=== PATIENT | female | born 1940 | race Caucasian/White ===

== ENCOUNTER 2016-12-14 16:35 | Inpatient (IN) | payer OTHER ==
[~2016-12-14] VITALS: Ht 167.6 cm; Wt 89.2 kg
[~2016-12-14 16:35] MED LIST: ACET-1311 PO; AMLO5TAB2 PO; ASPCH81X PO; CITA10TA8 PO; CLON0.3D4 TD; INSU100I SC; INSUINJ12 SC; LOSA100T65 PO; MELA1TAB5 PO; MOMLX PO; POTA10CA28 PO; SODIENE PR; dulcolax supp RE
[2016-12-14 16:40] VITALS: Ht 167.6 cm; Wt 89.2 kg
[2016-12-14] MEDS ORDERED: LOSARTAN POTASSIUM 50 MG TAB PO STA (17:24)
[2016-12-14] MEDS ORDERED: AMLODIPINE BESYLATE 5 MG TAB PO STA (17:24)
[2016-12-14 17:35] LABS: BASO % 0.2 %; BASO ABS # 0.01 K/uL (0-0.2); COMPLETE YES; HEMATOCRIT 31.7 % (37-47); IG% 0.4 %; LYMPH % 15.7 %; LYMPH ABS # 0.78 K/uL (1.2-3.4); MEAN CELL VOLUME 85.4 fL (80-100); MEAN CORPUSCULAR HEMOGLOBIN 30.2 pg (25-34); MEAN CORPUSCULAR HGB CONC 35.3 g/dl (32-36); MEAN PLATELET VOLUME 10.3 fL (7.4-10.4); MONO % 7.8 %; NEUT % 75.9 %; PLATELET COUNT 164 K/uL (130-400); RED BLOOD COUNT 3.71 M/uL (4.2-5.4); WHITE BLOOD COUNT 4.97 K/uL (4.8-10.8)
[2016-12-14 17:46] LABS: BUN/CREATININE RATIO 28.5 (10-20); CALCIUM 8.6 mg/dl (8.5-10.1); CREATININE 0.93 mg/dl (0.60-1.20); POTASSIUM 4.6 mmol/L (3.5-5.1)
--- NOTE | 2016-12-14 18:54 | EMERGENCY ROOM VISIT NOTE ---
History Report prepared by Adiel: Sarah Dhaliwal Under the Supervision of: Dr. Fredy Almazan M.D. First contact with patient: 17:13 Chief Complaint: HYPERTENSION Stated Complaint: SENT BY [facility], HIGH BP History of Present Illness The patient is a 76 year old female who presents to the Emergency Room with complaints of persistent hypertension. She received an IV IG infusion at the [facility] earlier today and reports her blood pressure "has been high for the whole day". She admits to a history of hypertension for "20 years" and states she missed her morning dose before she arrived at her infusion appointment because she was rushed. She was given .1 mg of Clonidine around 1300 at the [facility], but states she did not receive her daily dose of Norvasc or her other medication. Staff at the [facility] then checked her blood pressure and noticed it was still elevated, so they referred the patient to the ED. She normally resides at [facility]. She admits to some current blurry vision but denies any dizziness or headache, chest pain, shortness of breath, nausea, vomiting, numbness or weakness in her legs or urinary symptoms. 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 A total of 10 systems reviewed and were otherwise negative. Past Medical & Surgical Medical Problems: (1) CIDP (chronic inflammatory demyelinating polyneuropathy) (2) Diab Felisha Wo Comp Type I Not Uncontrolled (3) Hypertension Nos Surgical Problems: (1) History of cholecystectomy (2) History of tonsillectomy Social History Smoking Status: Never Smoker Alcohol Use: none Drug Use: none Marital Status: Housing Status: pen[facility]entiary ([facility]) Occupation Status: retired Current/Historical Medications Scheduled Acetaminophen (Tylenol), 325 MG PO DIRECTED Amlodipine Besylate (Norvasc), 10 MG PO DAILY Aspirin (Aspirin Chewable), 81 MG PO DAILY Insulin Detmir (Levemir), 17 UNITS SC BID Insulin Lispro (Human) (Humalog), 10 UNITS SC BID Allergies Coded Allergies: Mycophenolate (Verified Allergy, Unknown, unknown, 12/14/16) info from [facility] Nortriptyline (Verified Allergy, Unknown, unknown, 12/14/16) info from [facility] Gabapentin (Verified Adverse Reaction, Intermediate, DOUBLE VISION, NAUSEA , VOMITING, 12/14/16) Physical Exam Vital Signs Date Time Temp Pulse Resp B/P Pulse Ox O2 Delivery O2 Flow Rate FiO2 12/14/16 17:49 48 18 230/89 99 Room Air 12/14/16 16:40 36.4 49 18 213/80 98 Room Air Physical Exam Constitutional: Vital signs reviewed. Eyes: Pupils are equal round reactive to light. Conjunctiva are noninjected. ENT: Pharynx is clear without erythema or exudate. Mucous membranes are moist. Neck supple without meningeal signs. Respiratory: Clear to auscultation bilaterally. Breath sounds are equal bilaterally. Cardiovascular: Regular rate and rhythm. No rubs or gallops. GI: Soft, nondistended and nontender. Bowel sounds are present. Musculoskeletal: No peripheral edema. Integumentary: No cyanosis. Neurological: The patient is awake and alert. Cranial nerves II-XII are intact. Motor is 5 out of 5 all extremities. Sensation is intact to light touch all extremities. Normal speech. Psychiatric: Normal affect. Medical Decision & Procedures Laboratory Results 12/14/16 17:05 Red Blood Count 3.71, Mean Corpuscular Volume 85.4, Mean Corpuscular Hemoglobin 30.2, Mean Corpuscular Hemoglobin Concent 35.3, Mean Platelet Volume 10.3, Neutrophils (%) (Auto) 75.9, Lymphocytes (%) (Auto) 15.7, Monocytes (%) (Auto) 7.8, Eosinophils (%) (Auto) 0.0, Basophils (%) (Auto) 0.2, Neutrophils # (Auto) 3.77, Lymphocytes # (Auto) 0.78, Monocytes # (Auto) 0.39, Eosinophils # (Auto) 0.00, Basophils # (Auto) 0.01 12/14/16 17:05 Test 12/14/16 17:05 12/14/16 18:31 White Blood Count 4.97 K/uL (4.8-10.8) Red Blood Count 3.71 M/uL (4.2-5.4) Hemoglobin 11.2 g/dL (12.0-16.0) Hematocrit 31.7 % (37-47) Mean Corpuscular Volume 85.4 fL (80-100) Mean Corpuscular Hemoglobin 30.2 pg (25-34) Mean Corpuscular Hemoglobin Concent 35.3 g/dl (32-36) Platelet Count 164 K/uL (130-400) Mean Platelet Volume 10.3 fL (7.4-10.4) Neutrophils (%) (Auto) 75.9 % Lymphocytes (%) (Auto) 15.7 % Monocytes (%) (Auto) 7.8 % Eosinophils (%) (Auto) 0.0 % Basophils (%) (Auto) 0.2 % Neutrophils # (Auto) 3.77 K/uL (1.4-6.5) Lymphocytes # (Auto) 0.78 K/uL (1.2-3.4) Monocytes # (Auto) 0.39 K/uL (0.11-0.59) Eosinophils # (Auto) 0.00 K/uL (0-0.5) Basophils # (Auto) 0.01 K/uL (0-0.2) RDW Standard Deviation 43.0 fL (36.4-46.3) RDW Coefficient of Variation 13.8 % (11.5-14.5) Immature Granulocyte % (Auto) 0.4 % Immature Granulocyte # (Auto) 0.02 K/uL (0.00-0.02) Anion Gap 9.0 mmol/L (3-11) Est Creatinine Clear Calc Drug Dose 61.1 ml/min Estimated GFR () 68.7 Estimated GFR (Non- 59.3 BUN/Creatinine Ratio 28.5 (10-20) Calcium Level 8.6 mg/dl (8.5-10.1) Troponin I 0.160 ng/ml (0-0.045) Laboratory results as reviewed by me. Medications Administered Medications (Trade) Dose Ordered Sig/Mila Route Start Time Stop Time Status Last Admin Dose Admin Losartan Potassium (coZAAR TAB) 100 mg NOW STAT PO 12/14/16 17:24 12/14/16 17:25 DC 12/14/16 17:40 100 MG Amlodipine Besylate (Norvasc Tab) 5 mg NOW STAT PO 12/14/16 17:24 12/14/16 17:25 DC 12/14/16 17:40 5 MG ECG Indication: other (elevated blood pressure) Rate (beats per minute): 50 Rhythm: sinus bradycardia Findings: no acute ischemic change, no ectopy ED Course 171: The patient was evaluated in room C3. A complete history and physical exam was performed. 172: Norvasc Tab 5 mg PO, Losartan Potassium 100 mg PO. 181: I reevaluated the patient. She has had no chest pain or shortness of breath. Her blood pressure is still elevated but she just recently got her blood pressure medication. 184: I discussed the patients case with Dr. Langford [facility] Hospitalist. The patient will be further evaluated. Medical Decision This is a 76-year-old female who presents with elevated blood pressure. Differential diagnosis includes essential hypertension, medication noncompliance , metabolic derangement, hypertensive urgency. I did perform a limited focused review of portions of the patient's old chart on the electronic medical record. The patient has had progressively elevated blood pressures for the past several months. She has been bradycardic as well. I did evaluate the patient as noted above. The patient is currently asymptomatic. She does have significantly elevated blood pressures. She does state that she did not take her blood pressure medicines this morning in order to get the EMT you. She was given clonidine in the EMT. IV access was established. The patient was placed on a continuous monitoring analyst. I did treat her with Norvasc and Cozaar. I did order and personally review the patient's 12-lead EKG and chest x-ray as described above. I did order and review the patient's blood work as noted in the electronic medical record. Her blood work demonstrates a slightly elevated troponin. I did reassess the patient. She still has elevated blood pressures but she just received the medication. I did not wish to give her anymore immediately to avoid over correcting her blood pressure. She is bradycardic but she has been bradycardic in the past and is currently asymptomatic. She denies having any chest discomfort or shortness of breath. She will be hospitalized for further management. I did discuss case with the hospital setting high risk case manager. Consults Time Called: 183 Consulting Physician: Dr. Langford [facility] Hospitalist Returned Call: [phone] I discussed the patients case with Dr. Langford [facility] Hospitalist. The patient will be further evaluated. Impression Primary Impression: Hypertensive urgency Additional Impression: Elevated troponin Scribe Attestation The scribe's documentation has been prepared under my direct and personally reviewed by me in its entirety. I confirm that the note above accurately reflects all work, treatment, procedures, and medical decision making performed by me. Departure Information Dispostion Being Evaluated By Hospitalist Referrals [facility] (PCP) Patient Instructions My [facility] Problem Qualifiers
[2016-12-14] MEDS ORDERED: ALUMINUM/MAGNESIUM/SIMETH (MAALOX MAX) 30 ML UDC PO PRN (19:15)
[2016-12-14] MEDS ORDERED: LORAZEPAM 2 MG/ML 1 ML VIAL IV PRN (19:15)
[2016-12-14] MEDS ORDERED: PROMETHAZINE HCL INJ 12.5 MG in SODIUM CHLORIDE 0.9% 50ML 50 ML IV PRN (19:15)
[2016-12-14] MEDS ORDERED: ACETAMINOPHEN 325 MG TAB PO PRN ×2 (19:15)
[2016-12-14] MEDS ORDERED: MAGNESIUM HYDROXIDE SUSP 30 ML UDC PO PRN (19:15)
[2016-12-14] MEDS ORDERED: ONDANSETRON INJ 2 MG/ML 2 ML VIAL IV PRN (19:15)
[2016-12-14] MEDS ORDERED: DiphenhydrAMINE HCL 50 MG/ML VIAL IV PRN (19:15)
[2016-12-14] MEDS ORDERED: MoRPHine SULFATE 2 MG/ML CARP IV PRN (19:15)
[2016-12-14] MEDS ORDERED: NITROGLYCERIN 0.4 MG SL PER TAB CHARGE SL PRN (19:15)
[2016-12-14] MEDS ORDERED: ZOLPIDEM TARTRATE 5 MG TAB PO PRN ×2 (19:15)
[2016-12-14] MEDS ORDERED: BISACODYL 10 MG SUPP PR PRN (19:15)
[2016-12-14] MEDS ORDERED: ASPIRIN 81 MG CHEW PO STA (19:21)
--- NOTE | 2016-12-14 19:26 | History and Physical ---
History & Physical Date & Time of Service: Dec 14, 2016 at 19:25 Chief Complaint: Sent By [facility], High Bp Primary Care Physician: [facility] Sheehan History of Present Illness Source: patient The patient is a 76-year-old female who is referred to the emergency department from the [facility] when she arrived therefore routine IVIG infusion was found to have elevated blood pressure with systolic over 200. She admits to missing her morning dose of medications for blood pressure before going to the infusion clinic today. She was given 0.1 mg clonidine around 1300 hrs. clinic and blood pressure was persistently elevated and she was referred to ED for assessment. In the emergency department, her blood pressure was elevated, and routine blood tests revealed elevated troponin of 0.160, at which point she was referred for evaluation for admission. The patient denies chest pain or shortness of breath. 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 (2) Diab Felisha Wo Comp Type I Not Uncontrolled Status: Chronic (3) Hypertension Nos Status: Chronic Surgical Problems: (1) History of cholecystectomy Status: Resolved (2) History of tonsillectomy Status: Resolved Social History Smoking Status: Never Smoker Smokeless Tobacco Use: No Alcohol Use: none Drug Use: none Marital Status: Occupational Status: retired Multi-Drug Resistant Organisms History of MDRO: No Allergies Coded Allergies: Mycophenolate (Verified Allergy, Unknown, unknown, 12/14/16) info from [place] [facility] Nortriptyline (Verified Allergy, Unknown, unknown, 12/14/16) info from [facility] Gabapentin (Verified Adverse Reaction, Intermediate, DOUBLE VISION, NAUSEA , VOMITING, 12/14/16) Home Medications Scheduled Acetaminophen (Tylenol), 325 MG PO DIRECTED Amlodipine Besylate (Norvasc), 10 MG PO DAILY Aspirin (Aspirin Chewable), 81 MG PO DAILY Insulin Detmir (Levemir), 17 UNITS SC BID Insulin Lispro (Human) (Humalog), 10 UNITS SC BID Review of Systems The patient denies chest pain, palpitations, shortness of breath, cough, lower extremity swelling, vision change, hearing change, sore throat, fevers, chills, sweats, weight change, fatigue, nausea, vomiting, abdominal pain, pelvic pain, blood in urine or stool, dysuria, urinary frequency or urgency, lightheadedness , dizziness, headache, memory loss, rash, abnormal bruising or bleeding, imbalance, focal or generalized weakness, numbness or tingling in arms or legs, arthralgias or myalgias, back or neck pain, night sweats, or allergy symptoms. The review of systems is otherwise negative other than for that already noted above, and at least 10 systems have been reviewed. Physical Exam Vital Signs Date Time Temp Pulse Resp B/P Pulse Ox O2 Delivery O2 Flow Rate FiO2 12/14/16 19:03 47 18 224/94 97 Room Air 12/14/16 17:49 48 18 230/89 99 Room Air 12/14/16 16:40 36.4 49 18 213/80 98 Room Air The patient is awake, well-developed and adequately nourished, alert and oriented 3, normocephalic and atraumatic, lying in bed and in no acute distress. HEENT--PERRL, EOMI, mucous membranes moist, and oropharynx normal. Neck--supple, no JVD or bruits, thyroid normal, trachea midline, no adenopathy. Heart--normal S1 and S2, no extra beats, no murmurs, rubs or gallops. Lungs--clear bilaterally with good air movement, no respiratory distress, no accessory muscle use. Abdomen--normal bowel sounds and soft, nontender and nondistended, no hernias or masses, no organomegaly. Extremities--no cyanosis, clubbing or edema. There are good distal pulses b/l. Dermatologic--normal skin turgor, normal color, warm and dry, no abnormal lymph nodes, no rash. Neurologic--cranial nerves II through XII grossly intact, motor and sensory examination normal. Rheumatologic--normal range of motion, nontender, muscles and joints. Psychiatric--normal affect. Diagnostics Laboratory Results Results Past 24 Hours Test 12/14/16 17:05 12/14/16 19:11 Range/Units White Blood Count 4.97 4.8-10.8 K/uL Red Blood Count 3.71 4.2-5.4 M/uL Hemoglobin 11.2 12.0-16.0 g/dL Hematocrit 31.7 37-47 % Mean Corpuscular Volume 85.4 80-100 fL Mean Corpuscular Hemoglobin 30.2 25-34 pg Mean Corpuscular Hemoglobin Concent 35.3 32-36 g/dl Platelet Count 164 130-400 K/uL Mean Platelet Volume 10.3 7.4-10.4 fL Neutrophils (%) (Auto) 75.9 % Lymphocytes (%) (Auto) 15.7 % Monocytes (%) (Auto) 7.8 % Eosinophils (%) (Auto) 0.0 % Basophils (%) (Auto) 0.2 % Neutrophils # (Auto) 3.77 1.4-6.5 K/uL Lymphocytes # (Auto) 0.78 1.2-3.4 K/uL Monocytes # (Auto) 0.39 0.11-0.59 K/uL Eosinophils # (Auto) 0.00 0-0.5 K/uL Basophils # (Auto) 0.01 0-0.2 K/uL RDW Standard Deviation 43.0 36.4-46.3 fL RDW Coefficient of Variation 13.8 11.5-14.5 % Immature Granulocyte % (Auto) 0.4 % Immature Granulocyte # (Auto) 0.02 0.00-0.02 K/uL Sodium Level 129 136-145 mmol/L Potassium Level 4.6 3.5-5.1 mmol/L Chloride Level 98 98-107 mmol/L Carbon Dioxide Level 22 21-32 mmol/L Anion Gap 9.0 3-11 mmol/L Blood Urea Nitrogen 27 7-18 mg/dl Creatinine 0.93 0.60-1.20 mg/dl Est Creatinine Clear Calc Drug Dose 61.1 ml/min Estimated GFR () 68.7 Estimated GFR (Non- 59.3 BUN/Creatinine Ratio 28.5 10-20 Random Glucose 191 70-99 mg/dl Calcium Level 8.6 8.5-10.1 mg/dl Troponin I 0.160 0-0.045 ng/ml Creatine Kinase MB Ratio 0-3.0 EKG EKG shows Sinus bradycardia at a rate of 50 bpm, with no acute ST-T changes. Impression Assessment and Plan Hypertensive urgency, with elevated troponin--the patient will be admitted to the telemetry unit, for serial cardiac enzymes, cardiac rhythm monitoring, and a 2-D echocardiogram with Dopplers. She had been given clonidine 0.1 mg while at the [facility], and amlodipine 10 mg orally and Cozaar 100 mg orally while in the emergency department, with persistently elevated blood pressure. She'll be placed on Nitropaste 1 inch to the anterior chest wall every 6 hours, and hydralazine 10 mg IV every 4 hours when necessary systolic blood pressure greater than 150. Continue aspirin chewable 81 mg by mouth daily. Diabetes mellitus--continue insulin Levemir 17 units subcutaneous twice a day, and hold her usual Humalog 10 units subcutaneous twice a day. Place on Accu- Cheks before meals and at bedtime with NovoLog coverage. Hyponatremia--she'll be on normal saline with potassium chloride 20 mEq at 100 ML's per hour, and will recheck a BMP and magnesium levels in the a.m. Level of Care Telemetry Advanced Directives Existing Advance Directive: No Existing Living Will: No Existing Power of Public Health Nutritionist: No Resuscitation Status FULL RESUSCITATION VTE Prophylaxis VTE Risk Assessment Done? Y/N: Yes Risk Level: Moderate Given or contraindicated: SCD's
[2016-12-14] MEDS ORDERED: GLUCAGON FOR INJ 1 MG VIAL SQ PRN (19:30)
[2016-12-14] MEDS ORDERED: GLUCOSE 10 TABS/TUBE PO PRN (19:30)
[2016-12-14] MEDS ORDERED: GLUCOSE 40% GEL 15 GM TUBE PO PRN (19:30)
[2016-12-14] MEDS ORDERED: DEXTROSE 50% 50 ML SYR IV PRN (19:30)
[2016-12-14 19:42] LABS: CKMB/CK RATIO 2.4 (0-3.0)
[2016-12-14] MEDS ORDERED: LORAZEPAM INJ 0.5 MG in SYRINGE 0.75 ML IV PRN (20:00)
[2016-12-14 20:20] VITALS: BP 204/69; PULSE 49; TEMP 36.4; O2SAT 97
[2016-12-14] MEDS: NITROGLYCERIN OINT 2% 1GM PACKET EXT SCH (21:56)
[2016-12-14] MEDS: DOCUSATE SODIUM 100 MG CAP PO SCH (21:57)
[2016-12-14] MEDS: INSULIN ASPART 100 UNITS/ML 3 ML PEN SC SCH (21:58)
[2016-12-14 23:15] VITALS: BP 184/65; PULSE 50; TEMP 36.3; O2SAT 93
[2016-12-14] MEDS: HydrALAZINE HCL 20 MG/ML VIAL IV. PRN (23:19)
[2016-12-15] VITALS (10 sets, daily range): BP systolic 154–187; BP diastolic 61–95; PULSE 44–63; TEMP 36.2–36.8; O2SAT 96–98
[2016-12-15 03:28] LABS: BASO % 0.2 %; BASO ABS # 0.01 K/uL (0-0.2); COMPLETE YES; HEMATOCRIT 30.4 % (37-47); IG% 0.4 %; LYMPH % 34.3 %; MEAN CELL VOLUME 84.7 fL (80-100); MEAN CORPUSCULAR HEMOGLOBIN 30.9 pg (25-34); MEAN CORPUSCULAR HGB CONC 36.5 g/dl (32-36); MEAN PLATELET VOLUME 9.9 fL (7.4-10.4); MONO % 14.1 %; PLATELET COUNT 144 K/uL (130-400); RED BLOOD COUNT 3.59 M/uL (4.2-5.4); WHITE BLOOD COUNT 4.67 K/uL (4.8-10.8)
[2016-12-15 03:42] LABS: PROTHROMBIN TIME (PATIENT) 10.5 SECONDS (9.0-12.0)
[2016-12-15 03:54] LABS: BUN/CREATININE RATIO 30.6 (10-20); CALCIUM 8.2 mg/dl (8.5-10.1); CREATININE 0.9 mg/dl (0.60-1.20); MAGNESIUM 2.1 mg/dl (1.8-2.4); POTASSIUM 4.1 mmol/L (3.5-5.1)
[2016-12-15 04:00] LABS: CKMB/CK RATIO 2.8 (0-3.0)
[2016-12-15] MEDS: NITROGLYCERIN OINT 2% 1GM PACKET EXT SCH ×4 (04:06→22:37)
[2016-12-15] MEDS: INSULIN ASPART 100 UNITS/ML 3 ML PEN SC SCH ×4 (08:01→19:58)
[2016-12-15] MEDS: ASPIRIN 81 MG ECTAB PO SCH (08:01)
[2016-12-15] MEDS: DOCUSATE SODIUM 100 MG CAP PO SCH ×2 (08:02→19:56)
--- NOTE | 2016-12-15 09:53 | CARDIOLOGY CONSULTATION ---
DATE OF CONSULTATION: 12/15/2016 CONSULTATION REQUESTED BY: Andrew Langford MD REASON FOR CONSULTATION: Elevated troponin. HISTORY OF PRESENT ILLNESS: Ms. Rodriguez is a pleasant 76-year-old woman with a history of chronic inflammatory demyelinating polyneuropathy, diabetes, hypertension, and mild dementia who was admitted yesterday in the setting of hypertension and found to have mild troponin elevation. Cardiology consulted for further management recommendations. The patient has no outpatient shank skinner. The patient states she has been in the usual state of health. She resides at [facility] at baseline. She has had longstanding chronic inflammatory demyelinating polyneuropathy, for which she has gotten IVIG monthly for years. She was undergoing a normal treatment yesterday when the patient was noted to be hypertensive with systolic blood pressures in the 200s. The patient has longstanding high blood pressures, has previously been on clonidine patch and takes 10 mg of Norvasc. She stated that she did not take her prescribed Norvasc that a.m. At therapy, she received 0.1 of clonidine as well as 10 mg of Norvasc; however, blood pressure remained elevated. She was asymptomatic without any chest pain or headache, but due to difficultly with controlling her blood pressure, she was transferred to the Emergency Department. In the Emergency Department, she was noted to have a troponin elevated at 0.16. Her initial EKG showed sinus bradycardia with LVH, but no dynamic ST changes. In the Emergency Department, she was given aspirin, given nitro paste, given losartan and amlodipine. Overnight, her blood pressure trended down. This morning, her blood pressure is 156/81. She feels well. Denies any chest pain overnight. No events on telemetry. No other concerns. PAST MEDICAL HISTORY: 1. Chronic inflammatory demyelinating polyneuropathy on monthly IVIG for years. 2. Type 2 diabetes on insulin therapy. 3. Hypertension. 4. Mild dementia. 5. Osteoporosis. PAST SURGICAL HISTORY: Prior cholecystectomy, prior tonsillectomy. SOCIAL HISTORY: Lives at [facility]. Moved from [place] to [facility] to be close to her daughter. Denies smoking, alcohol or tobacco. 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 MEDICATIONS: 1. Tylenol. 2. Amlodipine 5. 3. Aspirin 81. 4. Levemir. 5. Insulin lispro. 6. Chronic patch 0.3 mcg. ALLERGIES: ALLERGIC TO GABAPENTIN, MYCOPHENOLATE, AND NORTRIPTYLINE. REVIEW OF SYSTEMS: Ten-point review of systems was completed and otherwise negative unless stated in HPI. PHYSICAL EXAMINATION: VITAL SIGNS: Temperature 36.5, heart rate 48, satting 96% on room air. GENERAL: The patient appears comfortable, in no acute distress. HEENT: Sclerae are anicteric. Oropharynx is clear. Mucous membranes are moist. NECK: Supple with no lymphadenopathy. She has no jugular venous distention. LUNGS: Clear to auscultation bilaterally. CARDIAC: She has distant heart sounds, but regular, bradycardic with no appreciable murmurs, rubs or gallops. ABDOMEN: Soft, nontender, nondistended with positive bowel sounds. EXTREMITIES: Warm. She has no significant lower extremity edema and has intact distal pulses. SKIN: Shows no rashes or lesions. NEUROLOGIC: Alert and oriented x2. Cranial nerves II-XII are grossly intact. Remainder of exam was nonfocal. LABORATORY DATA: White blood cell count 4.7, hemoglobin 11.1, platelets of 144. INR is 1.0. Sodium initially 135 this morning, potassium 4.1, BUN 28, creatinine 0.9. LFTs within normal limits. Albumin low at 2.7. Initial troponin 0.16 and 0.15, then 0.14. EKG; sinus bradycardia, ventricular rate of [address] changes and evidence of LVH. Telemetry reviewed, sinus bradycardia, occasional PACs and PVCs, otherwise no significant events. IMPRESSION AND PLAN: 1. Hypertension. 2. Mildly elevated troponin. 3. Hyponatremia. 4. Diabetes. 5. Chronic inflammatory demyelinating polyneuropathy. The patient has remained chest pain through presentation and hospitalization. Troponin minimally elevated and has peaked and suspect demand ischemia in the setting of hypertension and left ventricular hypertrophy. Low suspicion for acute coronary syndrome. Going forward blood pressure control is improved on current therapy and would consider discharging on prior clonidine patch, Norvasc and REBECCA or ARB, previously was on lisinopril discontinued more than a year ago. In regards to patient's minimally elevated troponin, echo pending for today. Assuming unremarkable, would consider a stress test as an outpatient to further risk stratify, but no additional workup would required inpatient currently. Thank you for allowing us to participate in the care of this patient. Please contact us with any questions. ED
--- NOTE | 2016-12-15 11:57 | ECHOCARDIOGRAM REPORT ---
*NOTICE TO RECEIVING REPUBLICAN AGENCY This information is strictly Confidential and protected under [place] law. [place] law prohibits you from making any further disclosure of this information unless further disclosure is expressly permitted by the written consent of the person to whom it pertains or is authorized by law. A general authorization for the release of medical or other information is not sufficient for this purpose. Hospital accepts no responsibility if the information is made available to any other person, INCLUDING THE PATIENT. Interpretation Summary * Name: RAMO LANG Study Date: 12/15/2016 08:19 AM BP: 168/61 mmHg * Patient Location: [facility] HR: 47 * : 1940 (M/d/yyyy) Gender: Female Height: 66 in * Age: 76 yrs Ethnicity: CA Weight: 224 lb * Ordering Physician: Andrew Langford * Performed By: Lore Cardozo RCS * * Reason For Study: ELEVATED TROPONIN * BSA: 2.1 m2 * -- Conclusions -- * 1. Normal LV size. Severe concentric LVH. * 2. Normal LV systolic function. LVEF 60-65%. No regional wall motion abnormalities. * 3. Grade II diastolic dysfunction. * 4. Normal RV size and function. * 5. Trace MR, Trace TR, Mild-moderate PI. * 6. Dilated IVC suggestive of elevated RA pressure (Est 15 mmHg). * 7. No prior studies for comparison. Procedure Details * A complete two-dimensional transthoracic echocardiogram was performed (2D, M-mode, Doppler and color flow Doppler). Left Ventricle * The left ventricle is grossly normal size. * There is severe concentric left ventricular hypertrophy. * Ejection Fraction = 60-65%. * No regional wall motion abnormalities noted. Right Ventricle * The right ventricle is grossly normal size. * The right ventricular systolic function is normal as assessed by tricuspid annular plane systolic excursion (TAPSE) (normal >1.5 cm). Atria * The left atrium is mildly dilated. * The right atrium is moderately dilated. * No ASD detected; PFO is not assessed. Mitral Valve * There is mild mitral annular calcification. * Mitral stenosis is absent. * There is trace mitral regurgitation. Tricuspid Valve * The tricuspid valve is not well visualized, but is grossly normal. * There is no tricuspid stenosis. * There is trace tricuspid regurgitation. Aortic Valve * The aortic valve opens well. * The aortic valve is trileaflet. * No hemodynamically significant valvular aortic stenosis. * There is no significant aortic regurgitation. Pulmonic Valve * The pulmonic valve is not well seen, but is grossly normal. * There is no pulmonic valvular stenosis. * Mild to moderate pulmonic valvular regurgitation. Great Vessels * The aortic root and proximal ascending aorta are normal sized. Pericardium/Pleural * There is no pericardial effusion. Great Vessels * Dilated inferior vena cava with reduced collapsability with sniff indicates an elevated right atrial pressure of 15 mmHg Left Ventricular Diastolic Function * Diastolic dysfunction, Grade II (pseudonormalization pattern). MMode 2D Measurements and Calculations IVSd 1.6 cm IVSs 2.1 cm LVIDd 4.7 cm LVIDs 3.3 cm LVPWd 1.4 cm LVPWs 1.5 cm IVS/LVPW 1.1 FS 29.7 % EDV(Teich) 104.0 ml ESV(Teich) 45.0 ml EF(Teich) 56.7 % EDV(cubed) 105.9 ml ESV(cubed) 36.9 ml EF(cubed) 65.2 % % IVS thick 38.1 % % LVPW thick 10.0 % LV mass(C)d 290.9 grams LV mass(C)dI 138.6 grams/m\S\2 LV mass(C)s 257.7 grams LV mass(C)sI 122.8 grams/m\S\2 SV(Teich) 58.9 ml SI(Teich) 28.1 ml/m\S\2 SV(cubed) 69.0 ml SI(cubed) 32.9 ml/m\S\2 Ao root diam 3.9 cm Ao root area 12.2 cm\S\2 ACS 1.9 cm LA dimension 4.6 cm LA/Ao 1.2 LVOT diam 2.0 cm LVOT area 3.0 cm\S\2 LVAd ap4 36.5 cm\S\2 LVLd ap4 8.0 cm EDV(MOD-sp4) 134.4 ml EDV(sp4-el) 141.6 ml LVAs ap4 21.8 cm\S\2 LVLs ap4 6.5 cm ESV(MOD-sp4) 59.6 ml ESV(sp4-el) 62.0 ml EF(MOD-sp4) 55.7 % EF(sp4-el) 56.2 % LVAd ap2 35.3 cm\S\2 LVLd ap2 7.8 cm EDV(MOD-sp2) 129.9 ml EDV(sp2-el) 136.3 ml LVAs ap2 23.8 cm\S\2 LVLs ap2 7.4 cm ESV(MOD-sp2) 67.1 ml ESV(sp2-el) 65.4 ml EF(MOD-sp2) 48.4 % EF(sp2-el) 52.0 % LVLd %diff -2.62 % EDV(MOD-bp) 132.8 ml LVLs %diff 11.5 % ESV(MOD-bp) 66.9 ml EF(MOD-bp) 49.6 % SV(MOD-sp4) 74.8 ml SI(MOD-sp4) 35.7 ml/m\S\2 SV(MOD-sp2) 62.9 ml SI(MOD-sp2) 29.9 ml/m\S\2 SV(MOD-bp) 65.9 ml SI(MOD-bp) 31.4 ml/m\S\2 SV(sp4-el) 79.6 ml SI(sp4-el) 37.9 ml/m\S\2 SV(sp2-el) 70.8 ml SI(sp2-el) 33.7 ml/m\S\2 Doppler Measurements and Calculations MV E max jorge 115.4 cm/sec MV A max jorge 75.5 cm/sec MV E/A 1.5 MV P1/2t max jorge 116.5 cm/sec MV P1/2t 102.7 msec MVA(P1/2t) 2.1 cm\S\2 MV dec slope 332.2 cm/sec\S\2 MV dec time 0.31 sec Ao V2 max 162.4 cm/sec Ao max PG 10.6 mmHg Ao max PG (full) 7.1 mmHg CRISTINA(V,A) 1.7 cm\S\2 CRISTINA(V,D) 1.7 cm\S\2 LV V1 max PG 3.4 mmHg LV V1 max 92.7 cm/sec PA V2 max 110.6 cm/sec PA max PG 4.9 mmHg PI max jorge 197.2 cm/sec PI max PG 15.6 mmHg PI dec slope 169.1 cm/sec\S\2 PI P1/2t 341.4 msec
[2016-12-15 12:09] LABS: CKMB/CK RATIO 2.7 (0-3.0)
--- NOTE | 2016-12-15 16:51 | Progress Note ---
Subjective Date of Service: Dec 15, 2016. Subjective Pt evaluation today including: conversation w/ patient, conversation w/ family , physical exam, chart review, lab review, conversation w/ job service consultant Problem List Medical Problems: (1) Elevated troponin Status: Acute (2) Hypertension Nos Status: Chronic (3) Hypertensive urgency Status: Acute Review of Systems Constitutional: + fever, No chills, No fatigue, No problem reported, No see HPI , No sweats, No weakness, No weight loss Eyes: No diplopia, No discharge, No eye pain, No problem reported, No redness, No see HPI, No worsening of vision ENT: No dental problems, No hearing loss, No nasal symptoms, No problem reported, No see HPI, No sore throat, No tinnitus, No trouble swallowing, No unusual epistaxis Respiratory: No cough, No dyspnea at rest, No dyspnea on exertion, No hemoptysis, No problem reported, No see HPI, No shortness of breath, No sputum, No wheezing Cardiac: No PND, No chest pain, No claudication, No edema, No orthopnea, No palpitations, No problem reported, No see HPI Breast: No breast lump, No breast pain, No change in shape, No nipple discharge , No problem reported, No see HPI Abdomen: No GI bleeding, No constipation, No diarrhea, No nausea, No pain, No problem reported, No see HPI, No vomiting Musculoskeletal: No calf pain, No joint pain, No muscle pain, No problem reported, No see HPI, No swelling Female : No abnormal vaginal bleeding, No dysuria, No hematuria, No incontinence, No problem reported, No see HPI, No urinary frequency, No vaginal discharge Neurologic: No balance problems, No memory loss, No numbness/tingling, No paralysis, No problem reported, No see HPI, No vertigo, No weakness Psychiatric: No anhedonism, No anxiety, No depression symptoms, No insomnia, No problem reported, No see HPI, No substance abuse Heme: No abnormal bleeding/bruising, No clotting problems, No night sweats, No problem reported, No see HPI, No swollen lymph nodes Endo: No excessive thirst, No excessive urination, No fatigue, No problem reported, No see HPI Skin: No bleeding, No color change, No itch, No new/changing skin lesions, No problem reported, No rash, No see HPI Medications Current Inpatient Medications Medications (Trade) Dose Ordered Sig/Mila Route Start Time Stop Time Status Last Admin Dose Admin Acetaminophen (Tylenol Tab) 650 mg Q4H PRN PO 12/14/16 19:15 01/13/17 19:14 Zolpidem Tartrate (Ambien Tab) 5 mg HSZ PRN PO 12/14/16 19:15 01/13/17 19:14 Nitroglycerin (Nitrostat Tab) 0.4 mg UD PRN SL 12/14/16 19:15 01/13/17 19:14 Lorazepam (Ativan Inj) 0.5 mg Q4H PRN IV 12/14/16 19:15 01/13/17 19:14 Magnesium Hydroxide (Milk Of Magnesia Susp) 30 ml Q6H PRN PO 12/14/16 19:15 01/13/17 19:14 Bisacodyl (Dulcolax Supp) 10 mg DAILY PRN AR 12/14/16 19:15 01/13/17 19:14 Diphenhydramine HCl (Benadryl Inj) 25 mg Q4H PRN IV 12/14/16 19:15 01/13/17 19:14 Al Hydrox/Mg Hydrox/ Simethicone 15 ml 15 ml Q4H PRN PO 12/14/16 19:15 01/13/17 19:14 Promethazine HCl/ Sodium Chloride (Phenergan Inj/ Nss 50ml) 50.5 ml @ 202 mls/hr Q4H PRN IV 12/14/16 19:15 01/13/17 19:14 Ondansetron HCl (Zofran Inj) 4 mg Q6H PRN IV 12/14/16 19:15 01/13/17 19:14 Docusate Sodium (coLACE CAP) 100 mg BID PO 12/14/16 21:00 01/13/17 20:59 12/15/16 08:02 100 MG Morphine Sulfate (MoRPHine SULFATE INJ) 2 mg Q2H PRN IV 12/14/16 19:15 12/28/16 19:14 Insulin Aspart (novoLOG ASPART) SLIDING SCALE If C... ACHS SC 12/14/16 21:00 01/13/17 20:59 12/15/16 08:01 4 UNITS Glucose (Glucose 40% Gel) UD PRN PO 12/14/16 19:30 01/13/17 19:29 Glucose (Glucose Chew Tab) 1 tabs UD PRN PO 12/14/16 19:30 01/13/17 19:29 Dextrose (Dextrose 50% 50ML Syringe) 50 ml UD PRN IV 12/14/16 19:30 01/13/17 19:29 Glucagon (Glucagon Inj) 1 mg UD PRN SQ 12/14/16 19:30 01/13/17 19:29 Hydralazine HCl (HydrALAZINE INJ) 10 mg Q4H PRN IV. 12/14/16 19:30 01/13/17 19:29 12/14/16 23:19 10 MG Nitroglycerin (Nitroglycerin 2% Oint) 1 inch Q6H EXT 12/14/16 22:00 01/13/17 21:59 12/15/16 15:48 1 INCH Aspirin 81 mg 81 mg QAM PO 12/15/16 09:00 01/14/17 08:59 12/15/16 08:01 81 MG Lorazepam/Syringe (Ativan Inj/ Syringe) 1 ml @ 1 mls/min Q4H PRN IV 12/14/16 20:00 01/13/17 19:59 Objective Vital Signs Date Time Temp Pulse Resp B/P Pulse Ox O2 Delivery O2 Flow Rate FiO2 12/15/16 15:27 36.5 46 18 154/72 98 Room Air 12/15/16 12:00 44 12/15/16 12:00 96 Room Air 12/15/16 10:43 36.3 45 20 170/95 98 Room Air 187/74 12/15/16 08:00 96 Room Air 12/15/16 07:12 36.5 45 20 156/81 96 Room Air 12/15/16 04:17 36.2 47 18 168/61 96 Room Air 12/15/16 04:00 Room Air 12/15/16 00:49 160/68 12/14/16 23:59 Room Air 12/14/16 23:15 36.3 50 18 184/65 93 Room Air 12/14/16 20:20 36.4 49 18 204/69 97 Room Air 12/14/16 20:02 58 18 227/99 96 Room Air 12/14/16 19:05 224/94 12/14/16 19:03 47 18 224/94 97 Room Air 12/14/16 17:49 48 18 230/89 99 Room Air 12/14/16 16:40 36.4 49 18 213/80 98 Room Air Physical Exam General Appearance: no apparent distress Eyes: normal inspection, PERRL, EOMI ENT: normal ENT inspection, hearing grossly normal, TMs normal, pharynx normal Neck: supple, no adenopathy, thyroid normal Respiratory/Chest: chest non-tender, lungs clear, normal breath sounds, no respiratory distress Cardiovascular: regular rate, rhythm, no edema, no gallop, no JVD, no murmur Abdomen: normal bowel sounds, non tender, soft, no organomegaly, no pulsatile mass Extremities: normal range of motion, non-tender, normal inspection, no pedal edema Neurologic/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, no motor/sensory deficits, alert, normal mood/affect, oriented x 3 Skin: normal color, warm/dry, no rash Laboratory Results Last 24 Hours Test 12/14/16 17:05 12/14/16 20:44 12/15/16 03:06 12/15/16 07:02 White Blood Count 4.97 K/uL 4.67 K/uL Red Blood Count 3.71 M/uL 3.59 M/uL Hemoglobin 11.2 g/dL 11.1 g/dL Hematocrit 31.7 % 30.4 % Mean Corpuscular Volume 85.4 fL 84.7 fL Mean Corpuscular Hemoglobin 30.2 pg 30.9 pg Mean Corpuscular Hemoglobin Concent 35.3 g/dl 36.5 g/dl Platelet Count 164 K/uL 144 K/uL Mean Platelet Volume 10.3 fL 9.9 fL Neutrophils (%) (Auto) 75.9 % 51.0 % Lymphocytes (%) (Auto) 15.7 % 34.3 % Monocytes (%) (Auto) 7.8 % 14.1 % Eosinophils (%) (Auto) 0.0 % 0.0 % Basophils (%) (Auto) 0.2 % 0.2 % Neutrophils # (Auto) 3.77 K/uL 2.38 K/uL Lymphocytes # (Auto) 0.78 K/uL 1.60 K/uL Monocytes # (Auto) 0.39 K/uL 0.66 K/uL Eosinophils # (Auto) 0.00 K/uL 0.00 K/uL Basophils # (Auto) 0.01 K/uL 0.01 K/uL RDW Standard Deviation 43.0 fL 42.4 fL RDW Coefficient of Variation 13.8 % 13.7 % Immature Granulocyte % (Auto) 0.4 % 0.4 % Immature Granulocyte # (Auto) 0.02 K/uL 0.02 K/uL Sodium Level 129 mmol/L 135 mmol/L Potassium Level 4.6 mmol/L 4.1 mmol/L Chloride Level 98 mmol/L 102 mmol/L Carbon Dioxide Level 22 mmol/L 24 mmol/L Anion Gap 9.0 mmol/L 9.0 mmol/L Blood Urea Nitrogen 27 mg/dl 28 mg/dl Creatinine 0.93 mg/dl 0.90 mg/dl Est Creatinine Clear Calc Drug Dose 61.1 ml/min 58.6 ml/min Estimated GFR () 68.7 71.5 Estimated GFR (Non- 59.3 61.7 BUN/Creatinine Ratio 28.5 30.6 Random Glucose 191 mg/dl 142 mg/dl Calcium Level 8.6 mg/dl 8.2 mg/dl Total Bilirubin 0.4 mg/dl Direct Bilirubin 0.1 mg/dl Aspartate Amino Transf (AST/SGOT) 24 U/L Alanine Aminotransferase (ALT/SGPT) 23 U/L Alkaline Phosphatase 61 U/L Total Creatine Kinase 124 U/L 93 U/L Creatine Kinase MB 3.0 ng/ml 2.6 ng/ml Creatine Kinase MB Ratio 2.4 2.8 Troponin I 0.154 ng/ml 0.144 ng/ml Total Protein 8.9 gm/dl Albumin 2.7 gm/dl Bedside Glucose 212 mg/dl 150 mg/dl Prothrombin Time 10.5 SECONDS Prothromb Time International Ratio 1.0 Activated Partial Thromboplast Time 26.2 SECONDS Partial Thromboplastin Ratio 1.0 Magnesium Level 2.1 mg/dl Test 12/15/16 11:02 12/15/16 11:25 Bedside Glucose 98 mg/dl Total Creatine Kinase 90 U/L Creatine Kinase MB 2.4 ng/ml Creatine Kinase MB Ratio 2.7 Troponin I 0.131 ng/ml Assessment and Plan 76 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 Place on Accu- Cheks before meals and at bedtime with NovoLog coverage. Hyponatremia-improved, DC normal saline, likely nutritional, she is not on any medication that can aggravate that
[2016-12-15] MEDS: HydrALAZINE HCL 20 MG/ML VIAL IV. PRN (20:04)
[2016-12-16 03:00] VITALS: BP 160/72; PULSE 58; TEMP 36.4; O2SAT 97
[2016-12-16] MEDS: NITROGLYCERIN OINT 2% 1GM PACKET EXT SCH ×2 (03:00→10:00)
[2016-12-16 06:23] LABS: BASO % 0.2 %; BASO ABS # 0.01 K/uL (0-0.2); COMPLETE YES; HEMATOCRIT 29.5 % (37-47); IG% 0.2 %; LYMPH % 35.7 %; LYMPH ABS # 1.54 K/uL (1.2-3.4); MEAN CELL VOLUME 85.3 fL (80-100); MEAN CORPUSCULAR HEMOGLOBIN 30.9 pg (25-34); MEAN CORPUSCULAR HGB CONC 36.3 g/dl (32-36); MEAN PLATELET VOLUME 9.8 fL (7.4-10.4); MONO % 16.5 %; NEUT % 47.4 %; PLATELET COUNT 162 K/uL (130-400); RED BLOOD COUNT 3.46 M/uL (4.2-5.4); WHITE BLOOD COUNT 4.31 K/uL (4.8-10.8)
[2016-12-16 06:40] LABS: ESTIMATED AVERAGE GLUCOSE 108 mg/dl; HA1C FLAG Normal (Normal); PARTIAL THROMBOPLASTIN RATIO 1.6; PROTHROMBIN TIME (PATIENT) 10.7 SECONDS (9.0-12.0)
[2016-12-16 06:53] LABS: BUN/CREATININE RATIO 30.2 (10-20); CALCIUM 8.1 mg/dl (8.5-10.1); CREATININE 0.89 mg/dl (0.60-1.20); POTASSIUM 3.8 mmol/L (3.5-5.1)
[2016-12-16 07:09] LABS: ALB/GLOB RATIO 0.5 (0.9-2)
[2016-12-16] MEDS: ASPIRIN 81 MG ECTAB PO SCH (07:40)
[2016-12-16] MEDS: DOCUSATE SODIUM 100 MG CAP PO SCH (07:40)
[2016-12-16] MEDS: INSULIN ASPART 100 UNITS/ML 3 ML PEN SC SCH ×2 (07:43→11:00)
[2016-12-16 07:47] VITALS: BP 180/75; PULSE 49; TEMP 36.8; O2SAT 98
[2016-12-16 08:00] VITALS: O2SAT 96
[2016-12-16] MEDS ORDERED: AMLODIPINE BESYLATE 5 MG TAB PO SCH (09:00)
[2016-12-16] MEDS ORDERED: LOSA1TAB PO (09:31)
[2016-12-16] MEDS ORDERED: HYDR-4717 PO (09:31)
--- NOTE | 2016-12-16 09:34 | Discharge Instructions ---
Discharge Instructions Admission Admission Date: Dec 14, 2016 at 19:09 Admission Diagnosis: Elevated Troponin,Hypertensive Urgency. Discharge Care Plan - Problem: Medical Problems: (1) Elevated troponin (2) Hypertensive urgency Care Plan - Goal(s): Decrease discomfort Care Plan - Instructions: Recommended Home Diet: 1800 [address] Wt Reduction, AHA Phase I (2gmNa/LoCho), Diabetic AHA Phase I Provider Instructions: follow up with family physician in one week to adjust blood pressure medications record blood pressure and heart rate daily in different times for 2 weeks will need sleep study as an out patient will need renal function and potassium level check in 2 weeks as she was recently started on Losartan 12/16/2016 VTE Core Measure Inpt VTE Proph given/why not?: SCD's Follow Up Follow-Up: follow up with family physician in one week to adjust blood pressure medications record blood pressure and heart rate daily in different times for 2 weeks will need sleep study as an out patient will need renal function and potassium level check in 2 weeks as she was recently started on Losartan 12/16/2016 Laboratory Results Test Results: Hemoglobin A1c Test 12/16/16 06:10 Range/Units Estimated Average Glucose 108 mg/dl Hemoglobin A1c 5.4 4.5-5.6 % Juaquin Pressley Recommendations: Call your doctor if: * Temperature above 101 degrees * Pain not relieved by pain medicine ordered * There is increased drainage or redness from any incision * You have any unanswered questions or concerns. Your Doctors Instructions noted above were prepared by provider Jenni Tong.
--- NOTE | 2016-12-16 09:46 | Discharge Summary ---
Discharge Summary Admission Date: Dec 14, 2016 at 19:09 Discharge Date: Dec 16, 2016 Discharge Disposition: Home with services Problems/Secondary Diagnoses: Hypertensive urgency elevated troponin, demand ischemia Diabetes mellitus Hyponatremia morbid obesity clinically suspected obstructive sleep apnea Chronic inflammatory demyelinating polyneuropathy /CIPD Medication Reconciliation New Medications: Hydralazine Hcl (Apresoline) 50 Mg Tab 1 TAB PO BID for 30 Days, #60 TAB 3 Refills Losartan Potassium (Cozaar) 25 Mg Tab 1 TAB PO DAILY for 30 Days, #30 TAB 1 Refill Continued Medications: Acetaminophen (Tylenol) 325 Mg Tab 325 MG PO DIRECTED, TAB Amlodipine Besylate (Norvasc) 5 Mg Tab 10 MG PO DAILY Aspirin (Aspirin Chewable) 81 Mg Chew 81 MG PO DAILY Insulin Detmir (Levemir) Inj 17 UNITS SC BID, VIAL TAKES AT 629 & 2029 Insulin Lispro (Human) (Humalog) 100 Unit/Ml Inj 10 UNITS SC BID takes with lunch and supper Discharge Exam Follow up with family physician in 2 weeks for BMP check as she was started on Losartan today also will need sleep study as an out patient monitor blood pressure daily Review of Systems: Constitutional: No chills, No fatigue, No fever, No problem reported, No sweats, No weakness, No weight loss Eyes: No diplopia, No discharge, No eye pain, No problem reported, No redness, No worsening of vision ENT: No dental problems, No hearing loss, No nasal symptoms, No problem reported, No sore throat, No tinnitus, No trouble swallowing, No unusual epistaxis Respiratory: No cough, No dyspnea at rest, No dyspnea on exertion, No hemoptysis, No problem reported, No shortness of breath, No sputum, No wheezing Cardiovascular: No PND, No chest pain, No claudication, No edema, No orthopnea, No palpitations, No problem reported Abdomen: No GI bleeding, No constipation, No diarrhea, No nausea, No pain, No problem reported, No vomiting Musculoskeletal: No calf pain, No joint pain, No muscle pain, No problem reported, No swelling Neurologic: No balance problems, No memory loss, No numbness/tingling, No paralysis, No problem reported, No vertigo, No weakness Psychiatric: No anhedonism, No anxiety, No depression symptoms, No insomnia , No problem reported, No substance abuse Endocrine: No excessive thirst, No excessive urination, No fatigue, No problem reported Hematologic / Lymphatic: No abnormal bleeding/bruising, No clotting problems , No night sweats, No problem reported, No swollen lymph nodes Integumentary: No bleeding, No color change, No itch, No new/changing skin lesions, No problem reported, No rash Physical Exam: General Appearance: no apparent distress Eyes: normal inspection, PERRL, EOMI ENT: normal ENT inspection, hearing grossly normal Neck: supple Respiratory/Chest: chest non-tender, lungs clear, normal breath sounds, no respiratory distress Cardiovascular: regular rate, rhythm, no edema, no gallop, no JVD, no murmur Abdomen / GI: normal bowel sounds, non tender, soft Extremities: normal inspection, no calf tenderness, normal capillary refill , no pedal edema 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, no motor/sensory deficits , alert, normal mood/affect, normal reflexes, oriented x 3 Skin: normal color, warm/dry, no rash Hospital Course 76 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 D/W her daughter and instructed her to follow up with PCP for labs and sleep studies for elevated troponin, demand ischemia, instrumentation controls engineer consult appreciated for Diabetes mellitus--continued insulin Levemir 17 units subcutaneous twice a day, she will follow up with her PCP on that for Hyponatremia-improved, DC normal saline, likely nutritional, she is not on any medication that can aggravate that, and for that she was not given any HCTZ in her antihypertensive regimen. she is stable today for discharge Total Time Spent: Greater than 30 minutes This includes examination of the patient, discharge planning, medication reconciliation, and communication with other providers. Discharge Instructions Please refer to the electronic Patient Visit Report (Discharge Instructions) for additional information.
[2016-12-16 09:54] VITALS: BP 180/75; PULSE 49; TEMP 36.8; O2SAT 96
[2016-12-16 11:43] VITALS: BP 175/60; PULSE 57; TEMP 37; O2SAT 99
[2016-12-16 12:00] VITALS: O2SAT 96
[2017-01-08] MEDS ORDERED: CTP1X PO (09:46)
[2017-01-08] MEDS ORDERED: IRBE1TAB50 PO (09:46)
[2017-01-08] MEDS ORDERED: HYDR-4717 PO (09:46)
[2017-01-08] MEDS ORDERED: CITA10TA4 PO (09:46)
[2017-03-05] MEDS ORDERED: CLON0.1T12 PO (09:15)
[2017-03-05] MEDS ORDERED: CLON0.3T3 PO (09:15)
[2017-04-02] MEDS ORDERED: MIRT15TA2 PO (09:13)
[2017-04-02] MEDS ORDERED: CTP1X PO (09:13)
[2017-04-02] MEDS ORDERED: ACET325T96 PO (09:13)
[2017-07-23] MEDS ORDERED: CLON0.1T12 PO (10:56)
[2017-07-23] MEDS ORDERED: SODI1ENE (10:56)
[2017-07-23] MEDS ORDERED: MOMLX (10:56)
[2017-07-23] MEDS ORDERED: BISA-16 PO (10:56)
[2017-08-20] MEDS ORDERED: LVMI SQ (09:00)
== END 2016-12-16 14:11 | DRG 305 ==
LOC: ENRESERVDT → ENRESERVTM → C.EDB 16:36 → C.2T 19:09
PROVIDERS: ADMIT Hospitalist; ATTEND Hospitalist
DX: I16.0 Hypertensive urgency (principal); I24.8 Other forms of acute ischemic heart disease; E87.1 Hypo-osmolality and hyponatremia; G61.81 Chronic inflammatory demyelinating polyneuritis; E11.9 Type 2 diabetes mellitus without complications; I10 Essential (primary) hypertension; T46.5X6A Underdosing of other antihypertensive drugs, initial encounter; Z91.138 Patient's unintentional underdosing of medication regimen for other reason; I51.7 Cardiomegaly; E66.01 Morbid (severe) obesity due to excess calories; Z68.36 Body mass index [BMI] 36.0-36.9, adult; G47.33 Obstructive sleep apnea (adult) (pediatric); F03.90 Unspecified dementia, unspecified severity, without behavioral disturbance, psychotic disturbance, mood disturbance, and anxiety; M81.0 Age-related osteoporosis without current pathological fracture; Z79.4 Long term (current) use of insulin; Z79.82 Long term (current) use of aspirin; Z79.899 Other long term (current) drug therapy

== ENCOUNTER → 2016-12-22 | Outpatient (CLI) | payer OTHER ==
[~2016-12-22] MED LIST changes: +ACET325T96 PO; +BISA-16 PO; +CITA10TA4 PO; -CITA10TA8 PO; +CLON0.1T12 PO; -CLON0.3D4 TD; +CLON0.3T3 PO; +CTP1X PO; +HYDR-4717 PO; +IRBE1TAB50 PO; -LOSA100T65 PO; +LOSA1TAB PO; +LVMI SQ; -MELA1TAB5 PO; +MIRT15TA2 PO; +MOMLX; -MOMLX PO; -POTA10CA28 PO; +SODI1ENE; -SODIENE PR; -dulcolax supp RE
[2016-12-22 08:22] LABS: BASO % 0.4 %; BASO ABS # 0.02 K/uL (0-0.2); COMPLETE YES; EOS % 0.2 %; HEMATOCRIT 30.3 % (37-47); IG% 0.2 %; LYMPH % 25.1 %; LYMPH ABS # 1.33 K/uL (1.2-3.4); MEAN CELL VOLUME 85.4 fL (80-100); MEAN CORPUSCULAR HEMOGLOBIN 30.4 pg (25-34); MEAN CORPUSCULAR HGB CONC 35.6 g/dl (32-36); MEAN PLATELET VOLUME 9.9 fL (7.4-10.4); MONO % 17.2 %; NEUT % 56.9 %; PLATELET COUNT 329 K/uL (130-400); RED BLOOD COUNT 3.55 M/uL (4.2-5.4); WHITE BLOOD COUNT 5.29 K/uL (4.8-10.8)
[2016-12-22 08:31] LABS: ALT/SGPT 21 U/L (12-78); BLOOD UREA NITROGEN 15 mg/dl (7-18); BUN/CREATININE RATIO 18.6 (10-20); CALCIUM 8.5 mg/dl (8.5-10.1); CARBON DIOXIDE 24 mmol/L (21-32); CHLORIDE 103 mmol/L (98-107); CREATININE 0.83 mg/dl (0.60-1.20); GLUCOSE 78 mg/dl (70-99); POTASSIUM 3.9 mmol/L (3.5-5.1); SODIUM 136 mmol/L (136-145)
[2016-12-22 08:34] LABS: ALB/GLOB RATIO 0.5 (0.9-2); ALKALINE PHOSPHATASE 56 U/L (45-117); AST/SGOT 16 U/L (15-37)
--- NOTE | 2017-01-18 14:14 | CODING QUERY NO DIAGNOSIS ---
TREATMENT RENDERED WITHOUT A DIAGNOSIS To promote full compliance with coding requirements relating to patient care, physician participation is requested in all cases of death surveys coder uncertainty. Please assist us with providing a diagnosis/symptom for the test(s) below: A diagnosis/symptom was not documented on your Order. A valid diagnosis/symptom is required to bill all insurances. Please remember that we are unable to code a diagnosis of rule out, probable, possible, questionable, or suspected. Tests that require a diagnosis: * COMPLETE METABOLIC PROFILE DIAGNOSIS: * HEPATIC FUNCTIONS DIAGNOSIS: * CBC WITH DIFF DIAGNOSIS: Provider Signature: Date: Thank you Sienna See [employer] Information Management Once completed, please kindly fax back to [phone] For questions please call [phone]
== END | disposition home or self-care (01) ==
LOC: C.LABCC 08:09
PROVIDERS: ATTEND Psychiatry & Neurology Neurology
DX: E11.9 Type 2 diabetes mellitus without complications (principal)

== ENCOUNTER → 2016-12-25 | Outpatient (CLI) | payer OTHER ==
[2016-12-25 09:03] LABS: BLOOD UREA NITROGEN 17 mg/dl (7-18); BUN/CREATININE RATIO 19.6 (10-20); CALCIUM 8.6 mg/dl (8.5-10.1); CARBON DIOXIDE 23 mmol/L (21-32); CHLORIDE 100 mmol/L (98-107); CREATININE 0.89 mg/dl (0.60-1.20); GLUCOSE 121 mg/dl (70-99); POTASSIUM 3.9 mmol/L (3.5-5.1); SODIUM 134 mmol/L (136-145)
== END ==
LOC: C.LABCC 08:48
PROVIDERS: ATTEND Internal Medicine
DX: I10 Essential (primary) hypertension (principal)

== ENCOUNTER → 2016-12-27 | Outpatient (CLI) | payer OTHER ==
[2016-12-27 10:19] LABS: FERRITIN 172.2 ng/ml (8.0-388.0)
== END ==
LOC: C.LABCC 09:29
PROVIDERS: ATTEND Internal Medicine
DX: I10 Essential (primary) hypertension (principal); D64.9 Anemia, unspecified

== ENCOUNTER → 2016-12-29 | Outpatient (CLI) | payer OTHER ==
[2016-12-29 08:41] LABS: BASO % 0.5 %; BASO ABS # 0.02 K/uL (0-0.2); BLOOD UREA NITROGEN 20 mg/dl (7-18); BUN/CREATININE RATIO 22.9 (10-20); CALCIUM 8.6 mg/dl (8.5-10.1); CARBON DIOXIDE 22 mmol/L (21-32); CHLORIDE 100 mmol/L (98-107); COMPLETE YES; CREATININE 0.87 mg/dl (0.60-1.20); GLUCOSE 133 mg/dl (70-99); HEMATOCRIT 31.3 % (37-47); LYMPH % 35.6 %; LYMPH ABS # 1.41 K/uL (1.2-3.4); MEAN CELL VOLUME 85.5 fL (80-100); MEAN CORPUSCULAR HEMOGLOBIN 30.3 pg (25-34); MEAN CORPUSCULAR HGB CONC 35.5 g/dl (32-36); MEAN PLATELET VOLUME 9.3 fL (7.4-10.4); MONO % 10.1 %; NEUT % 52.8 %; PLATELET COUNT 441 K/uL (130-400); RED BLOOD COUNT 3.66 M/uL (4.2-5.4); SODIUM 132 mmol/L (136-145); WHITE BLOOD COUNT 3.96 K/uL (4.8-10.8)
== END ==
LOC: C.LABCC 08:17
PROVIDERS: ATTEND Internal Medicine
DX: I10 Essential (primary) hypertension (principal); D64.9 Anemia, unspecified

== ENCOUNTER → 2017-01-02 | Outpatient (CLI) | payer OTHER ==
[2017-01-02 08:49] LABS: BLOOD UREA NITROGEN 18 mg/dl (7-18); CALCIUM 8.9 mg/dl (8.5-10.1); CARBON DIOXIDE 23 mmol/L (21-32); CHLORIDE 101 mmol/L (98-107); GLUCOSE 112 mg/dl (70-99); POTASSIUM 3.8 mmol/L (3.5-5.1); SODIUM 134 mmol/L (136-145)
== END | disposition home or self-care (01) ==
LOC: C.LABCC 08:20
PROVIDERS: ATTEND Internal Medicine
DX: I10 Essential (primary) hypertension (principal); D64.9 Anemia, unspecified

== ENCOUNTER → 2017-01-08 | Outpatient (CLI) | payer OTHER ==
[2017-01-08 08:59] LABS: BLOOD UREA NITROGEN 19 mg/dl (7-18); BUN/CREATININE RATIO 21.8 (10-20); CALCIUM 8.9 mg/dl (8.5-10.1); CARBON DIOXIDE 23 mmol/L (21-32); CHLORIDE 97 mmol/L (98-107); CREATININE 0.85 mg/dl (0.60-1.20); GLUCOSE 80 mg/dl (70-99); POTASSIUM 3.9 mmol/L (3.5-5.1); SODIUM 133 mmol/L (136-145)
== END ==
LOC: C.LABCC 08:37
PROVIDERS: ATTEND Internal Medicine
DX: E87.1 Hypo-osmolality and hyponatremia (principal)

== ENCOUNTER → 2017-01-11 | Outpatient (CLI) | payer OTHER ==
[~2017-01-11] MED LIST changes: -LOSA1TAB PO
[2017-01-11 09:04] LABS: BLOOD UREA NITROGEN 21 mg/dl (7-18); BUN/CREATININE RATIO 22.3 (10-20); CALCIUM 8.9 mg/dl (8.5-10.1); CARBON DIOXIDE 25 mmol/L (21-32); CHLORIDE 99 mmol/L (98-107); CREATININE 0.93 mg/dl (0.60-1.20); GLUCOSE 86 mg/dl (70-99); POTASSIUM 4.3 mmol/L (3.5-5.1); SODIUM 132 mmol/L (136-145)
== END ==
LOC: C.LABCC 07:52
PROVIDERS: ATTEND Internal Medicine
DX: E87.1 Hypo-osmolality and hyponatremia (principal)

== ENCOUNTER → 2017-01-12 | Outpatient (CLI) | payer OTHER ==
--- NOTE | 2017-01-12 09:06 | DIAGNOSTIC IMAGING REPORT ---
DOPPLER ULTRASOUND OF THE RENAL ARTERIES CLINICAL HISTORY: Hypertension. COMPARISON STUDY: Abdominal CT dated 05/08/2011. TECHNIQUE: Doppler sonography of the renal arteries was performed to assess renal artery stenosis. Images are reviewed in the transverse and longitudinal planes. FINDINGS: The kidneys demonstrate mild cortical atrophy and are without hydronephrosis. The right kidney measures 11.8 cm in length and the left kidney measures 11.1 cm in length. On the right, intrarenal arterial resistive indices range from 0.66 to 1.0. Intrarenal arterial waveforms are normal with brisk upstrokes. The right renal arterial waveform is normal, and velocities within the right renal artery measure up to 109 cm/sec. The right renal vein is patent. On the left, intrarenal arterial resistive indices range from 0.65 to 0.68. Intrarenal arterial waveforms are normal with brisk upstrokes. The left renal arterial waveform is normal, and velocities within the left renal artery measure up to 92 cm/sec. The left renal vein is patent. The abdominal aorta is patent. Velocities within the abdominal aorta measure up to 99 cm/s. IMPRESSION: There is no sonographic evidence of renal artery stenosis. Electronically signed by: Zhang Ledesma M.D. 01/12/2017 9:05 AM Dictated Date/Time: 01/12/2017 9:03 AM
== END | disposition home or self-care (01) ==
LOC: C.ULTR 07:44
PROVIDERS: ATTEND Internal Medicine
DX: E87.1 Hypo-osmolality and hyponatremia (principal)

== ENCOUNTER → 2017-01-15 | Outpatient (CLI) | payer OTHER ==
[2017-01-15 09:13] LABS: BLOOD UREA NITROGEN 20 mg/dl (7-18); BUN/CREATININE RATIO 25.3 (10-20); CALCIUM 8.5 mg/dl (8.5-10.1); CARBON DIOXIDE 23 mmol/L (21-32); CHLORIDE 94 mmol/L (98-107); CREATININE 0.79 mg/dl (0.60-1.20); GLUCOSE 62 mg/dl (70-99); POTASSIUM 3.7 mmol/L (3.5-5.1); SODIUM 129 mmol/L (136-145)
== END ==
LOC: C.LABCC 07:59
PROVIDERS: ATTEND Internal Medicine
DX: E87.1 Hypo-osmolality and hyponatremia (principal)

== ENCOUNTER → 2017-01-18 | Outpatient (CLI) | payer OTHER ==
[2017-01-18 09:16] LABS: BLOOD UREA NITROGEN 23 mg/dl (7-18); BUN/CREATININE RATIO 25.4 (10-20); CALCIUM 8.5 mg/dl (8.5-10.1); CARBON DIOXIDE 22 mmol/L (21-32); CHLORIDE 95 mmol/L (98-107); CREATININE 0.89 mg/dl (0.60-1.20); GLUCOSE 82 mg/dl (70-99); POTASSIUM 3.7 mmol/L (3.5-5.1); SODIUM 125 mmol/L (136-145)
== END ==
LOC: C.LABCC 08:42
PROVIDERS: ATTEND Internal Medicine
DX: I10 Essential (primary) hypertension (principal); E87.1 Hypo-osmolality and hyponatremia

== ENCOUNTER → 2017-01-19 | Outpatient (CLI) | payer OTHER ==
[2017-01-19 08:33] LABS: BLOOD UREA NITROGEN 21 mg/dl (7-18); BUN/CREATININE RATIO 26.3 (10-20); CALCIUM 8.7 mg/dl (8.5-10.1); CARBON DIOXIDE 23 mmol/L (21-32); CHLORIDE 97 mmol/L (98-107); CREATININE 0.81 mg/dl (0.60-1.20); GLUCOSE 86 mg/dl (70-99); POTASSIUM 3.9 mmol/L (3.5-5.1); SODIUM 128 mmol/L (136-145)
== END ==
LOC: C.LABCC 07:56
PROVIDERS: ATTEND Internal Medicine
DX: E87.1 Hypo-osmolality and hyponatremia (principal)

== ENCOUNTER → 2017-01-23 | Outpatient (CLI) | payer OTHER ==
[2017-01-23 08:27] LABS: BLOOD UREA NITROGEN 25 mg/dl (7-18); BUN/CREATININE RATIO 29.8 (10-20); CALCIUM 8.5 mg/dl (8.5-10.1); CARBON DIOXIDE 22 mmol/L (21-32); CHLORIDE 99 mmol/L (98-107); CREATININE 0.85 mg/dl (0.60-1.20); GLUCOSE 107 mg/dl (70-99); POTASSIUM 3.6 mmol/L (3.5-5.1); SODIUM 131 mmol/L (136-145)
== END | disposition home or self-care (01) ==
LOC: C.LABCC 07:48
PROVIDERS: ATTEND Internal Medicine
DX: E87.1 Hypo-osmolality and hyponatremia (principal)

== ENCOUNTER → 2017-02-07 | Outpatient (CLI) | payer OTHER ==
[~2017-02-07] MED LIST changes: +ACETAMINOPHEN 325 MG TAB ONE
--- NOTE | 2017-02-12 11:46 | POLYSOMNOGRAPH REPORT ---
PRIMARY AND REFERRING PHYSICIAN: Dr. Pack. CLINICAL DATA: The patient is a 76-year-old female, who has excessive daytime somnolence. She has had a recent episode of uncontrolled hypertension and she has diabetes. She was referred by Dr. Pack. On the evening of 02/07/2017, a home sleep apnea test was performed using the Elva type III monitor. RECORDING RESULTS: Total recording time was 10 hours. The patient's estimated sleep time and patient monitoring time was 8.5 hours. RESPIRATORY DATA: The patient had a total of 9 apneas including 6 obstructive apneas, 1 mixed apnea and 2 central apneas. There were 11 hypopneas. The SARAH was 2.3. This would reflect no significant sleep apnea. The longest respiratory event was 33 seconds. OXIMETRY DATA: The minimum saturation was 88%. The mean saturation was 95%. The estimated time below 89% was 0 minute. HEART RATE DATA: The minimum heart rate was 44 beats per minute and the maximum was 57 beats per minute. SNORING DATA: Snoring was present throughout the test. IMPRESSION: No evidence of significant obstructive sleep apnea or hypopnea on this home sleep apnea test. RECOMMENDATION: Further followup is deferred to Dr. Pack, her referring physician.
== END ==
LOC: C.NEUR 10:03
PROVIDERS: ATTEND Internal Medicine Pulmonary Disease
DX: G47.33 Obstructive sleep apnea (adult) (pediatric) (principal)

== ENCOUNTER → 2017-02-07 | Outpatient (CLI) | payer OTHER ==
[~2017-02-07] MED LIST changes: -ACETAMINOPHEN 325 MG TAB ONE
[2017-02-07 08:47] LABS: BLOOD UREA NITROGEN 23 mg/dl (7-18); CARBON DIOXIDE 24 mmol/L (21-32); CHLORIDE 103 mmol/L (98-107); CREATININE 0.88 mg/dl (0.60-1.20); GLUCOSE 91 mg/dl (70-99); POTASSIUM 3.9 mmol/L (3.5-5.1); SODIUM 136 mmol/L (136-145)
== END ==
LOC: C.LABCC 08:19
PROVIDERS: ATTEND Internal Medicine
DX: E87.1 Hypo-osmolality and hyponatremia (principal)

== ENCOUNTER → 2017-03-09 | Outpatient (CLI) | payer OTHER ==
[~2017-03-09] MED LIST changes: -CITA10TA4 PO; +HYDR25TA5 PO; +LVMI SC
[2017-03-09 08:41] LABS: BLOOD UREA NITROGEN 20 mg/dl (7-18); BUN/CREATININE RATIO 22.2 (10-20); CARBON DIOXIDE 24 mmol/L (21-32); CHLORIDE 104 mmol/L (98-107); GLUCOSE 156 mg/dl (70-99); POTASSIUM 3.8 mmol/L (3.5-5.1); SODIUM 135 mmol/L (136-145)
[2017-03-09 08:45] LABS: CALCIUM 8.6 mg/dl (8.5-10.1)
== END ==
LOC: C.LABCC 08:07
PROVIDERS: ATTEND Internal Medicine
DX: E87.1 Hypo-osmolality and hyponatremia (principal)

== ENCOUNTER → 2017-03-21 | Outpatient (CLI) | payer OTHER ==
[2017-03-21 09:33] LABS: ESTIMATED AVERAGE GLUCOSE 82 mg/dl; HA1C FLAG Normal (Normal)
== END ==
LOC: C.LABCC 07:52
PROVIDERS: ATTEND Internal Medicine
DX: E11.9 Type 2 diabetes mellitus without complications (principal)

== ENCOUNTER → 2017-05-22 | Outpatient (CLI) | payer OTHER ==
[~2017-05-22] MED LIST changes: -HYDR25TA5 PO; -LVMI SC
[2017-05-22 10:09] LABS: BASO % 0.7 %; BASO ABS # 0.03 K/uL (0-0.2); COMPLETE YES; EOS % 4.1 %; IG% 0.2 %; LYMPH % 35.4 %; LYMPH ABS # 1.57 K/uL (1.2-3.4); MEAN CELL VOLUME 90.4 fL (80-100); MEAN CORPUSCULAR HGB CONC 34.3 g/dl (32-36); MEAN PLATELET VOLUME 9.6 fL (7.4-10.4); MONO % 12.6 %; PLATELET COUNT 269 K/uL (130-400); RED BLOOD COUNT 3.32 M/uL (4.2-5.4); WHITE BLOOD COUNT 4.43 K/uL (4.8-10.8)
[2017-05-22 10:20] LABS: ALT/SGPT 37 U/L (12-78); AST/SGOT 25 U/L (15-37); BLOOD UREA NITROGEN 24 mg/dl (7-18); BUN/CREATININE RATIO 27.2 (10-20); CARBON DIOXIDE 23 mmol/L (21-32); CHLORIDE 107 mmol/L (98-107); CREATININE 0.88 mg/dl (0.60-1.20); GLUCOSE 131 mg/dl (70-99); POTASSIUM 4.2 mmol/L (3.5-5.1); SODIUM 139 mmol/L (136-145)
[2017-05-22 10:22] LABS: ALB/GLOB RATIO 0.8 (0.9-2); ALKALINE PHOSPHATASE 63 U/L (45-117)
[2017-05-22 12:19] LABS: CALCIUM 8.6 mg/dl (8.5-10.1)
--- NOTE | 2017-05-26 19:32 | CODING QUERY NO DIAGNOSIS ---
: 1940 TREATMENT RENDERED WITHOUT A DIAGNOSIS To promote full compliance with coding requirements relating to patient care, physician participation is requested in all cases of physician coder uncertainty. Please assist us with providing a diagnosis/symptom for the test(s) below: A diagnosis/symptom was not documented on your Order. A valid diagnosis/symptom is required to bill all insurances. Please remember that we are unable to code a diagnosis of rule out, probable, possible, questionable, or suspected. Tests that require a diagnosis: DOS: 05/22/17 * Comprehensive Metabolic Panel DIAGNOSIS: * Liver Profile DIAGNOSIS: * CBC with Auto Differential DIAGNOSIS: Provider Signature: Date: Thank you Kami Cespedes Health Information Management Once completed, please kindly fax back to [phone] For questions please call [phone]
== END ==
LOC: C.LABCC 07:48
PROVIDERS: ATTEND Internal Medicine
DX: D64.9 Anemia, unspecified (principal); I49.9 Cardiac arrhythmia, unspecified

== ENCOUNTER → 2017-05-31 | Outpatient (CLI) | payer OTHER ==
[2017-05-31 10:40] LABS: BLOOD UREA NITROGEN 26 mg/dl (7-18); BUN/CREATININE RATIO 26.2 (10-20); CALCIUM 8.4 mg/dl (8.5-10.1); CARBON DIOXIDE 21 mmol/L (21-32); CHLORIDE 109 mmol/L (98-107); GLUCOSE 87 mg/dl (70-99); POTASSIUM 3.8 mmol/L (3.5-5.1); SODIUM 138 mmol/L (136-145)
== END | disposition home or self-care (01) ==
LOC: C.LABCC 09:44
PROVIDERS: ATTEND Internal Medicine
DX: I10 Essential (primary) hypertension (principal); E87.1 Hypo-osmolality and hyponatremia; G61.81 Chronic inflammatory demyelinating polyneuritis; E78.1 Pure hyperglyceridemia; G47.33 Obstructive sleep apnea (adult) (pediatric)

== ENCOUNTER → 2017-06-06 | Outpatient (CLI) | payer OTHER ==
[2017-06-06 08:50] LABS: BASO % 0.7 %; BASO ABS # 0.03 K/uL (0-0.2); COMPLETE YES; EOS % 3.9 %; HEMATOCRIT 27.8 % (37-47); IG% 0.2 %; LYMPH % 36.1 %; LYMPH ABS # 1.56 K/uL (1.2-3.4); MEAN CELL VOLUME 86.9 fL (80-100); MEAN CORPUSCULAR HEMOGLOBIN 31.9 pg (25-34); MEAN CORPUSCULAR HGB CONC 36.7 g/dl (32-36); MEAN PLATELET VOLUME 9.6 fL (7.4-10.4); NEUT % 44.1 %; PLATELET COUNT 255 K/uL (130-400); WHITE BLOOD COUNT 4.32 K/uL (4.8-10.8)
== END ==
LOC: C.LABCC 08:17
PROVIDERS: ATTEND Internal Medicine
DX: D64.9 Anemia, unspecified (principal)

== ENCOUNTER → 2017-07-20 | Outpatient (CLI) | payer OTHER ==
[~2017-07-20] MED LIST changes: -ACET325T96 PO; -CTP1X PO
[2017-07-20 09:23] LABS: ESTIMATED AVERAGE GLUCOSE 88 mg/dl; HA1C FLAG Normal (Normal)
== END ==
LOC: C.LABCC 08:17
PROVIDERS: ATTEND Internal Medicine
DX: E11.9 Type 2 diabetes mellitus without complications (principal)

== ENCOUNTER → 2017-08-01 | Outpatient (CLI) | payer OTHER ==
[2017-08-01 18:24] LABS: URINE APPEARANCE CLEAR (CLEAR); URINE BILIRUBIN NEG (NEG); URINE COLOR YELLOW; URINE NITRITE NEG (NEG); UROBILINOGEN NEG (NEG); ZZUR CULT IF INDIC CLEAN CATCH NO
[2017-08-01 18:40] LABS: MANUAL MICROSCOPIC REQUIRED? NO; REVIEW REQ? NO
== END ==
LOC: C.LABCC 16:42
PROVIDERS: ATTEND Internal Medicine
DX: R41.82 Altered mental status, unspecified (principal)

== ENCOUNTER 2017-09-17 11:55 | Inpatient (IN) | payer OTHER ==
[~2017-09-17] VITALS: Ht 167.6 cm; Wt 84.1 kg
[2017-09-17] MEDS ORDERED: LVMI SC (13:54)
[2017-09-17 13:55] LABS: BASO % 0.7 %; BASO ABS # 0.04 K/uL (0-0.2); COMPLETE YES; EOS % 1.2 %; HEMATOCRIT 33.5 % (37-47); IG% 0.3 %; LYMPH % 25.6 %; LYMPH ABS # 1.47 K/uL (1.2-3.4); MEAN CORPUSCULAR HEMOGLOBIN 30.1 pg (25-34); MEAN CORPUSCULAR HGB CONC 34.6 g/dl (32-36); MEAN PLATELET VOLUME 9.2 fL (7.4-10.4); NEUT % 61.2 %; PLATELET COUNT 324 K/uL (130-400); RED BLOOD COUNT 3.85 M/uL (4.2-5.4); WHITE BLOOD COUNT 5.74 K/uL (4.8-10.8)
[2017-09-17 14:18] LABS: BLOOD UREA NITROGEN 21 mg/dl (7-18); BUN/CREATININE RATIO 22.9 (10-20); CALCIUM 9.1 mg/dl (8.5-10.1); CARBON DIOXIDE 23 mmol/L (21-32); CHLORIDE 104 mmol/L (98-107); GLUCOSE 155 mg/dl (70-99); POTASSIUM 3.8 mmol/L (3.5-5.1); SODIUM 136 mmol/L (136-145)
[2017-09-17] MEDS ORDERED: NiCARDipine IV 25 MG in SODIUM CHLORIDE 0.9% 250ML 240 ML IV STA (14:40)
[2017-09-17] MEDS ORDERED: CLONIDINE HCL 0.3 MG TAB PO ONE (17:13)
[2017-09-17] MEDS ORDERED: MAGNESIUM HYDROXIDE SUSP 30 ML UDC PO PRN (17:15)
[2017-09-17] MEDS ORDERED: ONDANSETRON INJ 2 MG/ML 2 ML VIAL IV PRN (17:15)
[2017-09-17] MEDS ORDERED: ACETAMINOPHEN 325 MG TAB PO PRN ×2 (17:15)
--- NOTE | 2017-09-17 17:17 | History and Physical ---
History & Physical Date & Time of Service: Sep 17, 2017 at 17:09 Chief Complaint: High Blood Pressure Primary Care Physician: Pippa Sheehan History of Present Illness Source: patient 76 y/o F who was brought down to the ED from the [facility] after her BP became markedly elevated during her IvIg infusion. Pt states she feels quite well and has had no new health concerns recently. She denies headache or vision issues, no confusion or dizziness/lightheadedness. She has been able to do her daily activities without issue. No issue with PO intake. She came in today for her routine infusion which she has q30 days under the direction of Dr. Frias. She has been doing this for years, although she is uncertain of her actual dx that necessitates this. Pt denies fever, SOB, chest pain, abd pain, n/v/c/d, LE pain or swelling. 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 (2) Diab Felisha Wo Comp Type I Not Uncontrolled Status: Chronic (3) Hypertension Nos Status: Chronic Surgical Problems: (1) History of cholecystectomy Status: Resolved (2) History of tonsillectomy Status: Resolved Family History Father from leukemia Social History Smoking Status: Never Smoker Alcohol Use: none Drug Use: none Marital Status: Occupational Status: retired Multi-Drug Resistant Organisms History of MDRO: No Allergies Coded Allergies: Mycophenolate (Verified Allergy, Unknown, unknown, 08/20/17) info from [place] [facility] Nortriptyline (Verified Allergy, Unknown, unknown, 08/20/17) info from [facility] Gabapentin (Verified Adverse Reaction, Intermediate, DOUBLE VISION, NAUSEA , VOMITING, 08/20/17) Home Medications Scheduled Acetaminophen (Tylenol), 650 MG PO DIRECTED Amlodipine Besylate (Norvasc), 10 MG PO DAILY Aspirin (Aspirin Chewable), 81 MG PO DAILY Bisacodyl (Dulcolax), 10 MG PO DIRECTED Clonidine Hcl (Catapres), 0.3 MG PO BID Clonidine Hcl (Catapres), 0.1 MG PO DIRECTED Hydralazine Hcl (Apresoline), 50 MG PO TID Insulin Detemir (Levemir), 10 UNITS SQ PM Insulin Detemir (Levemir), 15 UNITS SC QAM Insulin Lispro (Human) (Humalog), 10 UNITS SC BID Irbesartan (Irbesartan), 300 MG PO DAILY Mirtazapine Soltab (Remeron Soltab), 7.5 MG PO DAILY Review of Systems Pertinent positives and negatives reviewed in HPI--all others negative Physical Exam Vital Signs Date Time Temp Pulse Resp B/P (MAP) Pulse Ox O2 Delivery O2 Flow Rate FiO2 09/17/17 16:50 214/117 09/17/17 16:31 211/97 09/17/17 16:25 78 16 09/17/17 16:16 200/93 09/17/17 16:10 76 19 09/17/17 16:01 227/104 09/17/17 15:46 219/85 09/17/17 15:40 83 16 09/17/17 15:31 216/87 09/17/17 15:25 88 17 09/17/17 15:16 221/83 09/17/17 15:11 79 09/17/17 15:10 70 18 09/17/17 15:01 233/94 09/17/17 14:33 251/88 09/17/17 13:46 83 20 253/104 94 Room Air 09/17/17 12:14 36.9 85 20 206/82 99 Room Air General Appearance: WD/WN, no apparent distress Head: normocephalic, atraumatic Eyes: normal inspection, EOMI ENT: hearing grossly normal Neck: supple Respiratory/Chest: normal breath sounds, no respiratory distress Cardiovascular: regular rate, rhythm, no edema Abdomen/GI: non tender, soft Extremities/Musculoskelatal: no calf tenderness, no pedal edema Neurologic/Psych: alert, normal mood/affect, oriented x 3 Skin: normal color, warm/dry Diagnostics Laboratory Results Results Past 24 Hours Test 09/17/17 13:40 Range/Units White Blood Count 5.74 4.8-10.8 K/uL Red Blood Count 3.85 4.2-5.4 M/uL Hemoglobin 11.6 12.0-16.0 g/dL Hematocrit 33.5 37-47 % Mean Corpuscular Volume 87.0 80-100 fL Mean Corpuscular Hemoglobin 30.1 25-34 pg Mean Corpuscular Hemoglobin Concent 34.6 32-36 g/dl Platelet Count 324 130-400 K/uL Mean Platelet Volume 9.2 7.4-10.4 fL Neutrophils (%) (Auto) 61.2 % Lymphocytes (%) (Auto) 25.6 % Monocytes (%) (Auto) 11.0 % Eosinophils (%) (Auto) 1.2 % Basophils (%) (Auto) 0.7 % Neutrophils # (Auto) 3.51 1.4-6.5 K/uL Lymphocytes # (Auto) 1.47 1.2-3.4 K/uL Monocytes # (Auto) 0.63 0.11-0.59 K/uL Eosinophils # (Auto) 0.07 0-0.5 K/uL Basophils # (Auto) 0.04 0-0.2 K/uL RDW Standard Deviation 44.4 36.4-46.3 fL RDW Coefficient of Variation 14.0 11.5-14.5 % Immature Granulocyte % (Auto) 0.3 % Immature Granulocyte # (Auto) 0.02 0.00-0.02 K/uL Sodium Level 136 136-145 mmol/L Potassium Level 3.8 3.5-5.1 mmol/L Chloride Level 104 98-107 mmol/L Carbon Dioxide Level 23 21-32 mmol/L Anion Gap 9.0 3-11 mmol/L Blood Urea Nitrogen 21 7-18 mg/dl Creatinine 0.90 0.60-1.20 mg/dl Estimated GFR () 71.5 Estimated GFR (Non- 61.7 BUN/Creatinine Ratio 22.9 10-20 Random Glucose 155 70-99 mg/dl Calcium Level 9.1 8.5-10.1 mg/dl Impression Assessment and Plan 76 y/o F who was admitted on 09/17 for HTN emergency. HTN emergency: Possibly related to IVIg this AM Pt takes gamunex which can cause HTN variability Given hydralazine in the ED, which is not her usual home medication Will give catapres, which pt takes BID + PRN and monitor off of cardizem drip Continue norvasc Monitor DM: continue home meds HTN: as above CIDP: pt did not finish her monthly IVIg infusion, this will need addressed once BP is stable Other: Full code SCDs for DVT proph DM diet CM: Pt will return to [facility] on d/c Level of Care Telemetry Resuscitation Status FULL RESUSCITATION VTE Prophylaxis VTE Risk Assessment Done? Y/N: Yes Risk Level: Low
--- NOTE | 2017-09-17 17:42 | EMERGENCY ROOM VISIT NOTE ---
History Report prepared by Adiel: Osvaldo Mock Under the Supervision of: Dr. Moy Maloney D.O. First contact with patient: 13:15 Chief Complaint: HYPERTENSION Stated Complaint: HIGH BLOOD PRESSURE History of Present Illness The patient is a 76 year old female who presents to the Emergency Room with complaints of constant hypertension beginning today. She presented to the hospital to get an infusion of IVIG when she was found to be hypertensive. She states that she receives IVIG infusions once per month, but is unsure why she gets them. The patient states that she has been getting infusions for a long time. She was found to have a blood pressure of around 200/80 today. Pt denies headache, change in vision, fevers, chest pain, shortness of breath, nausea, vomiting, diarrhea, pain with urination, and melena. Source of History: patient Onset: Today Symptom Intensity: 200/80 Quality: other (hypertension) Timing: constant Associated Symptoms: No fevers, No chest pain, No SOB, No nausea, No vomiting, No abdominal pain, No melena, No hematochezia, No urinary symptoms Review of Systems See HPI for pertinent positives & negatives. A total of 10 systems reviewed and were otherwise negative. Past Medical & Surgical Medical Problems: (1) CIDP (chronic inflammatory demyelinating polyneuropathy) (2) Diab Felisha Wo Comp Type I Not Uncontrolled (3) Hypertension Nos (4) Hypertensive emergency Surgical Problems: (1) History of cholecystectomy (2) History of tonsillectomy Family History No pertinent family history stated. Social History Smoking Status: Never Smoker Alcohol Use: none Drug Use: none Marital Status: Housing Status: correction Occupation Status: retired Current/Historical Medications Scheduled Acetaminophen (Tylenol), 650 MG PO DIRECTED Amlodipine Besylate (Norvasc), 10 MG PO DAILY Aspirin (Aspirin Chewable), 81 MG PO DAILY Bisacodyl (Dulcolax), 10 MG PO DIRECTED Clonidine Hcl (Catapres), 0.3 MG PO BID Clonidine Hcl (Catapres), 0.1 MG PO DIRECTED Hydralazine Hcl (Apresoline), 50 MG PO TID Insulin Detemir (Levemir), 10 UNITS SQ PM Insulin Detemir (Levemir), 15 UNITS SC QAM Insulin Lispro (Human) (Humalog), 10 UNITS SC BID Irbesartan (Irbesartan), 300 MG PO DAILY Mirtazapine Soltab (Remeron Soltab), 7.5 MG PO DAILY Allergies Coded Allergies: Mycophenolate (Verified Allergy, Unknown, unknown, 08/20/17) info from [place] Nortriptyline (Verified Allergy, Unknown, unknown, 08/20/17) info from [facility] Gabapentin (Verified Adverse Reaction, Intermediate, DOUBLE VISION, NAUSEA , VOMITING, 08/20/17) Physical Exam Vital Signs Date Time Temp Pulse Resp B/P (MAP) Pulse Ox O2 Delivery O2 Flow Rate FiO2 09/17/17 17:15 207/88 09/17/17 16:50 214/117 09/17/17 16:31 211/97 09/17/17 16:25 78 16 09/17/17 16:16 200/93 09/17/17 16:10 76 19 09/17/17 16:01 227/104 09/17/17 15:46 219/85 09/17/17 15:40 83 16 09/17/17 15:31 216/87 09/17/17 15:25 88 17 09/17/17 15:16 221/83 09/17/17 15:11 79 09/17/17 15:10 70 18 09/17/17 15:01 233/94 09/17/17 14:33 251/88 09/17/17 13:46 83 20 253/104 94 Room Air 09/17/17 12:14 36.9 85 20 206/82 99 Room Air Physical Exam GENERAL: Sitting up in bed, alert, well appearing, well nourished, no distress, non-toxic EYE EXAM: normal conjunctiva. PERRL and EOM's grossly intact. OROPHARYNX: no exudate, no erythema, lips, buccal mucosa, and tongue normal and mucous membranes are moist NECK: supple, no nuchal rigidity, no adenopathy, non-tender LUNGS: Clear to auscultation. Normal chest wall mechanics HEART: no murmurs, S1 normal and S2 normal ABDOMEN: abdomen soft, non-tender, normo-active bowel sounds, no masses, no rebound or guarding. BACK: Back is symmetrical on inspection and there is no deformity, no midline tenderness, no CVA tenderness. SKIN: no rashes and no bruising UPPER EXTREMITIES: upper extremities are grossly normal. LOWER EXTREMITIES: No pitting edema. NEURO EXAM: Oriented to person and place. Following commands. Appears to have dementia. Cranial nerves II-XII intact, normal speech, no weakness of arms, no weakness of legs. Medical Decision & Procedures Laboratory Results 09/17/17 13:40 Red Blood Count 3.85, Mean Corpuscular Volume 87.0, Mean Corpuscular Hemoglobin 30.1, Mean Corpuscular Hemoglobin Concent 34.6, Mean Platelet Volume 9.2, Neutrophils (%) (Auto) 61.2, Lymphocytes (%) (Auto) 25.6, Monocytes (%) (Auto) 11.0, Eosinophils (%) (Auto) 1.2, Basophils (%) (Auto) 0.7, Neutrophils # (Auto ) 3.51, Lymphocytes # (Auto) 1.47, Monocytes # (Auto) 0.63, Eosinophils # (Auto ) 0.07, Basophils # (Auto) 0.04 09/17/17 13:40 Test 09/17/17 13:40 White Blood Count 5.74 K/uL (4.8-10.8) Red Blood Count 3.85 M/uL (4.2-5.4) Hemoglobin 11.6 g/dL (12.0-16.0) Hematocrit 33.5 % (37-47) Mean Corpuscular Volume 87.0 fL (80-100) Mean Corpuscular Hemoglobin 30.1 pg (25-34) Mean Corpuscular Hemoglobin Concent 34.6 g/dl (32-36) Platelet Count 324 K/uL (130-400) Mean Platelet Volume 9.2 fL (7.4-10.4) Neutrophils (%) (Auto) 61.2 % Lymphocytes (%) (Auto) 25.6 % Monocytes (%) (Auto) 11.0 % Eosinophils (%) (Auto) 1.2 % Basophils (%) (Auto) 0.7 % Neutrophils # (Auto) 3.51 K/uL (1.4-6.5) Lymphocytes # (Auto) 1.47 K/uL (1.2-3.4) Monocytes # (Auto) 0.63 K/uL (0.11-0.59) Eosinophils # (Auto) 0.07 K/uL (0-0.5) Basophils # (Auto) 0.04 K/uL (0-0.2) RDW Standard Deviation 44.4 fL (36.4-46.3) RDW Coefficient of Variation 14.0 % (11.5-14.5) Immature Granulocyte % (Auto) 0.3 % Immature Granulocyte # (Auto) 0.02 K/uL (0.00-0.02) Anion Gap 9.0 mmol/L (3-11) Estimated GFR () 71.5 Estimated GFR (Non- 61.7 BUN/Creatinine Ratio 22.9 (10-20) Calcium Level 9.1 mg/dl (8.5-10.1) Laboratory results per my review. Medications Administered Medications (Trade) Dose Ordered Sig/Mila Route Start Time Stop Time Status Last Admin Dose Admin Hydralazine HCl (Apresoline Tab) 50 mg NOW STAT PO 09/17/17 13:30 09/17/17 13:32 DC 09/17/17 13:51 50 MG Nicardipine HCl 25 mg/Sodium Chloride 250 ml @ 0 mls/hr Q0M STAT IV 09/17/17 14:40 09/17/17 14:43 DC 09/17/17 15:07 2.5 MLS/HR ECG Indication: other (HTN) Rate (beats per minute): 77 Rhythm: sinus rhythm Findings: other (LAD. Non-specific ST changes in the hilateral leads. ) ED Course ED COURSE: Vital signs were reviewed and showed hypertension The patients medical record was reviewed The above diagnostic studies were performed and reviewed. ED treatments and interventions as stated above. 1319: The patient was evaluated in room C2B. A complete history and physical examination was performed. 1330: Ordered Apresoline Tab 50 mg PO. 1440: Ordered Nicardipine HCl 25 mg/Sodium Chloride 250 mL. 1435: The patient's repeat blood pressure was 250 systolically. 1615: Upon reevaluation, the patient is resting comfortably. I discussed my findings with the patient and she understands and agrees with the treatment plan. Based on the patients age, coexisting illnesses, exam and lab findings the decision to treat as an inpatient was made. The patient remained stable while under my care. The patient will be evaluated for further management. Medical Decision Differential Diagnosis includes but is not limited to dehydration, stroke, anemia, hypoglycemia, hyponatremia, hypernatremia, urinary tract infection, pneumonia, bronchitis, sepsis, gastroenteritis, additional abdominal pathology, metabolic abnormalities and infections. Patient is a 76-year-old female who presents to ER referred in from the clinic as she was receiving an IVIG infusion and was midway through became extremely hypertensive. Discussed with Dr. Frias. CBC all BMP is unremarkable. Patient has no complains. EKG was nondiagnostic. She was initially given home medications orally. Systolic blood pressures trended up from 210-260. She is placed on a Cardene drip and this was titrated up for systolics from 190-200. Patient was monitored closely. She is admitted to internal medicine for hypertensive emergency likely secondary to IVIG infusion. Medication Reconcilliation Current Medication List: was personally reviewed by me Blood Pressure Screening Patient's blood pressure: Elevated blood pressure Blood pressure disposition: Referred to PCP Consults Time Called: 161 Consulting Physician: Dr. Fuller -YUNIER Returned Call: [phone] I reviewed the patient's case with Dr. Fuller. YUNIER will evaluate the patient for further management. Impression Primary Impression: Hypertensive emergency Additional Impression: Chronic inflammatory demyelinating polyneuropathy Critical Care I have personally spent 35 minutes of critical care time in the direct management of this patient. This includes bedside care, interpretation of diagnostic studies, and testing, discussion with consultants, patient, and family members, and other required patient management activities. This 35 minutes is in excess of all separately billable procedures. Scribe Attestation The scribe's documentation has been prepared under my direction and personally reviewed by me in its entirety. I confirm that the note above accurately reflects all work, treatment, procedures, and medical decision making performed by me. Departure Information Dispostion Being Evaluated By Hospitalist Referrals [facility] (PCP) Patient Instructions My [facility] Problem Qualifiers
[2017-09-17] MEDS: CLONIDINE HCL 0.3 MG TAB PO SCH (17:47)
[2017-09-17] MEDS ORDERED: GLUCOSE 40% GEL 15 GM TUBE PO PRN (18:30)
[2017-09-17] MEDS ORDERED: GLUCOSE 10 TABS/TUBE PO PRN (18:30)
[2017-09-17] MEDS ORDERED: GLUCAGON FOR INJ 1 MG VIAL SQ PRN (18:30)
[2017-09-17] MEDS ORDERED: DEXTROSE 50% 50 ML SYR IV PRN (18:30)
[2017-09-17 18:56] VITALS: BP 195/122; PULSE 91; TEMP 36.8; O2SAT 94
[2017-09-17 19:15] VITALS: BP 186/112; PULSE 91; TEMP 36.8; O2SAT 94; Ht 167.6 cm; Wt 84.1 kg
[2017-09-17] MEDS: CLONIDINE HCL 0.1 MG TAB PO PRN (19:19)
[2017-09-17] MEDS ORDERED: IV FLUIDS COMPLETED PRN (20:30)
[2017-09-17 20:37] VITALS: BP 140/69; PULSE 72; O2SAT 97
[2017-09-17] MEDS: INSULIN ASPART 100 UNITS/ML 3 ML PEN SC SCH (22:52)
[2017-09-17] MEDS: INSULIN DETEMIR FLEXPEN/FLEX TOUCH 100 UNITS/ML 3ML SQ SCH (22:53)
[2017-09-17 23:11] VITALS: BP 164/76; PULSE 70; TEMP 36.4; O2SAT 98
[2017-09-18] VITALS (12 sets, daily range): BP systolic 136–202; BP diastolic 58–100; PULSE 63–83; TEMP 36.5–37; O2SAT 97–99
[2017-09-18] MEDS: ASPIRIN 81 MG CHEW PO SCH (07:31)
[2017-09-18] MEDS: IRBESARTAN 150 MG TAB PO SCH (07:31)
[2017-09-18] MEDS: CLONIDINE HCL 0.3 MG TAB PO SCH ×2 (07:32→21:14)
[2017-09-18] MEDS: AMLODIPINE BESYLATE 5 MG TAB PO SCH (07:33)
[2017-09-18] MEDS: MIRTAZAPINE SOLTAB 15 MG PO SCH (07:34)
[2017-09-18] MEDS: INSULIN DETEMIR FLEXPEN/FLEX TOUCH 100 UNITS/ML 3ML SC SCH (07:37)
[2017-09-18] MEDS: INSULIN ASPART 100 UNITS/ML 3 ML PEN SC SCH ×2 (07:38→21:00)
[2017-09-18] MEDS: BISACODYL 5 MG TABEC PO SCH (07:38)
[2017-09-18 09:48] LABS: CREATININE 0.9 mg/dl (0.60-1.20)
[2017-09-18 09:49] LABS: BUN/CREATININE RATIO 22.4 (10-20); CALCIUM 8.4 mg/dl (8.5-10.1); POTASSIUM 3.8 mmol/L (3.5-5.1)
--- NOTE | 2017-09-18 13:45 | Medical Student: [facility] ---
Med Student Progress Note Date of Service Sep 18, 2017. Subjective Pt evaluation today including: conversation w/ patient, physical exam Pain: None Voiding: no voiding problems Ms. Rodriguez is a 76-year-old female with a history of HTN, DM, and chronic inflammatory demyelinating polyneuropathy who is hospitalized for hypertensive urgency. While undergoing her IVIg infusion yesterday, she says she was found to be hypertensive. She denies having any symptoms at that time, but her memory of it is "fuzzy." Currently, she says she feels good which makes her wonder " why I'm here." She denies vision changes, headache, limb weakness/numbness/ tingling, chest pain, and SOB. Review of Systems Constitutional: No fever, No chills Eyes: No worsening of vision ENT: No hearing loss, No sore throat, No tinnitus Respiratory: No cough, No wheezing, No shortness of breath Cardiac: No chest pain, No palpitations Abdomen: No pain, No nausea, No vomiting, No diarrhea, No constipation Musculoskeletal: No muscle pain, No calf pain Female : No dysuria, No urinary frequency Neurologic: No weakness, No numbness/tingling Heme: No abnormal bleeding/bruising Skin: No rash Objective Vital Signs Date Time Temp Pulse Resp B/P (MAP) Pulse Ox O2 Delivery O2 Flow Rate FiO2 09/18/17 12:00 98 Room Air 09/18/17 11:43 36.7 79 16 150/58 (88) 98 Room Air 156/79 (104) 136/81 (99) 09/18/17 09:02 63 136/59 (84) 09/18/17 08:00 98 Room Air 09/18/17 07:27 37.0 83 16 202/100 (134) 98 Room Air 09/18/17 04:00 Room Air 09/18/17 03:51 36.8 64 18 172/64 (100) 97 Room Air 09/18/17 00:00 Room Air 09/17/17 23:11 36.4 70 17 164/76 (105) 98 Room Air 09/17/17 20:37 72 20 140/69 (92) 97 Room Air 09/17/17 19:15 36.8 91 16 186/112 94 Room Air 09/17/17 18:56 36.8 91 14 195/122 (146) 94 Room Air 09/17/17 18:01 197/96 09/17/17 17:51 75 16 09/17/17 17:46 204/88 09/17/17 17:36 80 17 09/17/17 17:31 205/88 09/17/17 17:21 78 17 09/17/17 17:16 203/89 09/17/17 17:15 207/09/17/17 17:06 80 18 09/17/17 17:01 /09/17/17 16:51 93 22 09/17/17 16:50 214/117 09/17/17 16:49 214/117 09/17/17 16:46 232/122 09/17/17 16:36 82 20 09/17/17 16:31 211/97 09/17/17 16:25 78 16 09/17/17 16:16 200/93 09/17/17 16:10 76 19 09/17/17 16:01 227/104 09/17/17 15:46 219/85 09/17/17 15:40 83 16 09/17/17 15:31 216/87 09/17/17 15:25 88 17 09/17/17 15:16 221/83 09/17/17 15:11 79 09/17/17 15:10 70 18 09/17/17 15:01 233/94 09/17/17 14:33 251/88 09/17/17 13:46 83 20 253/104 94 Room Air Physical Exam General Appearance: no apparent distress (Pleasant woman) Eyes: bilateral eyes PERRL, bilateral eyes EOMI ENT: pharynx normal Neck: supple, no adenopathy, thyroid normal, no carotid bruits Respiratory/Chest: lungs clear, normal breath sounds, no respiratory distress Cardiovascular: regular rate, rhythm, no edema, no gallop, + systolic murmur ( no radiation to carotids) Abdomen: normal bowel sounds, non tender Extremities: no pedal edema, + pertinent finding (clubbing of fingers) Neurologic/Psychiatric: alert, normal mood/affect (CN 3, 4,5,6,7,9 intact) Laboratory Results Last 24 Hours Test 09/17/17 13:40 09/18/17 06:32 09/18/17 08:48 09/18/17 11:35 White Blood Count 5.74 K/uL Red Blood Count 3.85 M/uL Hemoglobin 11.6 g/dL Hematocrit 33.5 % Mean Corpuscular Volume 87.0 fL Mean Corpuscular Hemoglobin 30.1 pg Mean Corpuscular Hemoglobin Concent 34.6 g/dl Platelet Count 324 K/uL Mean Platelet Volume 9.2 fL Neutrophils (%) (Auto) 61.2 % Lymphocytes (%) (Auto) 25.6 % Monocytes (%) (Auto) 11.0 % Eosinophils (%) (Auto) 1.2 % Basophils (%) (Auto) 0.7 % Neutrophils # (Auto) 3.51 K/uL Lymphocytes # (Auto) 1.47 K/uL Monocytes # (Auto) 0.63 K/uL Eosinophils # (Auto) 0.07 K/uL Basophils # (Auto) 0.04 K/uL RDW Standard Deviation 44.4 fL RDW Coefficient of Variation 14.0 % Immature Granulocyte % (Auto) 0.3 % Immature Granulocyte # (Auto) 0.02 K/uL Sodium Level 136 mmol/L 138 mmol/L Potassium Level 3.8 mmol/L 3.8 mmol/L Chloride Level 104 mmol/L 106 mmol/L Carbon Dioxide Level 23 mmol/L 24 mmol/L Anion Gap 9.0 mmol/L 8.0 mmol/L Blood Urea Nitrogen 21 mg/dl 20 mg/dl Creatinine 0.90 mg/dl 0.90 mg/dl Estimated GFR () 71.5 71.5 Estimated GFR (Non- 61.7 61.7 BUN/Creatinine Ratio 22.9 22.4 Random Glucose 155 mg/dl 184 mg/dl Calcium Level 9.1 mg/dl 8.4 mg/dl Bedside Glucose 121 mg/dl 90 mg/dl Est Creatinine Clear Calc Drug Dose 50.7 ml/min Medications Current Inpatient Medications Medications (Trade) Dose Ordered Sig/Mila Route Start Time Stop Time Status Last Admin Dose Admin Acetaminophen (Tylenol Tab) 650 mg Q4H PRN PO 09/17/17 17:15 10/17/17 17:14 Magnesium Hydroxide (Milk Of Magnesia Susp) 30 ml Q12H PRN PO 09/17/17 17:15 10/17/17 17:14 Ondansetron HCl (Zofran Inj) 4 mg Q6H PRN IV 09/17/17 17:15 10/17/17 17:14 Amlodipine Besylate (Norvasc Tab) 10 mg DAILY PO 09/18/17 09:00 10/18/17 08:59 09/18/17 07:33 10 MG Aspirin (Aspirin Chew) 81 mg DAILY PO 09/18/17 09:00 10/18/17 08:59 09/18/17 07:31 81 MG Bisacodyl (Dulcolax Tab) 10 mg DAILY PO 09/18/17 09:00 10/18/17 08:59 Clonidine HCl (Catapres Tab) 0.1 mg Q6H PRN PO 09/17/17 17:15 10/17/17 17:14 09/17/17 19:19 0.1 MG Clonidine HCl (Catapres Tab) 0.3 mg BID PO 09/17/17 21:00 10/17/17 20:59 09/18/17 07:32 0.3 MG Hydralazine HCl (Apresoline Tab) 50 mg TID PO 09/17/17 21:00 10/17/17 20:59 09/18/17 07:30 50 MG Insulin Aspart (novoLOG ASPART) 10 units BID SC 09/17/17 21:00 10/17/17 20:59 09/18/17 07:38 10 UNITS Insulin Detemir (Levemir Flexpen/ FlexTouch) 10 units PM SQ 09/17/17 21:00 10/17/17 20:59 09/17/17 22:53 10 UNITS Insulin Detemir (Levemir Flexpen/ FlexTouch) 15 units QAM SC 09/18/17 09:00 10/18/17 08:59 09/18/17 07:37 15 UNITS Irbesartan (Avapro Tab) 300 mg DAILY PO 09/18/17 09:00 10/18/17 08:59 09/18/17 07:31 300 MG Mirtazapine (Remeron Solutab) 7.5 mg DAILY PO 09/18/17 09:00 10/18/17 08:59 09/18/17 07:34 7.5 MG Glucose (Glucose 40% Gel) 15-30 GRAMS 15 GRAMS... UD PRN PO 09/17/17 18:30 10/17/17 18:29 Glucose (Glucose Chew Tab) 4-8 Tablets 4 Tabl... UD PRN PO 09/17/17 18:30 10/17/17 18:29 Dextrose (Dextrose 50% 50ML Syringe) 25-50ML OF 50% DW IV FOR... UD PRN IV 09/17/17 18:30 10/17/17 18:29 Glucagon (Glucagon Inj) 1 mg UD PRN SQ 09/17/17 18:30 10/17/17 18:29 Miscellaneous (Iv Fluids Completed) 1 ea PRN PRN N/A 09/17/17 20:30 09/17/18 20:29 Heparin Sodium (Porcine) (Heparin 100 Unit/ml 5ml Flush) 5 ml PRN PRN IV 09/18/17 00:45 10/18/17 00:44 Immune Globulin 10 gm/Empty Bag 100 ml @ 0 mls/hr TODAY@1600 IV 09/18/17 16:00 09/18/17 16:01 Acetaminophen (Tylenol Tab) 1,000 mg TODAY@1530 PO 09/18/17 15:30 09/18/17 23:59 Diphenhydramine HCl (Benadryl Cap) 25 mg TODAY@1530 PO 09/18/17 15:30 09/18/17 23:59 Immune Globulin 20 gm/Empty Bag 200 ml @ 0 mls/hr TODAY@1700,1800 IV 09/18/17 17:00 09/18/17 23:59 Assessment and Plan Assessment and Plan: Ms. Rodriguez is a 76-year-old female with a history of HTN, DM, and chronic inflammatory demyelinating polyneuropathy who is hospitalized for hypertensive urgency. 1. Hypertension Pressure has improved since yesterday. Causes of secondary hypertension to be explored: -Sleep study from earlier this year revealed no apnea. -Renal artery ultrasound revealed no stenosis. -Renin and aldosterone levels ordered to investigate hyperaldosteronism. Patient is poorly controlled on current outpatient regimen, likely adherent due to living in [facility]. We will taper hydralazine, introduce HCTZ. 2. DM Continue with current regimen 3. CVID Remaining infusion of IVIg given. Will follow with neurology.
[2017-09-18] MEDS ORDERED: ACETAMINOPHEN 500 MG TAB PO SCH (15:30)
--- NOTE | 2017-09-18 21:49 | Progress Note ---
Subjective Date of Service: Sep 18, 2017. Subjective Pt evaluation today including: conversation w/ patient, physical exam, chart review, lab review, review of studies (renal artery doppler - 12/2016 - normal ) , review of inpatient medication list Pain: denies PO Intake: normal Voiding: no voiding problems tele overnight - ONLY WITH SLEEPING - sinus mars with what appears to be marked sinus arrhythmia no high-grade AV block patient feels well and denies any complaints asks when she will leave the hospital she appears to have memory issues as she can't tell me why she is on IVIG infusions Problem List Medical Problems: (1) Chronic inflammatory demyelinating polyneuropathy Status: Acute (2) Elevated troponin Status: Acute (3) Hypertension Nos Status: Chronic (4) Hypertensive urgency Status: Acute Review of Systems Constitutional: No fever, No chills Respiratory: No cough, No sputum, No shortness of breath, No dyspnea on exertion Cardiac: No chest pain, No orthopnea, No PND, No edema Abdomen: No pain Objective Vital Signs Date Time Temp Pulse Resp B/P (MAP) Pulse Ox O2 Delivery O2 Flow Rate FiO2 09/18/17 20:00 98 Room Air 09/18/17 19:58 36.7 73 16 189/93 (125) 99 Room Air 09/18/17 16:37 36.5 69 18 137/59 (85) 98 Room Air 09/18/17 16:00 98 Room Air 09/18/17 14:01 151/76 (101) 09/18/17 12:00 98 Room Air 09/18/17 11:43 36.7 79 16 150/58 (88) 98 Room Air 156/79 (104) 136/81 (99) 09/18/17 09:02 63 136/59 (84) 09/18/17 08:00 98 Room Air 09/18/17 07:27 37.0 83 16 202/100 (134) 98 Room Air 09/18/17 04:00 Room Air 09/18/17 03:51 36.8 64 18 172/64 (100) 97 Room Air 09/18/17 00:00 Room Air 09/17/17 23:11 36.4 70 17 164/76 (105) 98 Room Air Physical Exam General Appearance: no apparent distress ENT: pharynx normal Neck: no JVD Respiratory/Chest: lungs clear, no respiratory distress, no accessory muscle use Cardiovascular: regular rate, rhythm, no gallop Abdomen: normal bowel sounds, non tender, soft, no organomegaly Extremities: no pedal edema Neurologic/Psychiatric: alert Skin: + pertinent finding (fingernail clubbing present ) Laboratory Results Last 24 Hours Test 09/18/17 06:32 09/18/17 08:48 09/18/17 11:35 09/18/17 16:23 Bedside Glucose 121 mg/dl 90 mg/dl 149 mg/dl Sodium Level 138 mmol/L Potassium Level 3.8 mmol/L Chloride Level 106 mmol/L Carbon Dioxide Level 24 mmol/L Anion Gap 8.0 mmol/L Blood Urea Nitrogen 20 mg/dl Creatinine 0.90 mg/dl Est Creatinine Clear Calc Drug Dose 50.7 ml/min Estimated GFR () 71.5 Estimated GFR (Non- 61.7 BUN/Creatinine Ratio 22.4 Random Glucose 184 mg/dl Calcium Level 8.4 mg/dl Test 09/18/17 20:33 Bedside Glucose 195 mg/dl Assessment and Plan 76yo female: 1. hypertensive urgency - improved with simply reinstituting home medications. I am unaware that IVIG can raise blood pressure; it is more common for it to cause hypotension, fever, chills, etc. Either way her BPs are stable. She is on a 4-drug regimen with high-doses of clonidine, norvasc, ARB, and hydralazine. TSH in the past was normal. Renal artery doppler 12/2016 was normal. Sleep study from 01/2017 was normal. Never has had renin/lois levels -- these were sent today. Could consider CTA of the renal arteries just to be complete as there are occasional false negatives with doppler studies. For improved BP control would suggest tapering off hydralazine and adding low- dose HCTZ 12.5mg daily. If she has hyperaldosteronism then would substitute aldactone for HCTZ. Continue to follow. 2. CIDP (chronic inflammatory demyelinating polyneuropathy) - she is quite stable today from a cardiopulmonary standpoint. Her typical dose is 60 grams every 30 days. I spoke with pharmacy and it appears she received about 10 gms of IVIG yesterday before they aborted the infusion and sent her to the ER. Will give the remaining 50 gms today with tylenol/benedryl prior. 3. marked sinus bradycardia and suspected sinus arrhythmia - this only occurs with sleep suggesting increased vagal tone with sleep. I would have thought she had sleep disordered breathing/BEVERLEY but her sleep study in January 2017 was normal. Could consider discussing her tele strips with cardiology to be on safe side but I don't believe there is anything to do at this time. While awake her HRs rise appropriately. Avoid beta esa due to the significant bradycardia w/ sleep. 4. T2DM - control adequate at this time with levemir/novolog. 5. DVT proph - add heparin 5000 units TID. 6. ?underlying mild cognitive impairment/early dementia - would need to investigate outpatient records and speak with [facility] dispo - [facility], hopefully tomorrow if BPs are stable Continued [facility] stay due to: other (IVIG, BPs) Discharge planning: residential facility
[2017-09-18] MEDS: INSULIN DETEMIR FLEXPEN/FLEX TOUCH 100 UNITS/ML 3ML SQ SCH (22:25)
[2017-09-18 22:42] LABS: HEMATOCRIT 31.2 % (37-47); MEAN CELL VOLUME 87.4 fL (80-100); MEAN CORPUSCULAR HEMOGLOBIN 30.3 pg (25-34); MEAN CORPUSCULAR HGB CONC 34.6 g/dl (32-36); MEAN PLATELET VOLUME 9.1 fL (7.4-10.4); PLATELET COUNT 320 K/uL (130-400); RED BLOOD COUNT 3.57 M/uL (4.2-5.4); WHITE BLOOD COUNT 5.65 K/uL (4.8-10.8)
[2017-09-18 22:53] LABS: PROTHROMBIN TIME (PATIENT) 10.7 SECONDS (9.0-12.0)
[2017-09-18] MEDS: CLONIDINE HCL 0.1 MG TAB PO PRN (23:46)
[2017-09-19 03:25] VITALS: BP 178/89; PULSE 77; TEMP 36.4; O2SAT 97
[2017-09-19] MEDS ORDERED: HEPARIN SOD 5000 UNIT/0.5 ML CARP SQ SCH (06:00)
[2017-09-19 06:34] LABS: BUN/CREATININE RATIO 24.9 (10-20); CALCIUM 8.4 mg/dl (8.5-10.1); CREATININE 0.92 mg/dl (0.60-1.20)
[2017-09-19 07:56] VITALS: BP 186/82; PULSE 79; TEMP 36.7; O2SAT 100
[2017-09-19] MEDS: CLONIDINE HCL 0.3 MG TAB PO SCH (08:40)
[2017-09-19] MEDS: IRBESARTAN 150 MG TAB PO SCH (08:40)
[2017-09-19] MEDS: MIRTAZAPINE SOLTAB 15 MG PO SCH (08:42)
[2017-09-19] MEDS: BISACODYL 5 MG TABEC PO SCH (08:44)
[2017-09-19] MEDS: ASPIRIN 81 MG CHEW PO SCH (08:45)
[2017-09-19] MEDS: INSULIN ASPART 100 UNITS/ML 3 ML PEN SC SCH (08:54)
[2017-09-19] MEDS: INSULIN DETEMIR FLEXPEN/FLEX TOUCH 100 UNITS/ML 3ML SC SCH (08:55)
[2017-09-19] MEDS ORDERED: HYDROCHLOROTHIAZIDE 25 MG TAB PO SCH ×2 (09:00)
[2017-09-19] MEDS: AMLODIPINE BESYLATE 5 MG TAB PO SCH (09:51)
[2017-09-19] MEDS: CLONIDINE HCL 0.1 MG TAB PO PRN (09:51)
[2017-09-19 10:07] VITALS: BP_SYST 196; BP_SYST 205; BP_DIAS 105; BP_DIAS 80; BP_DIAS 81
[2017-09-19] MEDS ORDERED: HYDR25TA5 PO (10:50)
[2017-09-19 10:52] VITALS: BP 169/63; PULSE 71; TEMP 36.9; O2SAT 97
--- NOTE | 2017-09-19 10:57 | Discharge Instructions ---
Discharge Instructions Date of Service Sep 19, 2017. Admission Reason for Admission: Hypertensive Emergency Discharge Discharge Diagnosis / Problem: hypertensive urgency Discharge Goals Goal(s): Diagnostic testing, Therapeutic intervention Activity Recommendations Activity Level: Assistance Required Therapies: Physical Therapy, Occupational Therapy .76yo female:with hypertensive urgency - improved with simply reinstituting home medications. She is on a 4-drug regimen with high-doses of clonidine, norvasc, ARB, and hydralazine added hydrochlorothiazide TSH in the past was normal. Renal artery doppler 12/2016 was normal. Sleep study from 01/2017 was normal. Never has had renin/lois levels -- these are pending at discharge Could consider CTA of the renal arteries only if intervention is agreed upon by patient and family For improved BP control would suggest tapering off hydralazine and adding low- dose HCTZ 12.5mg daily. If she has hyperaldosteronism then would substitute aldactone for HCTZ. CIDP (chronic inflammatory demyelinating polyneuropathy) - she is quite stable today from a cardiopulmonary standpoint. Her typical dose is 60 grams every 30 days. I spoke with pharmacy and it appears she received about 10 gms of IVIG yesterday before they aborted the infusion and sent her to the ER. Did give the remaining 50 gms today with tylenol/benedryl prior. sinus bradycardia and suspected sinus arrhythmia - this only occurs with sleep suggesting increased vagal tone with sleep. I would have thought she had sleep disordered breathing/BEVERLEY but her sleep study in January 2017 was normal. Avoid beta esa due to the significant bradycardia w/ sleep. T2DM - control adequate at this time with levemir/novolog. ?underlying mild cognitive impairment/early dementia - would need to investigate outpatient records and speak with feliciano davidson. Additional Information Patient informed of condition: Yes Advance Directives: Yes DNR: Yes Level of Care: Skilled Communicable Disease: No Prognosis: Stable Mai Catheter: No Instructions / Follow-Up Instructions / Follow-Up Please check blood pressure daily and have provider review 09/21 Current Hospital Diet Patient's current hospital diet: Diabetes Type 2 Diet Discharge Diet Recommended Diet: Low Sodium Diet (2gm Na) Pending Studies Studies pending at discharge: yes List of pending studies: renin lois levels sent and are pending Laboratory Results Hemoglobin A1c Test 07/20/17 05:43 Range/Units Estimated Average Glucose 88 mg/dl Hemoglobin A1c 4.7 4.5-5.6 % Medical Emergencies . Who to Call and When: Medical Emergencies: If at any time you feel your situation is an emergency, please call 911 immediately. . Non-Emergent Contact Non-Emergency issues call your: Primary Care Provider Call Non-Emergent contact if: temperature is above 101, your pain is unusual for you . . "Provider Documentation" section prepared by Fredy Trevizo. . Core Measure Problem Core Measures: None
[2017-09-19 12:29] VITALS: BP 169/63; PULSE 71; TEMP 36.9; O2SAT 97
[2017-09-19] MEDS ORDERED: ACETAMINOPHEN 500 MG TAB PO SCH (15:30)
--- NOTE | 2017-09-19 17:13 | Discharge Summary ---
Discharge Summary Date of Service Sep 19, 2017. Discharge Summary Admission Date: Sep 17, 2017 at 18:26 Discharge Date: Sep 19, 2017 Discharge Disposition: senior care facility Principal Diagnosis: hypertensive urgency Problems/Secondary Diagnoses: (1) Hypertension Nos Status: Chronic Medication Reconciliation New Medications: Hydrochlorothiazide (Hydrochlorothiazide) 25 Mg Tab 25 MG PO QAM, #30 TAB 5 Refills Continued Medications: Acetaminophen (Tylenol) 325 Mg Tab 650 MG PO DIRECTED, TAB Amlodipine Besylate (Norvasc) 5 Mg Tab 10 MG PO DAILY Aspirin (Aspirin Chewable) 81 Mg Chew 81 MG PO DAILY Bisacodyl (Dulcolax) 5 Mg Tab 10 MG PO DIRECTED for 1 Day, TAB Clonidine Hcl (Catapres) 0.3 Mg Tab 0.3 MG PO BID, TAB Clonidine Hcl (Catapres) 0.1 Mg Tab 0.1 MG PO DIRECTED for 90 Days, TAB 1 Refill TAKE 1 TABLET ORALLY EVERYSHIFT NEEDED FOR SYSTOLIC BLOOD PRESSURE > OR EQUAL TO 170. Hydralazine Hcl (Apresoline) 50 Mg Tab 50 MG PO TID for 30 Days, #90 TAB 5 Refills Insulin Detemir (Levemir) 100 Units/Ml Inj 10 UNITS SQ PM Insulin Detemir (Levemir) 100 Units/Ml Inj 15 UNITS SC QAM Insulin Lispro (Human) (Humalog) 100 Unit/Ml Inj 10 UNITS SC BID takes with lunch and supper Irbesartan (Irbesartan) 300 Mg Tab 300 MG PO DAILY for 30 Days, #30 TAB 5 Refills Mirtazapine Soltab (Remeron Soltab) 15 Mg Soltab 7.5 MG PO DAILY, TAB Discharge Exam Review of Systems: Constitutional: No fever, No chills Respiratory: No cough, No sputum Abdomen: No pain, No nausea, No vomiting Musculoskeletal: No joint pain, No muscle pain Genitourinary - Female: No dysuria, No urinary frequency Physical Exam: General Appearance: WD/WN, + mild distress Eyes: PERRL, EOMI Respiratory/Chest: chest non-tender, lungs clear, normal breath sounds Cardiovascular: regular rate, rhythm, no murmur Abdomen / GI: normal bowel sounds, non tender, soft Extremities: no pedal edema, normal range of motion Neurologic/Psychiatric: alert, oriented x 3 Hospital Course 76yo female:with hypertensive urgency - HTN improved with simply reinstituting home medications. 4-drug regimen with high-doses of clonidine, norvasc, ARB, and hydralazine. TSH in the past was normal. Renal artery doppler 12/2016 was normal. Sleep study from 01/2017 was normal. Never has had renin/lois levels -- these are pending at discharge Could consider CTA of the renal arteries just to be complete as there are occasional false negatives with doppler studies. I personally spoke to Dr Sena molina will follow at [facility] to determine need for further testing For improved BP added low-dose HCTZ 25mg daily.. CIDP (chronic inflammatory demyelinating polyneuropathy) - she is quite stable today from a cardiopulmonary standpoint. Her typical dose is 60 grams every 30 days. she received about 10 gms of IVIG before they aborted the infusion and sent her to the ER. she was given the remaining 50 gms today with tylenol/benedryl prior. sinus bradycardia and suspected sinus arrhythmia - this only occurs with sleep suggesting increased vagal tone with sleep. I would have thought she had sleep disordered breathing/BEVERLEY but her sleep study in January 2017 was normal. Avoid beta esa due to the significant bradycardia w/ sleep. T2DM - control adequate at this time with levemir/novolog. ?underlying mild cognitive impairment/early dementia - would need to investigate outpatient records and speak with feliciano davidson. Total Time Spent: Greater than 30 minutes This includes examination of the patient, discharge planning, medication reconciliation, and communication with other providers. Discharge Instructions Please refer to the electronic Patient Visit Report (Discharge Instructions) for additional information.
== END 2017-09-19 14:18 | DRG 305 ==
LOC: C.EDB 11:58 → C.2E 17:14 → EDBEDREQ 17:14 → INTOOBSV 17:14 → ENRESERV 17:26 → OBSVTOIN 18:26
PROVIDERS: ADMIT Family Medicine; ATTEND Internal Medicine
DX: I16.0 Hypertensive urgency (principal); G61.81 Chronic inflammatory demyelinating polyneuritis; R00.1 Bradycardia, unspecified; E11.9 Type 2 diabetes mellitus without complications; I10 Essential (primary) hypertension; G31.84 Mild cognitive impairment of uncertain or unknown etiology; Z79.4 Long term (current) use of insulin; Z79.82 Long term (current) use of aspirin; Z79.899 Other long term (current) drug therapy; Z80.6 Family history of leukemia

== ENCOUNTER → 2017-09-22 | Outpatient (CLI) | payer OTHER ==
[~2017-09-22] MED LIST changes: +HYDR25TA5 PO; -INSUINJ12 SC; +LVMI SC; -MOMLX; -SODI1ENE
[2017-09-27 11:28] LABS: METANEPHRINE 10 mcg/24 h (90-315); NORMETANEPHRINE UR 28 mcg/24 h (122-676); TOTAL METANEPHRINE 38 mcg/24 h (224-832)
[2017-09-27 18:35] LABS: VANILMANDELIC ACID (VMA) 0.4 mg/24 h (<=6.0)
--- NOTE | 2017-10-26 06:49 | CODING QUERY NO DIAGNOSIS ---
TREATMENT RENDERED WITHOUT A DIAGNOSIS To promote full compliance with coding requirements relating to patient care, physician participation is requested in all cases of tower watchman uncertainty. Please assist us with providing a diagnosis/symptom for the test(s) below: A diagnosis/symptom was not documented on your Order. A valid diagnosis/symptom is required to bill all insurances. Please remember that we are unable to code a diagnosis of rule out, probable, possible, questionable, or suspected. Tests that require a diagnosis for DOS: 09/22/17: * METANEPHRINES URINE DIAGNOSIS: * VANILMANDELIC ACID, URINE DIAGNOSIS: Provider Signature: Date: Thank you Emilie Gaspar [employer] Once completed, please kindly fax back to [phone] For questions please call [phone]
== END ==
LOC: C.LABCC 10:48
PROVIDERS: ATTEND Internal Medicine
DX: I10 Essential (primary) hypertension (principal)

== ENCOUNTER → 2017-09-24 | Outpatient (CLI) | payer OTHER | LOC: C.LABCC 07:57 | PROVIDERS: ATTEND Internal Medicine | DX: I10 Essential (primary) hypertension (principal) ==

== ENCOUNTER → 2017-10-17 | Outpatient (CLI) | payer OTHER ==
[~2017-10-17] MED LIST changes: -BISA-16 PO; -HYDR25TA5 PO
[2017-10-17 08:49] LABS: BLOOD UREA NITROGEN 35 mg/dl (7-18); CALCIUM 8.9 mg/dl (8.5-10.1); CARBON DIOXIDE 23 mmol/L (21-32); CHLORIDE 94 mmol/L (98-107); CREATININE 0.95 mg/dl (0.60-1.20); GLUCOSE 109 mg/dl (70-99); POTASSIUM 3.5 mmol/L (3.5-5.1); SODIUM 126 mmol/L (136-145)
== END ==
LOC: C.LABCC 08:22
PROVIDERS: ATTEND Internal Medicine
DX: E87.1 Hypo-osmolality and hyponatremia (principal)

== ENCOUNTER → 2017-10-19 | Outpatient (CLI) | payer OTHER ==
[2017-10-19 11:15] LABS: BLOOD UREA NITROGEN 35 mg/dl (7-18); BUN/CREATININE RATIO 33.2 (10-20); CALCIUM 8.9 mg/dl (8.5-10.1); CARBON DIOXIDE 25 mmol/L (21-32); CHLORIDE 95 mmol/L (98-107); CREATININE 1.04 mg/dl (0.60-1.20); GLUCOSE 61 mg/dl (70-99); POTASSIUM 3.5 mmol/L (3.5-5.1); SODIUM 127 mmol/L (136-145)
== END ==
LOC: C.LABCC 15:03
PROVIDERS: ATTEND Internal Medicine
DX: E87.1 Hypo-osmolality and hyponatremia (principal)

== ENCOUNTER → 2017-10-22 | Outpatient (CLI) | payer OTHER ==
[2017-10-22 09:09] LABS: BLOOD UREA NITROGEN 35 mg/dl (7-18); CALCIUM 8.6 mg/dl (8.5-10.1); CARBON DIOXIDE 23 mmol/L (21-32); CREATININE 0.99 mg/dl (0.60-1.20); GLUCOSE 92 mg/dl (70-99); POTASSIUM 3.9 mmol/L (3.5-5.1); SODIUM 126 mmol/L (136-145)
--- NOTE | 2017-10-29 14:11 | CODING QUERY NO DIAGNOSIS ---
TREATMENT RENDERED WITHOUT A DIAGNOSIS To promote full compliance with coding requirements relating to patient care, physician participation is requested in all cases of remote medical coder uncertainty. Please assist us with providing a diagnosis/symptom for the test(s) below: A diagnosis/symptom was not documented on your Order. A valid diagnosis/symptom is required to bill all insurances. Please remember that we are unable to code a diagnosis of rule out, probable, possible, questionable, or suspected. Tests that require a diagnosis: * PARTIAL RENAL PROFILE DIAGNOSIS: Provider Signature: Date: Thank you Svetlana Fuller [employer] Once completed, please kindly fax back to [phone] For questions please call [phone]
== END ==
LOC: C.LABCC 08:22
PROVIDERS: ATTEND Internal Medicine
DX: E87.1 Hypo-osmolality and hyponatremia (principal)

== ENCOUNTER → 2017-10-26 | Outpatient (CLI) | payer OTHER ==
[2017-10-26 08:59] LABS: BLOOD UREA NITROGEN 34 mg/dl (7-18); BUN/CREATININE RATIO 36.9 (10-20); CALCIUM 8.7 mg/dl (8.5-10.1); CARBON DIOXIDE 22 mmol/L (21-32); CHLORIDE 97 mmol/L (98-107); CREATININE 0.91 mg/dl (0.60-1.20); GLUCOSE 86 mg/dl (70-99); POTASSIUM 3.9 mmol/L (3.5-5.1); SODIUM 128 mmol/L (136-145)
== END ==
LOC: C.LABCC 08:28
PROVIDERS: ATTEND Internal Medicine
DX: E87.1 Hypo-osmolality and hyponatremia (principal)

== ENCOUNTER → 2017-11-20 | Outpatient (CLI) | payer OTHER ==
[~2017-11-20] MED LIST changes: +AMLO10TA3 PO; +ASPI81TA28 PO; +BISA10SU3 PR; +HYDR25TA4 PO; +IRBESARTAN PO; +MIRT15TA PO; +MOMLX PO; +SODIENE PR
[2017-11-20 10:15] LABS: BLOOD UREA NITROGEN 29 mg/dl (7-18); CALCIUM 8.3 mg/dl (8.5-10.1); CARBON DIOXIDE 23 mmol/L (21-32); CREATININE 0.76 mg/dl (0.60-1.20); GLUCOSE 136 mg/dl (70-99); POTASSIUM 3.8 mmol/L (3.5-5.1); SODIUM 137 mmol/L (136-145)
== END ==
LOC: C.LABCC 09:36
PROVIDERS: ATTEND Internal Medicine
DX: E87.6 Hypokalemia (principal)

== ENCOUNTER → 2017-11-23 | Outpatient (CLI) | payer OTHER ==
[2017-11-23 09:57] LABS: HEMOGLOBIN A1C 4.7 % (4.5-5.6)
== END ==
LOC: C.LABCC 08:58
PROVIDERS: ATTEND Internal Medicine
DX: E11.9 Type 2 diabetes mellitus without complications (principal)

== ENCOUNTER 2018-01-09 11:24 | Emergency (ER) | payer OTHER ==
[~2018-01-09] VITALS: Ht 167.6 cm; Wt 83.6 kg
[~2018-01-09 11:24] MED LIST changes: -AMLO10TA3 PO; -ASPI81TA28 PO; -BISA10SU3 PR; -IRBESARTAN PO; -MIRT15TA PO; -MOMLX PO; -SODIENE PR
[2018-01-09 11:29] VITALS: TEMP 37.1; Ht 167.6 cm; Wt 83.6 kg
--- NOTE | 2018-01-09 12:15 | DIAGNOSTIC IMAGING REPORT ---
CHEST ONE VIEW PORTABLE HISTORY: severe hypertension COMPARISON: Chest 09/30/2017. FINDINGS: The lungs are clear. The heart is normal in size. No pleural effusions. No pneumothorax. Old, healed left-sided rib fractures. Right jugular Port-A-Cath terminates in the SVC. IMPRESSION: No significant change compared to the prior study. No acute process. Electronically signed by: Marbin Dubois M.D. 01/09/2018 12:14 PM Dictated Date/Time: 01/09/2018 12:13 PM
[2018-01-09] MEDS ORDERED: BISA10SU3 PR (12:16)
[2018-01-09] MEDS ORDERED: SODIENE PR (12:16)
[2018-01-09] MEDS ORDERED: ASPI81TA28 PO (12:16)
[2018-01-09] MEDS ORDERED: MIRT15TA PO (12:16)
[2018-01-09] MEDS ORDERED: AMLO-114 PO (12:16)
[2018-01-09] MEDS ORDERED: MOMLX PO (12:16)
[2018-01-09 12:41] LABS: BASO % 0.2 %; BASO ABS # 0.01 K/uL (0-0.2); EOS % 0.9 %; EOS ABS # 0.04 K/uL (0-0.5); HEMATOCRIT 34.2 % (37-47); HEMOGLOBIN 12.4 g/dL (12.0-16.0); IG# 0.01 K/uL (0.00-0.02); LYMPH % 25.6 %; LYMPH ABS # 1.14 K/uL (1.2-3.4); MEAN CELL VOLUME 87.5 fL (80-100); MEAN CORPUSCULAR HEMOGLOBIN 31.7 pg (25-34); MEAN CORPUSCULAR HGB CONC 36.3 g/dl (32-36); MEAN PLATELET VOLUME 9.4 fL (7.4-10.4); MONO % 13.5 %; NEUT % 59.6 %; NEUT ABS # 2.66 K/uL (1.4-6.5); PLATELET COUNT 254 K/uL (130-400); RED CELL DISTRIBUTION WIDTH CV 13.7 % (11.5-14.5); RED CELL DISTRIBUTION WIDTH SD 43.8 fL (36.4-46.3); WHITE BLOOD COUNT 4.46 K/uL (4.8-10.8)
[2018-01-09 13:01] LABS: ALBUMIN 3.5 gm/dl (3.4-5.0); ALT/SGPT 31 U/L (12-78); BLOOD UREA NITROGEN 27 mg/dl (7-18); CARBON DIOXIDE 22 mmol/L (21-32); CREATININE 0.96 mg/dl (0.60-1.20); GLUCOSE 154 mg/dl (70-99); LIPASE 140 U/L (73-393); POTASSIUM 3.6 mmol/L (3.5-5.1); SODIUM 133 mmol/L (136-145)
[2018-01-09 13:12] LABS: ALKALINE PHOSPHATASE 74 U/L (45-117); AST/SGOT 24 U/L (15-37); CKMB 1.5 ng/ml (0.5-3.6); TOTAL PROTEIN 9.8 gm/dl (6.4-8.2)
[2018-01-09 13:24] LABS: PTT PATIENT > 300.0 SECONDS (21.0-31.0)
--- NOTE | 2018-01-09 13:26 | EMERGENCY ROOM VISIT NOTE ---
History Report prepared by Adiel: Kumar Arriaga Under the Supervision of: Dr. Lobo Miguel M.D. First contact with patient: 11:50 Chief Complaint: HYPERTENSION Stated Complaint: HIGH BP History of Present Illness The patient is a 77 year old female who presents to the Emergency Room with complaints of hypertension that was recorded earlier this morning. She has a past medical history of hypertension and CVIP. She received IV IG infusions once a month for two days. Today while receiving her second day of IV IG, her blood pressure was found to be elevated. Normally, the patient's blood pressure rises mildly when receiving treatments, but it has never been this high. She was then referred to the ER for further treatment and evaluation. Pt denies LOC , headache, fevers, chills, diaphoresis, visual changes, neck pain, chest pain, breathing difficulties, nausea, vomiting, abdominal pain, back pain, melena, hematochezia, urinary symptoms, numbness, weakness, lymphadenopathy, rash, or other complaints. She took all of her normal medications today. Source of History: patient Onset: earlier today Position: other (Global) Symptom Intensity: moderate Quality: other (HTN) Timing: constant Review of Systems See HPI for pertinent positives and negatives. A total of ten systems were reviewed and were otherwise negative. Past Medical & Surgical Medical Problems: (1) CIDP (chronic inflammatory demyelinating polyneuropathy) (2) Diab Felisha Wo Comp Type I Not Uncontrolled (3) Hypertension Nos (4) Hypertensive emergency Surgical Problems: (1) History of cholecystectomy (2) History of tonsillectomy Family History Diabetes mellitus Hypertension Social History Smoking Status: Never Smoker Alcohol Use: none Drug Use: none Marital Status: Housing Status: fpc Occupation Status: retired Current/Historical Medications Scheduled Amlodipine (Norvasc), 10 MG PO DAILY Aspirin (Aspirin Ec), 81 MG PO DAILY Clonidine Hcl (Catapres), 0.3 MG PO Q12 Hydralazine Hcl (Apresoline), 50 MG PO Q8 Hydrochlorothiazide (Hctz), 25 MG PO DAILY Insulin Detemir (Levemir), 15 UNITS SQ PM Insulin Detemir (Levemir), 10 UNITS SC QAM Insulin Lispro (Human) (Humalog), 10 UNITS SC BID Irbesartan (Irbesartan), 300 MG PO DAILY Mirtazapine (Remeron), 7.5 MG PO HS Scheduled PRN Acetaminophen (Tylenol), 650 MG PO Q6 PRN for Pain or Fever Bisacodyl (Dulcolax), 1 SUPP IA UD PRN for Constipation Clonidine Hcl (Catapres), 0.1 MG PO Q8 PRN for BLOOD PRESSURE Magnesium Hydroxide (Milk of Magnesia), 30 ML PO UD PRN for Constipation Sodium Phosphate/Biphosphate (Fleet Enema), 1 EA IA DAILY PRN for Constipation Allergies Coded Allergies: Mycophenolate (Verified Allergy, Unknown, unknown, 01/09/18) info from [facility] Nortriptyline (Verified Allergy, Unknown, unknown, 01/09/18) info from [facility] Gabapentin (Verified Adverse Reaction, Intermediate, DOUBLE VISION, NAUSEA , VOMITING, 01/09/18) Physical Exam Vital Signs Date Time Temp Pulse Resp B/P (MAP) Pulse Ox O2 Delivery O2 Flow Rate FiO2 01/09/18 18:02 82 01/09/18 17:33 82 18 197/115 01/09/18 16:06 77 12 97 01/09/18 16:01 207/80 01/09/18 16:00 212/111 01/09/18 15:39 260/136 01/09/18 15:22 221/97 01/09/18 15:06 19 01/09/18 15:01 209/102 01/09/18 14:36 15 01/09/18 14:31 196/130 01/09/18 14:19 Room Air 01/09/18 14:06 18 01/09/18 14:01 195/96 01/09/18 13:59 4 01/09/18 13:31 192/100 01/09/18 13:29 20 01/09/18 13:02 204/197 01/09/18 12:31 208/126 01/09/18 12:29 83 16 01/09/18 12:24 81 14 01/09/18 12:21 89 01/09/18 12:20 199/91 01/09/18 12:13 222/93 01/09/18 12:12 239/141 01/09/18 11:54 67 18 01/09/18 11:39 67 15 01/09/18 11:31 179/98 01/09/18 11:29 37.1 70 19 179/98 98 Room Air 01/09/18 11:28 252/125 Physical Exam GENERAL: Awake, alert, well-appearing, in no distress HENT: Normocephalic, atraumatic. Oropharynx unremarkable. EYES: Normal conjunctiva. Sclera non-icteric. NECK: Supple. No nuchal rigidity. FROM. No masses. RESPIRATORY: Clear to auscultation. No wheezes. CARDIAC: Normal rate. Normal rhythm. No murmurs. No rubs. Extremities warm and well perfused. Pulses equal. No JVD. GI: Soft, non-distended. No tenderness to palpation. No rebound or guarding. No masses. RECTAL: Deferred. MUSCULOSKELETAL: Atraumatic. Chest examination reveals no tenderness. The back is symmetrical on inspection without obvious abnormality. There is no CVA tenderness to palpation. No joint edema. LOWER EXTREMITIES: Calves are equal size bilaterally and non-tender. No edema. No discoloration. NEURO: Normal sensorium. No sensory or motor deficits noted. Mild weakness to the bilateral lower extremities. No focal weakness. SKIN: No rash or jaundice noted. Medical Decision & Procedures ER Provider Diagnostic Interpretation: Radiology results as stated below per my review and radiologist interpretation: CHEST ONE VIEW PORTABLE HISTORY: severe hypertension COMPARISON: Chest 09/30/2017. FINDINGS: The lungs are clear. The heart is normal in size. No pleural effusions. No pneumothorax. Old, healed left-sided rib fractures. Right jugular Port-A-Cath terminates in the SVC. IMPRESSION: No significant change compared to the prior study. No acute process. Electronically signed by: Marbin Dubois M.D. 01/09/2018 12:14 PM Dictated Date/Time: 01/09/2018 12:13 PM Laboratory Results 01/09/18 12:16 Red Blood Count 3.91, Mean Corpuscular Volume 87.5, Mean Corpuscular Hemoglobin 31.7, Mean Corpuscular Hemoglobin Concent 36.3, Mean Platelet Volume 9.4, Neutrophils (%) (Auto) 59.6, Lymphocytes (%) (Auto) 25.6, Monocytes (%) (Auto) 13.5, Eosinophils (%) (Auto) 0.9, Basophils (%) (Auto) 0.2, Neutrophils # (Auto ) 2.66, Lymphocytes # (Auto) 1.14, Monocytes # (Auto) 0.60, Eosinophils # (Auto ) 0.04, Basophils # (Auto) 0.01 01/09/18 12:16 Test 01/09/18 12:16 01/09/18 14:04 White Blood Count 4.46 K/uL (4.8-10.8) Red Blood Count 3.91 M/uL (4.2-5.4) Hemoglobin 12.4 g/dL (12.0-16.0) Hematocrit 34.2 % (37-47) Mean Corpuscular Volume 87.5 fL (80-100) Mean Corpuscular Hemoglobin 31.7 pg (25-34) Mean Corpuscular Hemoglobin Concent 36.3 g/dl (32-36) Platelet Count 254 K/uL (130-400) Mean Platelet Volume 9.4 fL (7.4-10.4) Neutrophils (%) (Auto) 59.6 % Lymphocytes (%) (Auto) 25.6 % Monocytes (%) (Auto) 13.5 % Eosinophils (%) (Auto) 0.9 % Basophils (%) (Auto) 0.2 % Neutrophils # (Auto) 2.66 K/uL (1.4-6.5) Lymphocytes # (Auto) 1.14 K/uL (1.2-3.4) Monocytes # (Auto) 0.60 K/uL (0.11-0.59) Eosinophils # (Auto) 0.04 K/uL (0-0.5) Basophils # (Auto) 0.01 K/uL (0-0.2) RDW Standard Deviation 43.8 fL (36.4-46.3) RDW Coefficient of Variation 13.7 % (11.5-14.5) Immature Granulocyte % (Auto) 0.2 % Immature Granulocyte # (Auto) 0.01 K/uL (0.00-0.02) Prothrombin Time 10.4 SECONDS (9.0-12.0) Prothromb Time International Ratio 1.0 (0.9-1.1) Anion Gap 10.0 mmol/L (3-11) Est Creatinine Clear Calc Drug Dose 52.6 ml/min Estimated GFR () 65.7 Estimated GFR (Non- 56.6 BUN/Creatinine Ratio 28.0 (10-20) Calcium Level 9.0 mg/dl (8.5-10.1) Total Bilirubin 0.5 mg/dl (0.2-1) Direct Bilirubin 0.1 mg/dl (0-0.2) Aspartate Amino Transf (AST/SGOT) 24 U/L (15-37) Alanine Aminotransferase (ALT/SGPT) 31 U/L (12-78) Alkaline Phosphatase 74 U/L (45-117) Total Creatine Kinase 60 U/L (26-192) Creatine Kinase MB 1.5 ng/ml (0.5-3.6) Creatine Kinase MB Ratio 2.5 (0-3.0) Troponin I < 0.015 ng/ml (0-0.045) Total Protein 9.8 gm/dl (6.4-8.2) Albumin 3.5 gm/dl (3.4-5.0) Lipase 140 U/L (73-393) Thyroid Stimulating Hormone (TSH) 1.920 uIu/ml (0.300-4.500) Activated Partial Thromboplast Time 37.1 SECONDS (21.0-31.0) Partial Thromboplastin Ratio 1.4 Laboratory results reviewed by me Medications Administered Medications (Trade) Dose Ordered Sig/Mila Route Start Time Stop Time Status Last Admin Dose Admin Clonidine HCl (Catapres Tab) 0.1 mg NOW ONCE PO 01/09/18 15:00 01/09/18 15:01 DC 01/09/18 15:19 0.1 MG Hydralazine HCl (Apresoline Tab) 50 mg NOW STAT PO 01/09/18 17:05 01/09/18 17:06 DC 01/09/18 17:35 50 MG Clonidine HCl (Catapres Tab) 0.1 mg NOW ONCE PO 01/09/18 18:15 01/09/18 18:16 DC 01/09/18 18:24 0.1 MG ECG Indication: other (HTN) Rate (beats per minute): 71 Rhythm: sinus rhythm, other (with sinus arrhythmia) Findings: no acute ischemic change, no ectopy, other (LVH) Change: Patient's electrocardiogram was interpreted by me. ED Course 1150: The patient was evaluated in room C6. A complete history and physical exam was performed. 1500: Ordered Catapres Tab 0.1 mg PO 1525: Upon reevaluation, the patient is feeling well. 1705: Ordered Apresoline Tab 50 mg PO 1814: Ordered Catapres Tab 0.1 mg PO 1830: I reevaluated the patient. Discussed results and discharge instructions: She verbalized understanding and agreement. 1841: Reassessed the patient. Her blood pressure is 198/97. This is similar to her prior elevated blood pressures at the time of discharge from her last hospitalization. I discussed continued management at her nursing facility as she is completely asymptomatic. Patient was given dinner. Transportation was arranged. The patient is ready for discharge. Medical Decision Prior records/ancillary studies reviewed regarding the history above. Triage Nursing notes reviewed and agree them. The patient's history was concerning for hypertension. Differential diagnosis: Etiologies such as hypertensive urgency, hypertensive emergency, benign hypertension, cardiovascular pathology, pheochromocytoma, electrolyte abnormality, renal disease, endorgan damage, as well as others were entertained. Physical examination: As above. ER treatment provided: Observation Oral clonidine 0.1 mg 2 Oral hydralazine 50 mg On reassessment the patient felt better. Diagnostic interpretation by me: The electrocardiogram was negative for pathologic change. The labs revealed an unremarkable CBC and chemistry panel. Imaging studies: Chest x-ray as above The patient was observed for many hours. She was treated with her regular medications. Her blood pressure was still moderately elevated but not significantly different than prior measurements. She is completely asymptomatic. I discussed conservative management with her. As she is asymptomatic and has improving blood pressures with the above treatment continued care as an outpatient seems to be most appropriate. If she develops any problems she should be sent back to the emergency department. The patient was comfortable with this plan. I gave my usual and customary discussion regarding this issue. By the evaluation outlined above other emergent etiologies such as those listed in the differential, as well as others, were deemed relatively unlikely. The patient was educated about the findings as listed above. All questions were answered and the patient was pleased with the treatment. Return instructions were outlined and the patient was discharged in stable condition. The patient was referred to her primary for follow-up for a recheck of the current condition. Medication Reconcilliation Current Medication List: was personally reviewed by me Blood Pressure Screening Patient's blood pressure: Elevated blood pressure Blood pressure disposition: Referred to PCP Impression Primary Impression: Hypertension Scribe Attestation The scribe's documentation has been prepared under my direction and personally reviewed by me in its entirety. I confirm that the note above accurately reflects all work, treatment, procedures, and medical decision making performed by me. Departure Information Dispostion Home / Self-Care Referrals Pippa Sheehan (PCP) Forms HOME CARE DOCUMENTATION FORM, IMPORTANT VISIT INFORMATION, WORK / SCHOOL INSTRUCTIONS Patient Instructions My [facility] Additional Instructions Continue current medications. The patient was given her afternoon hydralazine 50 mg as well as 2 doses of clonidine 0.1 mg each. Please have the patient's primary treating physicians evaluate her blood pressure issues tomorrow. Return to the ER for blood pressures consistently exceeding 220 systolic or 120 diastolic, chest pain, headache, difficulty breathing, fevers, vomiting, worsening of your condition, or as needed.
[2018-01-09 14:22] LABS: PTT PATIENT 37.1 SECONDS (21.0-31.0)
[2018-01-09] MEDS ORDERED: CLONIDINE HCL 0.1 MG TAB PO ONE ×2 (15:00→18:15)
[2018-01-09 19:15] VITALS: BP 197/98; PULSE 78; O2SAT 96
== END 2018-01-09 19:20 | disposition home or self-care (01) ==
LOC: EDBD 11:24 → EDSEX 11:24 → C.EDC 11:27
DX: I10 Essential (primary) hypertension (principal); G61.81 Chronic inflammatory demyelinating polyneuritis; E10.9 Type 1 diabetes mellitus without complications; Z83.3 Family history of diabetes mellitus; Z82.49 Family history of ischemic heart disease and other diseases of the circulatory system; Z79.82 Long term (current) use of aspirin; Z79.4 Long term (current) use of insulin

== ENCOUNTER → 2018-01-16 | Outpatient (CLI) | payer OTHER ==
[~2018-01-16] MED LIST changes: +AMLO-114 PO; -AMLO5TAB2 PO; -ASPCH81X PO; +ASPI81TA28 PO; +BISA10SU3 PR; +MIRT15TA PO; -MIRT15TA2 PO; +MOMLX PO; +SODIENE PR
[2018-01-16 08:31] LABS: BLOOD UREA NITROGEN 28 mg/dl (7-18); CALCIUM 9.1 mg/dl (8.5-10.1); CARBON DIOXIDE 26 mmol/L (21-32); CREATININE 1.05 mg/dl (0.60-1.20); GLUCOSE 148 mg/dl (70-99); POTASSIUM 3.8 mmol/L (3.5-5.1); SODIUM 134 mmol/L (136-145)
== END ==
LOC: C.LABCC 07:48
PROVIDERS: ATTEND Internal Medicine
DX: E87.1 Hypo-osmolality and hyponatremia (principal)

== ENCOUNTER → 2018-02-19 | Outpatient (CLI) | payer OTHER | LOC: C.LABCC 07:49 | PROVIDERS: ATTEND Internal Medicine | DX: E78.5 Hyperlipidemia, unspecified (principal) ==

== ENCOUNTER → 2018-03-27 | Outpatient (CLI) | payer OTHER ==
[2018-03-27 09:57] LABS: HEMOGLOBIN A1C 6.2 % (4.5-5.6)
== END ==
LOC: C.LABCC 08:01
PROVIDERS: ATTEND Internal Medicine
DX: E11.9 Type 2 diabetes mellitus without complications (principal)

== ENCOUNTER → 2018-04-16 | Outpatient (CLI) | payer OTHER ==
[2018-04-16 08:08] LABS: BLOOD UREA NITROGEN 26 mg/dl (7-18); CALCIUM 8.5 mg/dl (8.5-10.1); CARBON DIOXIDE 26 mmol/L (21-32); CREATININE 0.89 mg/dl (0.60-1.20); GLUCOSE 165 mg/dl (70-99); POTASSIUM 3.8 mmol/L (3.5-5.1); SODIUM 136 mmol/L (136-145)
== END ==
LOC: C.LABCC 07:46
PROVIDERS: ATTEND Internal Medicine
DX: E87.1 Hypo-osmolality and hyponatremia (principal)

== ENCOUNTER 2019-03-19 08:39 | Inpatient (IN) ==
[2019-03-19] MEDS ORDERED: SODIUM CHLORIDE 0.9% 500 ML IV SCH (09:00)
--- NOTE | 2019-03-19 09:34 | Emergency Department Note ---
ED Visit Note I, Dr. Amie Jorge, PGY3, saw this patient with my attending, Dr. Barth, and participated in the care and management of this patient. Resident Activity Tracking Resident Involvement: Resident Care Provided Care Provided: Adult Hospital Medicine : UTI (urinary tract infection) Qualifiers: Urinary tract infection type: site unspecified Hematuria presence: without hematuria Qualified Code(s): N39.0 - Urinary tract infection, site not specified
[2019-03-19 09:56] LABS: Basophils # (auto) 0.01 K/uL (0-0.2); Basophils % (auto) 0.1 %; Eosinophils # (auto) 0.01 K/uL (0-0.5); Eosinophils % (auto) 0.1 %; Hematocrit (blood only) 36.5 % (37-47); Hemoglobin 12.9 g/dL (12.0-16.0); Immature Granulocytes # (auto) 0.04 K/uL (0.00-0.02); Immature Granulocytes % (auto) 0.3 %; Lymphocytes # (auto) 1.54 K/uL (1.2-3.4); Lymphocytes % (auto) 12.5 %; Mean Corpuscular Hgb Conc 35.3 g/dL (32-36); Mean Corpuscular Volume 88.2 fL (80-100); Mean Platelet Volume 9.7 fL (7.4-10.4); Monocytes # (auto) 0.86 K/uL (0.11-0.59); Neutrophils # (auto) 9.86 K/uL (1.4-6.5); Platelet Count 374 K/uL (130-400); RDW Coefficient of Variation 14.5 % (11.5-14.5); RDW Standard Deviation 46.8 fL (36.4-46.3); Red Blood Count 4.14 M/uL (4.2-5.4); White Blood Count 12.32 K/uL (4.8-10.8)
[2019-03-19 10:03] LABS: Appearance Urine Turbid (Clear); Bacteria Urine Automated 3+ (Negative); Bilirubin Urine Negative (Negative); Blood Urine Negative (Negative); Color Urine Yellow; Epithelial Cell Urine Auto >30 /lpf (0-5); Glucose Urine UA Negative (Negative); Ketones Urine Trace (Negative); Leukocyte Esterase Urine 3+ (Negative); Nitrite Urine Negative (Negative); Specific Gravity Urine 1.017 (1.000-1.030); Urobilinogen Urine Negative (Negative); WBC Urine Automated >30 /hpf (0-5); pH Urine 8.5 (4.5-7.5)
[2019-03-19 10:13] LABS: Alanine Aminotransferase 28 U/L (12-78); Aspartate Aminotransferase 27 U/L (15-37); BUN Creatinine Ratio 34.6 (10-20); Blood Urea Nitrogen 121 mg/dl (7-18); Calcium 8.4 mg/dl (8.5-10.1); Carbon Dioxide 27 mmol/L (21-32); Chloride 91 mmol/L (98-107); Est GFR (African American) 13.6; Est GFR (Non-African American) 11.7; Glucose 231 mg/dl (70-99); Potassium 4.4 mmol/L (3.5-5.1); Sodium 129 mmol/L (136-145)
[2019-03-19] MEDS ORDERED: cefTRIAXone SODIUM 1,000 MG/50 ML BAG IV STA (10:16)
[2019-03-19] MEDS ORDERED: SODIUM CHLORIDE 0.9% 500 ML IV ONE (10:16)
[2019-03-19 10:19] LABS: Protein Urine 3+ (Negative)
--- NOTE | 2019-03-19 10:22 | CT Scan Report ---
CT head/brain wo con CT DOSE: 638.56 mGycm HISTORY: Mental status change AMS TECHNIQUE: Multiaxial CT images of the head were performed without the use of intravenous contrast. A dose lowering technique was utilized adhering to the principles of ALARA. Comparison: None. Findings: The paranasal sinuses and mastoid air cells are clear. The calvarium and skull base are int act. The ventricles and sulci are within normal limits. There is no mass, hematoma, midline shift, or acute infarct. Age-related atrophy and chronic small vessel change Impression: No acute intracranial abnormality. Age-related atrophy and chronic small vessel change. The above report was generated using voice recognition software. It may contain grammatical, syntax or spelling errors. Electronically signed by: Lenard Nesbitt M.D. 03/19/2019 10:20 AM
[2019-03-19 10:27] LABS: Albumin Globulin Ratio 0.6 (0.9-2); Alkaline Phosphatase 94 U/L (45-117); Bilirubin,Total 0.7 mg/dl (0.2-1); Globulin 4.8 gm/dl (2.5-4.0); Total Protein 7.8 gm/dl (6.4-8.2)
[2019-03-19] MEDS ORDERED: CEFEPIME 1,000 MG in SYRINGE 0 ML IV STA (10:34)
[2019-03-19 10:37] LABS: Mucus Urine Present (None Prsent)
--- NOTE | 2019-03-19 11:41 | History & Physical Report ---
Date of Service March 19, 2019 Assessment & Plan (1) Acute kidney injury: Patient with CRYS, BUN of 121, Cr of 3.51. Significantly increased from 28 and 0.99, respectively on 02/10/19. Hyponatremia. K=4.4, HCO3=27, AG=11. UA with 3+ protein, progressive from prior studies - patient with DM, severe HTN, most likely some underlying medical-renal disease. Trace ketones, LE/WBC/RBCs and bacteria. Specimen with >30 epis. Patient reports making urine and does not appear to be uremic, although by report is more confused than usual. Dry mucus membranes on exam. -Admit to PCU with continuous cardiac monitoring -Place Mai catheter for accurate I/O measurement -Check renal ultrasound -Check urine Na and Cr to calculate FeNa -Check urine protein/Cr ratio to quantify degree of proteinuria -BMP BID -NSS at 125mL/hr x 2 liters. Patient with history of Grade II diastolic dysfunction - caution to avoid overload -Avoid nephrotoxic agents -Renal dosing where appropriate -Consider Nephrology consultation pending results of above studies Present on Admission?: Yes (2) Altered mental status: Patient with baseline dementia. Reported to be more confused today prior to arrival. Today she is awake and alert, oriented to place and person only. Answers questions appropriately although has poor memory of today's events. Baseline dementia, uncertain of cognitive status - will attempt to contact shane montejo. AMS most likely secondary to underlying metabolic derangements, CRYS and hyponatremia, possible UTI as well. -Correction of CRYS as above -Empiric antibiotics, follow cultures -Frequent orientation to location and situation - delirium prevention strategies Present on Admission?: Yes (3) Hyponatremia: Mild hyponatremia, [id number]. Most likely secondary to volume contraction/dehydration. -NSS as above -Check urine Na, urine and serum osm -Continue to monitor with BID BMP Present on Admission?: Yes (4) Elevated troponin: In setting of CRYS, trop=0.06. Patient with no EKG changes consistent with acute ischemia. Was hypotensive on arrival, may be secondary to demand. No complaints of CP. -Trend troponin -Continue ASA -Telemetry monitoring Present on Admission?: Yes (5) UTI (urinary tract infection): Dirty catch, +epis. -Empiric antibiotic coverage with Ceftriaxone -Await culture results -CBC in AM to trend leukocytosis Present on Admission?: Yes (6) Diabetes mellitus: [id number] today. HgAIC=5 on 11/22/18. Patient is on Levemir 22u qAM and 6u qPM as well as Humalog 10u TID with sliding scale. -Decrease insulin regimen in setting of CRYS -Lantus 10u BID -ISS -Closely monitor blood sugars and adjust as necessary, goal 80 - 140 Present on Admission?: Yes (7) Hypertension: Patient with severe HTN. +LVH noted on echo and on EKG. 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 Stable. Patient was to receive IVIG today. Will postpone that for now until acute issues resolve -Reschedule infusion for after discharge Present on Admission?: Yes (9) Dementia: Patient with baseline dementia. Uncertain what her baseline functional status is. Will attempt to contact family for more accurate picture -Delirium prevention strategies as above F/E/N - NSS at 125mL/hr x 2 L, check Mg and PO4, BMP BID, CC diet as tolerated with aspiration precautions. Continue Bisacodyl and MOM PRN. Continue Remeron for sleep Ppx - Heparin for DVT ppx Code - Full Dispo - PCU History of Present Illness Chief Complaint: unresponsiveness Primary Care Provider: [facility] Flakita Rodriguez is a 78yo C female with history of DM on insulin, chronic inflammatory demyelinating polyneuropathy for which she receives monthly IVIG infusions. She was due for an infusion. Reportedly became unresponsive requiring sternal rub. When she woke she was slightly confused. Patient is unable to provide history and does not recall the event. Upon arrival to the ER she was afebrile, hypotensive at 72/41, 93% on room air. She was administered IVF with improvement in blood pressure, last measurement 142/73. Labs reveal CRYS with BUN of 121 and Cr of 3.51. Patient offers no complaints. She denies pain, SOB. She states that she has been eating and drinking per usual. Reports adequate UOP, no burning/frequency/urgency/hematuria or foamy urine. She denies recent changes to her medication. She does feel weak in her arms and is wondering when she will be able to receive her IVIG infusion. ER Course: Ceftriaxone 1gm, Cefepime 1gm, NSS x 1L Allergies Allergy/AdvReac Type Severity Reaction Status Date / Time mycophenolate mofetil Allergy Unknown unknown Verified 03/19/19 09:44 nortriptyline Allergy Unknown unknown Verified 03/19/19 09:44 gabapentin AdvReac Intermediate DOUBLE Verified 03/19/19 09:44 VISION, NAUSEA, VOMITING Home Medications Home Medications Medication Instructions Recorded Confirmed Type insulin lispro [Humalog U-100 10 unit SC TID #0 02/08/16 03/19/19 History Insulin] acetaminophen 650 mg PO Q6H PRN #0 08/21/16 03/19/19 History hydralazine 50 mg PO Q8 #0 01/08/17 03/19/19 History clonidine HCl 0.2 mg PO Q12 #0 03/05/17 03/19/19 History insulin detemir U-100 6 unit SUBCUT PM #0 08/20/17 03/19/19 History insulin detemir U-100 [Levemir 22 unit SC QAM #0 09/17/17 03/19/19 History U-100 Insulin] amlodipine 10 mg PO DAILY #0 01/09/18 03/19/19 History aspirin 81 mg PO DAILY #0 01/09/18 03/19/19 History bisacodyl 10 mg MD DAILY PRN #0 01/09/18 03/19/19 History magnesium hydroxide [Milk of 30 ml PO DAILY PRN #0 01/09/18 03/19/19 History Magnesia] mirtazapine [Remeron] 7.5 mg PO HS #0 01/09/18 03/19/19 History irbesartan [Avapro] 150 mg PO DAILY #0 06/25/18 03/19/19 History clonidine HCl 0.1 mg PO TID 08/20/18 03/19/19 History insulin lispro [Humalog U-100 1 sliding scale dose SUBCUT ACHS 08/20/18 03/19/19 History Insulin] sodium phosphates [Fleet Enema] 118 ml MD HS PRN 01/06/19 03/19/19 History Past Med/Surg History Medical History Altered mental status Obesity Hyponatremia Hyperlipidemia Diabetes mellitus Failure to thrive Gait abnormality Chronic inflammatory demyelinating polyneuropathy Dementia Hypertensive urgency CHF (congestive heart failure) Type II diastolic dysfunction per echo 11/2016 Hypertension Surgical History History of cholecystectomy History of tonsillectomy Family History Other No pertinent family history Social History Preferred Language: Hebrew Communication Ability: Impaired Beliefs That Will Affect Care: None Current Living Situation: Assisted Current Living Situation Comment: [facility] Other Information That Helps Us Care for You: No Feels Safe at Home: Yes Safety Concerns: Feels Safe At This Time Smoking Status: Unknown if ever smoked Hx Alcohol Use: No Hx Substance Use: No Review of Systems Review of Systems: All systems reviewed & are unremarkable except as noted in HPI & below Patient is a poor historian Physical Exam Physical Exam: General: patient resting comfortably, NAD, non-toxic in appearance, AA&O to person and location, answers questions appropriately and following commands Skin: warm, dry, intact, no rashes or lesions HEENT: NC/AT, PERRL, EOMI, anicteric sclera, conjunctiva without injection, external ear normal to inspection and nontender, nares patent, DRY mucus membranes, dentition intact, no oropharyngeal lesions, neck supple, trachea midline, no LAD, no thyromegaly, no JVD Heart: +S1/S2, regular, no m/r/g Lungs: equal air entry bilaterally, no rales/rhonchi/wheezes Abd: +BS, soft, NT/ND, no masses/organomegaly/ascites Ext: warm, 1+ pulses in UE/LE bilaterally, no clubbing/cyanosis or edema Neuro: nonfocal, patient AA&O x 2, speech intact, no facial droop, CN II-XII grossly intact, moving all extremities on command, bilateral UE weakness, 3/5. LE 5/5. Gait not assessed Results & Data Vital Signs (Past 12 Hours) Vital Signs Temp Pulse Pulse Resp BP BP Pulse Ox 03/19/19 10:58 75 20 134/113 H 98 03/19/19 09:49 94 03/19/19 08:59 96 03/19/19 08:42 36.5 C 90 20 72/51 L 93 Laboratory Results Lab Results 03/19/19 03/19/19 03/19/19 Range/Units 09:02 09:02 09:02 WBC 12.32 H (4.8-10.8) K/uL RBC 4.14 L (4.2-5.4) M/uL Hgb 12.9 (12.0-16.0) g/dL Hct 36.5 L (37-47) % MCV 88.2 (80-100) fL MCH 31.2 (25-34) pg MCHC 35.3 (32-36) g/dL RDW Std Deviation 46.8 H (36.4-46.3) fL RDW Coeff of Erick 14.5 (11.5-14.5) % Plt Count 374 (130-400) K/uL MPV 9.7 (7.4-10.4) fL Immature Gran % (Auto) 0.3 % Neut % (Auto) 80.0 % Lymph % (Auto) 12.5 % [place] % (Auto) 7.0 % Eos % (Auto) 0.1 % Baso % (Auto) 0.1 % Immature Gran # (Auto) 0.04 H (0.00-0.02) K/uL Neut # (Auto) 9.86 H (1.4-6.5) K/uL Lymph # (Auto) 1.54 (1.2-3.4) K/uL [place] # (Auto) 0.86 H (0.11-0.59) K/uL Eos # (Auto) 0.01 (0-0.5) K/uL Baso # (Auto) 0.01 (0-0.2) K/uL Sodium 129 L (136-145) mmol/L Potassium 4.4 (3.5-5.1) mmol/L Chloride 91 L (98-107) mmol/L Carbon Dioxide 27 (21-32) mmol/L Anion Gap 11.0 (3-11) BUN 121 H (7-18) mg/dl Creatinine 3.51 H (0.6-1.2) mg/dl Est Cr Clr Drug Dosing Not Reportable Est GFR ( Amer) 13.6 Est GFR (Non-Af Amer) 11.7 BUN/Creatinine Ratio 34.6 H (10-20) Glucose 231 H (70-99) mg/dl POC Glucose (70-99) POC Lactic Acid Manuel (0.90-1.70) mmol/L Calcium 8.4 L (8.5-10.1) mg/dl Total Bilirubin 0.7 (0.2-1) mg/dl AST 27 (15-37) U/L ALT 28 (12-78) U/L Alkaline Phosphatase 94 (45-117) U/L Troponin I 0.060 H* (0-0.045) ng/ml Total Protein 7.8 (6.4-8.2) gm/dl Albumin 3.0 L (3.4-5.0) gm/dl Globulin 4.8 H (2.5-4.0) gm/dl Albumin/Globulin Ratio 0.6 L (0.9-2) Lipase 513 H (73-393) U/L TSH 1.570 (0.300-4.500) uIu/ml Urine Color Yellow Urine Appearance Turbid H (Clear) Urine pH 8.5 H (4.5-7.5) Ur Specific [place] 1.017 (1.000-1.030) Urine Protein 3+ H (Negative) Urine Glucose (UA) Negative (Negative) Urine Ketones Trace H (Negative) Urine Blood Negative (Negative) Urine Nitrite Negative (Negative) Urine Bilirubin Negative (Negative) Urine Urobilinogen Negative (Negative) Ur Leukocyte Esterase 3+ H (Negative) Urine WBC (Auto) >30 H (0-5) /hpf Urine RBC (Auto) 10-30 H (0-4) /hpf U Hyaline Cast (Auto) Not Reportable U Epithel Cells (Auto) >30 H (0-5) /lpf Urine Bacteria (Auto) 3+ H (Negative) Urine Mucus Present H (None Prsent) Urine Yeast Present H (None Prsent) 03/19/19 03/19/19 Range/Units 09:08 09:48 WBC (4.8-10.8) K/uL RBC (4.2-5.4) M/uL Hgb (12.0-16.0) g/dL Hct (37-47) % MCV (80-100) fL MCH (25-34) pg MCHC (32-36) g/dL RDW Std Deviation (36.4-46.3) fL RDW Coeff of Erick (11.5-14.5) % Plt Count (130-400) K/uL MPV (7.4-10.4) fL Immature Gran % (Auto) % Neut % (Auto) % Lymph % (Auto) % [place] % (Auto) % Eos % (Auto) % Baso % (Auto) % Immature Gran # (Auto) (0.00-0.02) K/uL Neut # (Auto) (1.4-6.5) K/uL Lymph # (Auto) (1.2-3.4) K/uL [place] # (Auto) (0.11-0.59) K/uL Eos # (Auto) (0-0.5) K/uL Baso # (Auto) (0-0.2) K/uL Sodium (136-145) mmol/L Potassium (3.5-5.1) mmol/L Chloride (98-107) mmol/L Carbon Dioxide (21-32) mmol/L Anion Gap (3-11) BUN (7-18) mg/dl Creatinine (0.6-1.2) mg/dl Est Cr Clr Drug Dosing Est GFR ( Amer) Est GFR (Non-Af Amer) BUN/Creatinine Ratio (10-20) Glucose (70-99) mg/dl POC Glucose 241 H (70-99) POC Lactic Acid Manuel 1.68 (0.90-1.70) mmol/L Calcium (8.5-10.1) mg/dl Total Bilirubin (0.2-1) mg/dl AST (15-37) U/L ALT (12-78) U/L Alkaline Phosphatase (45-117) U/L Troponin I (0-0.045) ng/ml Total Protein (6.4-8.2) gm/dl Albumin (3.4-5.0) gm/dl Globulin (2.5-4.0) gm/dl Albumin/Globulin Ratio (0.9-2) Lipase (73-393) U/L TSH (0.300-4.500) uIu/ml Urine Color Urine Appearance (Clear) Urine pH (4.5-7.5) Ur Specific [place] (1.000-1.030) Urine Protein (Negative) Urine Glucose (UA) (Negative) Urine Ketones (Negative) Urine Blood (Negative) Urine Nitrite (Negative) Urine Bilirubin (Negative) Urine Urobilinogen (Negative) Ur Leukocyte Esterase (Negative) Urine WBC (Auto) (0-5) /hpf Urine RBC (Auto) (0-4) /hpf U Hyaline Cast (Auto) U Epithel Cells (Auto) (0-5) /lpf Urine Bacteria (Auto) (Negative) Urine Mucus (None Prsent) Urine Yeast (None Prsent) Diagnostic Findings CT head/brain wo con CT DOSE: 638.56 mGycm HISTORY: Mental status change AMS TECHNIQUE: Multiaxial CT images of the head were performed without the use of intravenous contrast. A dose lowering technique was utilized adhering to the principles of ALARA. Comparison: None. Findings: The paranasal sinuses and mastoid air cells are clear. The calvarium and skull base are intact. The ventricles and sulci are within normal limits. There is no mass, hematoma, midline shift, or acute infarct. Age-related atrophy and chronic small vessel change Impression: No acute intracranial abnormality. Age-related atrophy and chronic small vessel change. The above report was generated using voice recognition software. It may contain grammatical, syntax or spelling errors. Electronically signed by: Lenard Nesbitt M.D. 03/19/2019 10:20 AM Dictated: 03/19/19 1019 Transcribed: 03/19/19 1019 ECG Additional Comments: EKG shows NSR at 80bpm, left axis deviation, -44, PG=749, DZS=873, YXc=443, + LVH, no acute ischemic changes Code Status & VTE Plan Code Status FULL VTE Prophylaxis Plan VTE Prophylaxis will be ordered: Yes Critical Care Time Critical Care Time: No (1) Altered mental status Altered mental status type: transient alteration of awareness Qualified Code(s): R40.4 - Transient alteration of awareness (2) UTI (urinary tract infection) Hematuria presence: without hematuria Urinary tract infection type: site unspecified Qualified Code(s): N39.0 - Urinary tract infection, site not specified (3) Diabetes mellitus Diabetes mellitus type: type 2 Diabetes mellitus aquatics lifeguard insulin use: with aquatics lifeguard use Diabetes mellitus complication status: without complication Qualified Code(s): E11.9 - Type 2 diabetes mellitus without complications; Z79.4 - half-way (current) use of insulin (4) Dementia Dementia type: unspecified type Dementia behavioral disturbance: without behavioral disturbance Qualified Code(s): F03.90 - Unspecified dementia without behavioral disturbance (5) Hypertension Hypertension type: essential hypertension Qualified Code(s): I10 - Essential (primary) hypertension
--- NOTE | 2019-03-19 12:04 | XRay Report ---
XR chest 1V portable CLINICAL HISTORY: weakness mental status change COMPARISON STUDY: 01/09/2018 FINDINGS: Stable emphysematous change. Atelectasis left base. Central catheter in superior vena cava. No focal infiltrate. IMPRESSION: Atelectasis left base. Emphysematous change. No acute process. The above report was generated using voice recognition software. It may contain grammatical, syntax or spelling errors. Electronically signed by: Lenard Nesbitt M.D. 03/19/2019 12:02 PM
--- NOTE | 2019-03-19 13:57 | Emergency Department Note ---
Entered by Kandis Pickett acting as a scribe for History of Present Illness General Chief complaint: Altered Mental Status Stated complaint: altered mental staus Time Seen by Provider: 03/19/19 08:56 Source: patient Mode of arrival: EMS Limitations: altered mental status History of Present Illness Onset (ago): unknown Location: head (altered mental status) Pain Consistency: + other (episode) Quality: + other (altered mental status) Associated symptoms: + confusion, + weakness (unspecific ) and + other (The patient complains of altered mental status. ); no chest pain and no fever/chills (The patient denies fever. ) The HPI is limited secondary to AMS. The patient is a 78 year old female who presents to the ED who presents from [facility] with complaints of an episode of altered mental status with an unknown last know well. The patient was supposed to receive an IVIG infusion today. She was difficult to arouse today and seemed more confused than normal. The patient has dementia and provides additional limited history. Per facility and daughter, the patient has been declining for several weeks. They note that she vomited over the weekend and her speech seemed somewhat slowed. The patient was minimally responsive in the van to [facility] for IVIG infusion but awoke with physical stimulation. She was brought here for evaluation. The patient complains of nonspecific weakness. She denies chest pain and fever. Home Medications Home Medications Medication Instructions Recorded Confirmed Type insulin lispro [Humalog U-100 10 unit SC TID #0 02/08/16 03/19/19 History Insulin] acetaminophen 650 mg PO Q6H PRN #0 08/21/16 03/19/19 History hydralazine 50 mg PO Q8 #0 01/08/17 03/19/19 History clonidine HCl 0.2 mg PO Q12 #0 03/05/17 03/19/19 History insulin detemir U-100 6 unit SUBCUT PM #0 08/20/17 03/19/19 History insulin detemir U-100 [Levemir 22 unit SC QAM #0 09/17/17 03/19/19 History U-100 Insulin] amlodipine 10 mg PO DAILY #0 01/09/18 03/19/19 History aspirin 81 mg PO DAILY #0 01/09/18 03/19/19 History bisacodyl 10 mg NE DAILY PRN #0 01/09/18 03/19/19 History magnesium hydroxide [Milk of 30 ml PO DAILY PRN #0 01/09/18 03/19/19 History Magnesia] mirtazapine [Remeron] 7.5 mg PO HS #0 01/09/18 03/19/19 History irbesartan [Avapro] 150 mg PO DAILY #0 06/25/18 03/19/19 History clonidine HCl 0.1 mg PO TID 08/20/18 03/19/19 History insulin lispro [Humalog U-100 1 sliding scale dose SUBCUT ACHS 08/20/18 03/19/19 History Insulin] sodium phosphates [Fleet Enema] 118 ml NE HS PRN 01/06/19 03/19/19 History Allergies Allergy/AdvReac Type Severity Reaction Status Date / Time mycophenolate mofetil Allergy Unknown unknown Verified 03/19/19 09:44 nortriptyline Allergy Unknown unknown Verified 03/19/19 09:44 gabapentin AdvReac Intermediate DOUBLE Verified 03/19/19 09:44 VISION, NAUSEA, VOMITING Past Med/Surg History Medical History Altered mental status Obesity Hyponatremia Hyperlipidemia Diabetes mellitus Failure to thrive Gait abnormality Chronic inflammatory demyelinating polyneuropathy Dementia Hypertensive urgency CHF (congestive heart failure) Type II diastolic dysfunction per echo 11/2016 Hypertension Surgical History History of cholecystectomy History of tonsillectomy Family History Other No pertinent family history Social History Preferred Language: [place] Verdean Communication Ability: Impaired Beliefs That Will Affect Care: None Current Living Situation: Retirement Current Living Situation Comment: [facility] Other Information That Helps Us Care for You: No Feels Safe at Home: Yes Safety Concerns: Feels Safe At This Time Smoking Status: Unknown if ever smoked Hx Alcohol Use: No Hx Substance Use: No Review of Systems See HPI for pertinent positives & negatives. Unobtainable due to cognitive status (AMS) Physical Exam Vital Signs Vital Signs - 24 hr 03/19/19 08:42 03/19/19 08:59 03/19/19 09:14 Temperature 36.5 C Temperature Source Oral Oral Sepsis Recent Fever Within 48 Hours No Sepsis Action Taken by Nursing No Action Required Pulse Rate 90 Pulse Rate [Finger] Pulse Rate from SpO2 Sensor Pulse Rhythm Regular Pulse Strength Normal Respiratory Rate 20 Respiratory Effort / Characteristics Non-Labored Spontaneous Respiratory Depth Normal Respiratory Pattern Regular Blood Pressure 72/51 L Blood Pressure [Right Arm] Blood Pressure Mean 58 Blood Pressure Mean [Right Arm] Blood Pressure Position Sitting Pulse Oximetry 93 96 Oxygen Delivery Method Room Air Room Air 03/19/19 09:30 03/19/19 09:47 03/19/19 09:49 Temperature Temperature Source Sepsis Recent Fever Within 48 Hours Sepsis Action Taken by Nursing Pulse Rate 81 81 Pulse Rate [Finger] Pulse Rate from SpO2 Sensor Pulse Rhythm Pulse Strength Respiratory Rate 14 16 Respiratory Effort / Characteristics Respiratory Depth Respiratory Pattern Blood Pressure 88/62 L Blood Pressure [Right Arm] Blood Pressure Mean 70 Blood Pressure Mean [Right Arm] Blood Pressure Position Pulse Oximetry 94 Oxygen Delivery Method Room Air 03/19/19 09:50 03/19/19 10:00 03/19/19 10:01 Temperature Temperature Source Sepsis Recent Fever Within 48 Hours Sepsis Action Taken by Nursing Pulse Rate 89 70 76 Pulse Rate [Finger] Pulse Rate from SpO2 Sensor Pulse Rhythm Pulse Strength Respiratory Rate 17 18 13 Respiratory Effort / Characteristics Respiratory Depth Respiratory Pattern Blood Pressure 111/86 Blood Pressure [Right Arm] Blood Pressure Mean 94 Blood Pressure Mean [Right Arm] Blood Pressure Position Pulse Oximetry Oxygen Delivery Method 03/19/19 10:57 03/19/19 10:58 03/19/19 11:00 Temperature Temperature Source Sepsis Recent Fever Within 48 Hours Sepsis Action Taken by Nursing Pulse Rate Pulse Rate [Finger] 75 Pulse Rate from SpO2 Sensor 76 81 Pulse Rhythm Pulse Strength Respiratory Rate 20 Respiratory Effort / Characteristics Respiratory Depth Respiratory Pattern Blood Pressure 134/113 H Blood Pressure [Right Arm] 134/113 H Blood Pressure Mean 120 Blood Pressure Mean [Right Arm] 120 Blood Pressure Position Pulse Oximetry 99 98 98 Oxygen Delivery Method Room Air 03/19/19 11:02 03/19/19 11:10 03/19/19 11:20 Temperature Temperature Source Sepsis Recent Fever Within 48 Hours Sepsis Action Taken by Nursing Pulse Rate Pulse Rate [Finger] Pulse Rate from SpO2 Sensor 74 76 78 Pulse Rhythm Pulse Strength Respiratory Rate Respiratory Effort / Characteristics Respiratory Depth Respiratory Pattern Blood Pressure 142/73 H Blood Pressure [Right Arm] Blood Pressure Mean 96 Blood Pressure Mean [Right Arm] Blood Pressure Position Pulse Oximetry 98 99 96 Oxygen Delivery Method 03/19/19 11:30 03/19/19 11:40 03/19/19 11:50 Temperature Temperature Source Sepsis Recent Fever Within 48 Hours Sepsis Action Taken by Nursing Pulse Rate Pulse Rate [Finger] Pulse Rate from SpO2 Sensor 77 74 70 Pulse Rhythm Pulse Strength Respiratory Rate Respiratory Effort / Characteristics Non-Labored Spontaneous Respiratory Depth Normal Respiratory Pattern Regular Blood Pressure 152/78 H Blood Pressure [Right Arm] Blood Pressure Mean 102 Blood Pressure Mean [Right Arm] Blood Pressure Position Pulse Oximetry 95 95 96 Oxygen Delivery Method Room Air 03/19/19 12:00 03/19/19 12:01 03/19/19 12:10 Temperature Temperature Source Sepsis Recent Fever Within 48 Hours Sepsis Action Taken by Nursing Pulse Rate Pulse Rate [Finger] Pulse Rate from SpO2 Sensor 74 74 80 Pulse Rhythm Pulse Strength Respiratory Rate Respiratory Effort / Characteristics Respiratory Depth Respiratory Pattern Blood Pressure 162/105 H Blood Pressure [Right Arm] Blood Pressure Mean 124 Blood Pressure Mean [Right Arm] Blood Pressure Position Pulse Oximetry 98 97 96 Oxygen Delivery Method 03/19/19 12:18 03/19/19 12:20 03/19/19 12:30 Temperature Temperature Source Sepsis Recent Fever Within 48 Hours Sepsis Action Taken by Nursing Pulse Rate Pulse Rate [Finger] 87 Pulse Rate from SpO2 Sensor 82 75 Pulse Rhythm Pulse Strength Respiratory Rate 20 Respiratory Effort / Characteristics Respiratory Depth Respiratory Pattern Blood Pressure Blood Pressure [Right Arm] 162/105 H Blood Pressure Mean Blood Pressure Mean [Right Arm] 124 Blood Pressure Position Pulse Oximetry 95 97 97 Oxygen Delivery Method Room Air 03/19/19 12:31 03/19/19 12:40 03/19/19 12:50 Temperature Temperature Source Sepsis Recent Fever Within 48 Hours Sepsis Action Taken by Nursing Pulse Rate Pulse Rate [Finger] Pulse Rate from SpO2 Sensor 77 84 82 Pulse Rhythm Pulse Strength Respiratory Rate Respiratory Effort / Characteristics Respiratory Depth Respiratory Pattern Blood Pressure 111/57 L Blood Pressure [Right Arm] Blood Pressure Mean 75 Blood Pressure Mean [Right Arm] Blood Pressure Position Pulse Oximetry 98 98 97 Oxygen Delivery Method 03/19/19 13:00 03/19/19 13:16 03/19/19 13:20 Temperature Temperature Source Sepsis Recent Fever Within 48 Hours Sepsis Action Taken by Nursing Pulse Rate 76 Pulse Rate [Finger] 76 Pulse Rate from SpO2 Sensor 91 H 88 75 Pulse Rhythm Pulse Strength Respiratory Rate 14 Respiratory Effort / Characteristics Respiratory Depth Respiratory Pattern Blood Pressure 134/112 H Blood Pressure [Right Arm] 134/112 H Blood Pressure Mean 119 Blood Pressure Mean [Right Arm] 119 Blood Pressure Position Pulse Oximetry 99 95 Oxygen Delivery Method Room Air 03/19/19 13:30 03/19/19 13:31 03/19/19 13:32 Temperature Temperature Source Sepsis Recent Fever Within 48 Hours Sepsis Action Taken by Nursing Pulse Rate 78 77 71 Pulse Rate [Finger] Pulse Rate from SpO2 Sensor 79 70 72 Pulse Rhythm Pulse Strength Respiratory Rate 17 18 9 L Respiratory Effort / Characteristics Respiratory Depth Respiratory Pattern Blood Pressure 74/49 L 78/38 L Blood Pressure [Right Arm] Blood Pressure Mean 57 51 Blood Pressure Mean [Right Arm] Blood Pressure Position Pulse Oximetry 95 98 98 Oxygen Delivery Method 03/19/19 13:36 Temperature Temperature Source Sepsis Recent Fever Within 48 Hours Sepsis Action Taken by Nursing Pulse Rate 76 Pulse Rate [Finger] Pulse Rate from SpO2 Sensor 70 Pulse Rhythm Pulse Strength Respiratory Rate 14 Respiratory Effort / Characteristics Respiratory Depth Respiratory Pattern Blood Pressure 86/54 L Blood Pressure [Right Arm] Blood Pressure Mean 64 Blood Pressure Mean [Right Arm] Blood Pressure Position Pulse Oximetry 98 Oxygen Delivery Method GENERAL: Awake, alert, in no distress HENT: Normocephalic, atraumatic. Oropharynx unremarkable. EYES: Normal conjunctiva. Sclera non-icteric. PERRL. NECK: Supple. No nuchal rigidity. RESPIRATORY: Clear to auscultation. No wheezes. Normal respiratory effort. CARDIAC: Normal rate. Normal rhythm. Extremities warm and well perfused. GI: Soft, non-distended. No tenderness to palpation. No rebound or guarding. No masses. RECTAL: Deferred. MUSCULOSKELETAL: Atraumatic. Chest examination reveals no tenderness. UPPER EXTREMITIES: Weakness in the bilaterally upper extremities. LOWER EXTREMITIES: Calves are equal size bilaterally and non-tender. No edema. Weakness in the bilaterally lower extremities. NEURO:No facial droop. Limited recall of events. Slow to answer questions. SKIN: Warm and dry. No rash or jaundice noted. Course 0905: Past medical records reviewed. The patient was evaluated in room B07. A complete history and physical examination was performed. 1037: [facility]. She will evaluate the patient for further management. 1041: I updated the patient's daughter via phone. Consultations Consultation #1: 1037: I reviewed the [facility]. She will evaluate the patient for further management. Administered Medications Discontinued Medications Sodium Chloride (Nss) 500 mls @ 999 mls/hr IV .Q31M CELINE Stop: 03/19/19 09:30 Last Infusion: 03/19/19 10:48 Dose: 0 mls/hr Documented by: [id number] Admin: 03/19/19 09:48 Dose: 999 mls/hr Documented by: [id number] Sodium Chloride (Nss) 500 mls @ 999 mls/hr IV .Q31M ONE Stop: 03/19/19 10:46 Last Infusion: 03/19/19 11:58 Dose: 0 mls/hr Documented by: [id number] Admin: 03/19/19 10:53 Dose: 999 mls/hr Documented by: [id number] Ceftriaxone Sodium (Rocephin) 1,000 mg in 50 mls @ 100 mls/hr IV NOW STA Stop: 03/19/19 10:45 Last Infusion: 03/19/19 11:58 Dose: 0 mls/hr Documented by: [id number] Admin: 03/19/19 10:53 Dose: 100 mls/hr Documented by: [id number] Cefepime HCl 1,000 mg/ Syringe 11.3 mls @ 5.5 mls/min IV NOW STA Stop: 03/19/19 10:36 Last Admin: 03/19/19 10:53 Dose: 5.5 mls/min Documented by: [id number] Medical Decision Making Differential Diagnosis Differential diagnoses: Metabolic, infection, hypo/hyperglycemia, electrolyte abnormalities, cardiac sources, intracerebral event, toxicologic, neurologic, as well as others were entertained. Medical Records Attestation: I reviewed the patient's medical records. Home Medications Current Medication List: was personally reviewed by me Laboratory Data Attestation: I reviewed the patient's lab results. Result diagrams: 03/19/19 09:02 03/19/19 09:02 Lab Results 03/19/19 03/19/19 03/19/19 Range/Units 09:02 09:02 09:02 WBC 12.32 H (4.8-10.8) K/uL RBC 4.14 L (4.2-5.4) M/uL Hgb 12.9 (12.0-16.0) g/dL Hct 36.5 L (37-47) % MCV 88.2 (80-100) fL MCH 31.2 (25-34) pg MCHC 35.3 (32-36) g/dL RDW Std Deviation 46.8 H (36.4-46.3) fL RDW Coeff of Erick 14.5 (11.5-14.5) % Plt Count 374 (130-400) K/uL MPV 9.7 (7.4-10.4) fL Immature Gran % (Auto) 0.3 % Neut % (Auto) 80.0 % Lymph % (Auto) 12.5 % [place] % (Auto) 7.0 % Eos % (Auto) 0.1 % Baso % (Auto) 0.1 % Immature Gran # (Auto) 0.04 H (0.00-0.02) K/uL Neut # (Auto) 9.86 H (1.4-6.5) K/uL Lymph # (Auto) 1.54 (1.2-3.4) K/uL [place] # (Auto) 0.86 H (0.11-0.59) K/uL Eos # (Auto) 0.01 (0-0.5) K/uL Baso # (Auto) 0.01 (0-0.2) K/uL Sodium 129 L (136-145) mmol/L Potassium 4.4 (3.5-5.1) mmol/L Chloride 91 L (98-107) mmol/L Carbon Dioxide 27 (21-32) mmol/L Anion Gap 11.0 (3-11) BUN 121 H (7-18) mg/dl Creatinine 3.51 H (0.6-1.2) mg/dl Est Cr Clr Drug Dosing Not Reportable Est GFR ( Amer) 13.6 Est GFR (Non-Af Amer) 11.7 BUN/Creatinine Ratio 34.6 H (10-20) Glucose 231 H (70-99) mg/dl POC Glucose (70-99) POC Lactic Acid Manuel (0.90-1.70) mmol/L Calcium 8.4 L (8.5-10.1) mg/dl Total Bilirubin 0.7 (0.2-1) mg/dl AST 27 (15-37) U/L ALT 28 (12-78) U/L Alkaline Phosphatase 94 (45-117) U/L Troponin I 0.060 H* (0-0.045) ng/ml Total Protein 7.8 (6.4-8.2) gm/dl Albumin 3.0 L (3.4-5.0) gm/dl Globulin 4.8 H (2.5-4.0) gm/dl Albumin/Globulin Ratio 0.6 L (0.9-2) Lipase 513 H (73-393) U/L TSH 1.570 (0.300-4.500) uIu/ml Urine Color Yellow Urine Appearance Turbid H (Clear) Urine pH 8.5 H (4.5-7.5) Ur Specific Cassel 1.017 (1.000-1.030) Urine Protein 3+ H (Negative) Urine Glucose (UA) Negative (Negative) Urine Ketones Trace H (Negative) Urine Blood Negative (Negative) Urine Nitrite Negative (Negative) Urine Bilirubin Negative (Negative) Urine Urobilinogen Negative (Negative) Ur Leukocyte Esterase 3+ H (Negative) Urine WBC (Auto) >30 H (0-5) /hpf Urine RBC (Auto) 10-30 H (0-4) /hpf U Hyaline Cast (Auto) Not Reportable U Epithel Cells (Auto) >30 H (0-5) /lpf Urine Bacteria (Auto) 3+ H (Negative) Urine Mucus Present H (None Prsent) Urine Yeast Present H (None Prsent) 03/19/19 03/19/19 Range/Units 09:08 09:48 WBC (4.8-10.8) K/uL RBC (4.2-5.4) M/uL Hgb (12.0-16.0) g/dL Hct (37-47) % MCV (80-100) fL MCH (25-34) pg MCHC (32-36) g/dL RDW Std Deviation (36.4-46.3) fL RDW Coeff of Erick (11.5-14.5) % Plt Count (130-400) K/uL MPV (7.4-10.4) fL Immature Gran % (Auto) % Neut % (Auto) % Lymph % (Auto) % [place] % (Auto) % Eos % (Auto) % Baso % (Auto) % Immature Gran # (Auto) (0.00-0.02) K/uL Neut # (Auto) (1.4-6.5) K/uL Lymph # (Auto) (1.2-3.4) K/uL [place] # (Auto) (0.11-0.59) K/uL Eos # (Auto) (0-0.5) K/uL Baso # (Auto) (0-0.2) K/uL Sodium (136-145) mmol/L Potassium (3.5-5.1) mmol/L Chloride (98-107) mmol/L Carbon Dioxide (21-32) mmol/L Anion Gap (3-11) BUN (7-18) mg/dl Creatinine (0.6-1.2) mg/dl Est Cr Clr Drug Dosing Est GFR ( Amer) Est GFR (Non-Af Amer) BUN/Creatinine Ratio (10-20) Glucose (70-99) mg/dl POC Glucose 241 H (70-99) POC Lactic Acid Manuel 1.68 (0.90-1.70) mmol/L Calcium (8.5-10.1) mg/dl Total Bilirubin (0.2-1) mg/dl AST (15-37) U/L ALT (12-78) U/L Alkaline Phosphatase (45-117) U/L Troponin I (0-0.045) ng/ml Total Protein (6.4-8.2) gm/dl Albumin (3.4-5.0) gm/dl Globulin (2.5-4.0) gm/dl Albumin/Globulin Ratio (0.9-2) Lipase (73-393) U/L TSH (0.300-4.500) uIu/ml Urine Color Urine Appearance (Clear) Urine pH (4.5-7.5) Ur Specific Cassel (1.000-1.030) Urine Protein (Negative) Urine Glucose (UA) (Negative) Urine Ketones (Negative) Urine Blood (Negative) Urine Nitrite (Negative) Urine Bilirubin (Negative) Urine Urobilinogen (Negative) Ur Leukocyte Esterase (Negative) Urine WBC (Auto) (0-5) /hpf Urine RBC (Auto) (0-4) /hpf U Hyaline Cast (Auto) U Epithel Cells (Auto) (0-5) /lpf Urine Bacteria (Auto) (Negative) Urine Mucus (None Prsent) Urine Yeast (None Prsent) Imaging Data Radiologist's Impression: Radiology results as stated below per my review and the radiologist's interpretation: XR chest 1V portable CLINICAL HISTORY: weakness mental status change COMPARISON STUDY: 01/09/2018 FINDINGS: Stable emphysematous change. Atelectasis left base. Central catheter in superior vena cava. No focal infiltrate. IMPRESSION: Atelectasis left base. Emphysematous change. No acute process. The above report was generated using voice recognition software. It may contain grammatical, syntax or spelling errors. Electronically signed by: Lenard Nesbitt M.D. 03/19/2019 12:02 PM Dictated: 03/19/19 1202 Transcribed: 03/19/[address] head/brain wo con CT DOSE: 638.56 mGycm HISTORY: Mental status change AMS TECHNIQUE: Multiaxial CT images of the head were performed without the use of intravenous contrast. A dose lowering technique was utilized adhering to the principles of ALARA. Comparison: None. Findings: The paranasal sinuses and mastoid air cells are clear. The calvarium and skull base are intact. The ventricles and sulci are within normal limits. There is no mass, hematoma, midline shift, or acute infarct. Age-related atrophy and chronic small vessel change Impression: No acute intracranial abnormality. Age-related atrophy and chronic small vessel change. The above report was generated using voice recognition software. It may contain grammatical, syntax or spelling errors. Electronically signed by: Lenard Nesbitt M.D. 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 Caregivers came today to take [facility] found her minimally responsive. Minimal response to sternal rub. More alert now but still altered according to staff. Reports that she is been declining. Hypotensive upon arrival. Afebrile. Not tachycardic. Did call the facility to obtain additional information is she is limited in this nature. Called the facility RN, Mica, who states that the advanced manufacturing technician called them and stated that she slumped over on the way to her infusion in the van and they had to shake her awake. States a gradual decline over the last several weeks. Daughter state slowed speech. Patient with slight leukocytosis. No lactate elevation. Urinalysis appears grossly positive. Additionally has evidence of acute kidney injury compared to previous likely prerenal. Hyponatremia is noted as well. Did receive a liter of IV fluid here. Given a dose of cefepime and discussed with hospitalist for admission. Impression & Plan UTI (urinary tract infection), Hyponatremia, Acute kidney injury, Elevated troponin Discharge Plan Visit Data Chief Complaint: Altered Mental Status Stated Complaint: altered mental staus ED Provider: Dmitry Barth ED Midlevel Provider: Amie Jorge Discharge Problem: UTI (urinary tract infection), Hyponatremia, Acute kidney injury, Elevated troponin Forms Stand Alone Forms: My [facility] Prescriptions Prescriptions: No Action insulin lispro [Humalog U-100 Insulin] 100 unit/mL Solution 10 unit SC TID Qty: 0 RF: 0 acetaminophen 325 mg Tablet 650 mg PO Q6H PRN (Reason: Mild pain, fever) Qty: 0 RF: 0 hydralazine 50 mg Tablet 50 mg PO Q8 Qty: 0 RF: 0 clonidine HCl 0.3 mg Tablet 0.2 mg PO Q12 Qty: 0 RF: 0 insulin detemir U-100 100 unit/mL Solution 6 unit SUBCUT PM Qty: 0 RF: 0 Levemir U-100 Insulin 100 unit/mL Solution 22 unit SC QAM Qty: 0 RF: 0 magnesium hydroxide [Milk of Magnesia] 400 mg/5 mL Suspension 30 ml PO DAILY PRN (Reason: Constipation) Qty: 0 RF: 0 amlodipine 10 mg Tablet 10 mg PO DAILY Qty: 0 RF: 0 bisacodyl 10 mg Suppository 10 mg NE DAILY PRN (Reason: constipation) Qty: 0 RF: 0 aspirin 81 mg Tablet,Chewable 81 mg PO DAILY Qty: 0 RF: 0 mirtazapine [Remeron] 15 mg Tablet 7.5 mg PO HS Qty: 0 RF: 0 irbesartan [Avapro] 150 mg Tablet 150 mg PO DAILY Qty: 0 RF: 0 clonidine HCl 0.1 mg Tablet 0.1 mg PO TID RF: 0 insulin lispro [Humalog U-100 Insulin] 100 unit/mL Solution 1 sliding scale dose SUBCUT ACHS RF: 0 Fleet Enema 19-7 gram/118 mL Enema 118 ml NE HS PRN (Reason: Constipation) RF: 0 Referrals Referrals: [place] [Primary Care Provider] - Discharge Problem: UTI (urinary tract infection) Qualifiers: Urinary tract infection type: site unspecified Hematuria presence: without hematuria Qualified Code(s): N39.0 - Urinary tract infection, site not specified The scribe's documentation has been prepared under my direction and personally reviewed by me in its entirety. I confirm that the note above accurately reflects all work, treatment, procedures, and medical decision making performed by me.
[2019-03-19] MEDS ORDERED: GLUCOSE 40% GEL 15 GM TUBE PO PRN (14:48)
[2019-03-19] MEDS ORDERED: CARBOHYDRATES FOR HYPOGLYCEMIA PO PRN (14:48)
[2019-03-19] MEDS ORDERED: BISACODYL 10 MG SUPP PR PRN (14:48)
[2019-03-19] MEDS ORDERED: DEXTROSE 50% 50 ML SYRINGE IV PRN (14:48)
[2019-03-19] MEDS ORDERED: VANCOMYCIN HCL 1,000 MG in SODIUM CHLORIDE 0.9% 250 ML IV SCH (14:48)
[2019-03-19] MEDS ORDERED: DOCUSATE SODIUM 100 MG CAP PO PRN (14:48)
[2019-03-19] MEDS ORDERED: GLUCAGON FOR INJ 1 MG VIAL SQ PRN (14:48)
[2019-03-19] MEDS ORDERED: GLUCOSE 10 TABS/TUBE PO PRN (14:48)
[2019-03-19] MEDS ORDERED: MAGNESIUM HYDROXIDE SUSP 30 ML UDC PO PRN (14:48)
[2019-03-19] MEDS ORDERED: ACETAMINOPHEN 325 MG TAB PO PRN ×2 (14:48)
[2019-03-19] MEDS ORDERED: DAPTOMYCIN CONSULT ACTIVE PRN (14:48)
[2019-03-19] MEDS ORDERED: cefTRIAXone SODIUM 1,000 MG in DEXTROSE 5% 50 ML IV ONE (15:00)
[2019-03-19 15:25] LABS: Base Excess VBG -1.1 mEq/L; HCO3 VBG 24 mmol/L; PCO2 VBG 40 mmHg (38-50); PO2 VBG 32 mmHg; pH VBG 7.39 (7.36-7.41)
[2019-03-19 15:26] LABS: Oxygen Saturation VBG < 60.0 %; Prothrombin Time 10.5 Seconds (9.0-12.0)
[2019-03-19] MEDS ORDERED: DAPTOmycin 375 MG in SYRINGE 0 ML IV SCH (15:30)
[2019-03-19 15:37] LABS: BUN Creatinine Ratio 38.3 (10-20); Calcium 7.8 mg/dl (8.5-10.1); Creatinine Clr Calc Pharmacy 16.1 ml/min; Est GFR (African American) 16.1; Est GFR (Non-African American) 13.9; Magnesium 2.6 mg/dl (1.8-2.4); Potassium 4.1 mmol/L (3.5-5.1)
[2019-03-19 15:40] LABS: Phosphorus 6.9 mg/dl (2.5-4.9)
[2019-03-19] MEDS: SODIUM CHLORIDE 0.9% 1000ML 1,000 ML IV SCH (16:25)
[2019-03-19] MEDS: INSULIN ASPART 100 UNITS/ML 3 ML PEN SC SCH ×3 (16:30→21:30)
[2019-03-19] MEDS: MIRTAZAPINE TAB 15 MG TAB PO SCH (21:28)
[2019-03-19] MEDS: INSULIN GLARGINE SOLOSTAR 100 UNITS/ML 3 ML PEN SC SCH (21:30)
[2019-03-19] MEDS: HEPARIN SOD 5,000 UNIT/0.5 ML VIAL SQ SCH (22:52)
[2019-03-20] MEDS: SODIUM CHLORIDE 0.9% 1000ML 1,000 ML IV SCH (00:31)
[2019-03-20 03:34] LABS: Creatinine Urine Random 61.1 mg/dl; Total Protein Urine Random 468.3 mg/dl (0-11.9)
[2019-03-20 04:31] LABS: Basophils # (auto) 0.02 K/uL (0-0.2); Basophils % (auto) 0.2 %; Eosinophils # (auto) 0.06 K/uL (0-0.5); Eosinophils % (auto) 0.6 %; Hematocrit (blood only) 32.2 % (37-47); Hemoglobin 11.3 g/dL (12.0-16.0); Immature Granulocytes # (auto) 0.03 K/uL (0.00-0.02); Immature Granulocytes % (auto) 0.3 %; Lymphocytes % (auto) 19.6 %; Mean Corpuscular Hgb Conc 35.1 g/dL (32-36); Mean Corpuscular Volume 88.5 fL (80-100); Mean Platelet Volume 9.3 fL (7.4-10.4); Monocytes # (auto) 0.62 K/uL (0.11-0.59); Monocytes % (auto) 6.1 %; Neutrophils # (auto) 7.48 K/uL (1.4-6.5); Neutrophils % (auto) 73.2 %; Platelet Count 344 K/uL (130-400); RDW Coefficient of Variation 14.4 % (11.5-14.5); RDW Standard Deviation 47.1 fL (36.4-46.3); Red Blood Count 3.64 M/uL (4.2-5.4); White Blood Count 10.21 K/uL (4.8-10.8)
[2019-03-20 04:51] LABS: BUN Creatinine Ratio 47.9 (10-20); Calcium 7.9 mg/dl (8.5-10.1); Creatinine Clr Calc Pharmacy 21.7 ml/min; Est GFR (Non-African American) 19.9; Potassium 3.6 mmol/L (3.5-5.1)
[2019-03-20] MEDS: HEPARIN SOD 5,000 UNIT/0.5 ML VIAL SQ SCH ×3 (05:31→21:36)
--- NOTE | 2019-03-20 07:09 | Ultrasound Report ---
US renal/blad retro comp CLINICAL HISTORY: 78 years-old Female presenting with CRYS, Mai catheter in place. TECHNIQUE: Real-time grayscale and limited color Doppler ultrasound imaging of the kidneys and bladde r was performed. COMPARISON: CT from 05/08/2011 and renal artery Doppler ultrasound from 01/12/2017. FINDINGS: Right kidney: Normal echogenicity though there is cortical thinning with relative expansion of renal sinus fat. Renal parenchyma has a thickness of 7 mm. The lower pole is obscured by overlapping bowel gas. Right kidney measures 10.1 cm. No hydronephrosis. No convincing evidence of calculus or mass. Left kidney: Similar degree of cortical thinning with expansion of renal sinus fat compatible with at rophy. Stool filled bowel noted anterior to the left kidney likely the descending colon. Left kidney measures 9.3 cm. No hydronephrosis. No convincing evidence of calculus or mass. Bladder: Decompressed with a Mai catheter. Bilateral ureteral jets not visualized. Other: None. IMPRESSION: 1. No hydronephrosis. 2. Bilateral renal parenchymal atrophy consistent with chronic medical renal disease. Electronically signed by: Karl Ibrahim M.D. 03/20/2019 7:07 AM
[2019-03-20] MEDS: INSULIN ASPART 100 UNITS/ML 3 ML PEN SC SCH ×4 (08:42→21:35)
[2019-03-20] MEDS: INSULIN GLARGINE SOLOSTAR 100 UNITS/ML 3 ML PEN SC SCH ×2 (08:42→21:35)
[2019-03-20] MEDS: ASPIRIN 81 MG ECTAB PO SCH (08:43)
[2019-03-20] MEDS: cefTRIAXone SODIUM 1,000 MG in DEXTROSE 5% 50 ML IV SCH (08:43)
[2019-03-20] MEDS ORDERED: cefTRIAXone SODIUM 2,000 MG in DEXTROSE 5% 50 ML IV SCH (09:00)
--- NOTE | 2019-03-20 10:46 | Nephrology Consultation ---
Date of Consultation March 20, 2019 Assessment & Plan (1) Acute kidney injury: -- Patient admitted w/ urosepsis. CRYS likely hemodynamically mediated. -- Urine sediment is c/w infection -- Renal US is negative for obstruction -- Hold ARB therapy -- Monitor serial PRP -- Volume status & electrolyte balance are acceptable at this time. No acute indication for HD (2) UTI (urinary tract infection): -- Urine cx + for proteus. Await sensitivities -- Antibiotic therapy (Ceftriaxone & Daptomycin) as per primary service (3) Hypertension: -- Hold ARB therapy due to CRYS -- Use IV hydralazine for BP management History of Present Illness Reason for Consultation: CRYS Attending Physician: Michael Sargent DO History of Present Illness Ms. Rodriguez is a 78 year old white female who is seen at the request of Dr. Sargent for evaluation of CRYS. Medical records in the EMR were reviewed and are summarized as follows: Ms. 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 She is a resident at [facility]. This morning she was noted to be increasingly lethargic. She was transferred to [facility] for evaluation. In the ED SBP was 70 - 80 mmHG. Creatinine was noted to have increased from baseline 1.0 to 3.5. Urinalysis was positive for pyuria, hematuria and bacteruria. Ms. Rodriguez was admitted for volume resuscitation, IV antibiotic therapy and management of CRYS Allergies Allergy/AdvReac Type Severity Reaction Status Date / Time mycophenolate mofetil Allergy Unknown unknown Verified 03/19/19 09:44 nortriptyline Allergy Unknown unknown Verified 03/19/19 09:44 gabapentin AdvReac Intermediate DOUBLE Verified 03/19/19 09:44 VISION, NAUSEA, VOMITING Home Medications Home Medications Medication Instructions Recorded Confirmed Type insulin lispro [Humalog U-100 10 unit SC TID #0 02/08/16 03/19/19 History Insulin] acetaminophen 650 mg PO Q6H PRN #0 08/21/16 03/19/19 History hydralazine 50 mg PO Q8 #0 01/08/17 03/19/19 History clonidine HCl 0.2 mg PO Q12 #0 03/05/17 03/19/19 History insulin detemir U-100 6 unit SUBCUT PM #0 08/20/17 03/19/19 History insulin detemir U-100 [Levemir 22 unit SC QAM #0 09/17/17 03/19/19 History U-100 Insulin] amlodipine 10 mg PO DAILY #0 01/09/18 03/19/19 History aspirin 81 mg PO DAILY #0 01/09/18 03/19/19 History bisacodyl 10 mg SD DAILY PRN #0 01/09/18 03/19/19 History magnesium hydroxide [Milk of 30 ml PO DAILY PRN #0 01/09/18 03/19/19 History Magnesia] mirtazapine [Remeron] 7.5 mg PO HS #0 01/09/18 03/19/19 History irbesartan [Avapro] 150 mg PO DAILY #0 06/25/18 03/19/19 History clonidine HCl 0.1 mg PO TID PRN 08/20/18 03/19/19 History insulin lispro [Humalog U-100 1 sliding scale dose SUBCUT ACHS 08/20/18 03/19/19 History Insulin] sodium phosphates [Fleet Enema] 118 ml SD HS PRN 01/06/19 03/19/19 History Patient History Medical History Altered mental status Obesity Hyponatremia Hyperlipidemia Diabetes mellitus Failure to thrive Gait abnormality Chronic inflammatory demyelinating polyneuropathy Dementia Hypertensive urgency CHF (congestive heart failure) Type II diastolic dysfunction per echo 11/2016 Hypertension Surgical History History of cholecystectomy History of tonsillectomy Family History Other No pertinent family history Social History Preferred Language: Vietnamese Communication Ability: Impaired Beliefs That Will Affect Care: None Current Living Situation: [facility] Current Living Situation Comment: [facility] Feels Safe at Home: Yes Smoking Status: Unknown if ever smoked Hx Alcohol Use: No Hx Substance Use: No Review of Systems Constitutional: no fever Respiratory: no dyspnea Cardiovascular: no chest pain Gastrointestinal: no abdominal pain and no diarrhea/loose stools Physical Exam Constitutional: + frail appearing Eyes: PERRL, conjunctivae normal, anicteric sclerae Neck: trachea midline, no thyromegaly Respiratory: normal respiratory effort, lungs clear to auscultation Cardiovascular: RRR, no murmur, no edema Gastrointestinal (Abdomen): normal bowel sounds, soft, nontender, no hepa tosplenomegaly Results & Data Vital Signs (Past 12 Hours) Vital Signs Temp Pulse Pulse Resp BP Pulse Ox 03/20/19 08:30 106 H 03/20/19 07:18 36.5 C 88 18 173/72 H 98 03/20/19 03:24 37.0 C 96 H 18 125/83 97 03/20/19 00:25 36.4 C L 94 H 18 156/73 H 96 03/19/19 23:15 95 H Laboratory Results Laboratory Tests 03/19/19 03/20/19 03/20/19 09:02 04:18 04:18 WBC 10.21 Hgb 11.3 L Hct 32.2 L Plt Count 344 Sodium 135 L Potassium 3.6 Chloride 104 Carbon Dioxide 21 BUN 109 H Creatinine 2.27 H D Glucose 170 H Urine Color Yellow Urine Appearance Turbid H Urine pH 8.5 H Ur Specific [place] 1.017 Urine Protein 3+ H Urine Glucose (UA) Negative Urine Ketones Trace H Urine Blood Negative Urine Nitrite Negative Ur Leukocyte Esterase 3+ H Urine WBC (Auto) >30 H Urine RBC (Auto) 10-30 H U Epithel Cells (Auto) >30 H Urine Bacteria (Auto) 3+ H Diagnostic Findings Renal US 03/20/19: R 10 cm, L 9.3 cm. No mass or hydronephrosis CXR 03/20/19: Atelectasis left base. Emphysematous change. No acute process. BLOOD CX: PENDING URINE CX: Proteus (1) UTI (urinary tract infection) Hematuria presence: without hematuria Urinary tract infection type: site unspecified Qualified Code(s): N39.0 - Urinary tract infection, site not specified
[2019-03-20] MEDS ORDERED: HydrALAZINE HCL 20 MG/ML VIAL IV PRN (11:15)
[2019-03-20] MEDS ORDERED: cloNIDine HCl 0.1 MG TAB PO SCH (14:00)
[2019-03-20] MEDS ORDERED: cloNIDine HCl 0.1 MG TAB PO PRN (14:00)
[2019-03-20 16:41] LABS: BUN Creatinine Ratio 55.4 (10-20); Calcium 8.9 mg/dl (8.5-10.1); Est GFR (African American) 39.6; Est GFR (Non-African American) 34.2; Potassium 3.5 mmol/L (3.5-5.1)
--- NOTE | 2019-03-20 19:43 | Family Medicine Progress Note ---
Date of Service March 20, 2019 Assessment & Plan (1) Acute kidney injury: 78 yo F with h/o DM on insulin, chronic inflammatory demyelinating polyneuropathy for which she receives monthly IVIG infusions presenting with episode of altered mental status/ sepsis in setting of hypotension found to have CRYS , UTI Acute kidney injury: - CRYS likely due to Prerenal vs ATN in setting of significant hypotension -renal ultrasound consistent with chronic atrophy -Check urine protein/Cr ratio7.7 -NSS discontinued, Patient has history of Grade II diastolic dysfunction -Per nephrology reccs, Irbesartan held, input appreciated Altered mental status: likely in setting on sepsis, profound hypotension -mental status improving - Ceftriaxone continued, Daptomycin discontinued - follow culture at 48 hrs Hyponatremia: Mild hyponatremia, Dp=187. Most likely secondary to volume contraction/dehydration. - appears chronic - likely secondary to volume overload - Given fluids, Continue to monitor (4) Elevated troponin: asx, likely due to hypotension, CRYS - ischemia unlikely -Continue ASA -Telemetry monitoring (5) UTI (urinary tract infection): -Empiric antibiotic coverage with Ceftriaxone -culture growing proteus, await sensitivities -Follow daily CBC;s (6) Diabetes mellitus: -Lantus 10u BID -ISS -Continue to monitor blood sugars (7) Hypertension: -Patient with severe HTN. +LVH noted on echo and on EKG. Hypotensive on arrival which improved with IVF -Continue Amlodipine 10mg po daily -Continue Clonidine 0.2mg po BID and 0.1mg po TID PRN -Continue Hydralazine 50mg po TID -Hold Irbesartan in setting of CRYS - IV Hydralazine prn (8) CIDP (chronic inflammatory demyelinating polyneuropathy): Chronic. Stable. - hold IV IG at this time Dementia/Depression -Patient with baseline dementia. -Continue mirtazapine DVT Ppx: heparin (2) Altered mental status: (3) Hyponatremia: (4) Elevated troponin: (5) UTI (urinary tract infection): (6) Diabetes mellitus: (7) Chronic inflammatory demyelinating polyneuropathy: (8) Dementia: (9) DVT prophylaxis: Supervising Physician Co-Signing Physician Notes Patient seen and examined with Dr. Castaneda. Agree with documented history, exam, assessment and plan of care. In brief, Ms Rodriguez is 78 year old female with DM (on insulin), chronic inflammatory demyelinating polyneuropathy on IVIG monthly, dementia at baseline who had an episode of unresponsiveness followed by confusion. She is admitted for altered mental status following the unresponsive episode, hypotension, AMS. Patient from [facility]. 1. Sepsis secondary to urinary tract infection. BPs are improved, mental status improving. Leukocytosis resolving 12?10. Stop Dapto as MRSA negative. 2. Urinary tract infection. Growing Proteus. Continue ceftriaxone. Follow for sensitivities. 3. CRYS. Improving. Secondary to volume depletion. BUN 121/Cr 3.51 on admission?BUN 109/Cr2.27?BUN 80/Cr1.45. Previous Cr 0.99 in January. I/Os, renal ultrasoundbilateral renal parenchymal atrophy c/w chronic renal disease. FeNa 1.7. BMP BID. NS at 125/h x 2L. Hx of HFpEF. 4. AMS. Likely due to volume depletion/hyponatremia/sepsis. 5. hyponatremia. Na 132 on admission?135. Improving. Due volume depletion. 6. Elevated trop at 0.06?0.049. EKG without ischemic changes. Likely due to demand ischemia as she was hypotensive on arrival. CCM. 7.DM. A1C 5 in October. Home levamir 22u qAM and 5u qPM, humalong 10u TID with sliding scale. Switch to lantus 10u BID with sliding scale. Monitor carefully for hypoglycemia. Goal A1C should be 7.5-8. 8. hx HTN (hypotensive episode resolved with IVFs). Restarted home amlodipine 10mg, clonidine 0.2mg BID and 0.1mg TID PRN, holding home hydralazine 50mg TID, but would restart if BPs start to creep up. Holding ibersartan for now until Cr improves. 8.CIDP. chronic. Stable. Reschedule infusion for after hospital discharge. 9. Aspiration. Seen by speech. Soft bite size diet with nectar thick liquids, aspiration precautions. Consider video swallow prior to discharge to clarify diet/swallowing abilities. Dispo: pending clinical improvement. PT/OT. Plan at this point to discharge back to SNF when medically able. Subjective Hypotension resolved overnight. patient reported she was feeling improved from arrival She denied fever, chills, history of urinary symptoms, abdominal pain, diarrhea, cough ,sob. Her recollection of why she came in wasnt entirely clear Review of Systems Constitutional: + weakness; no fever, no chills and no fatigue Respiratory: no cough, no dyspnea and no wheezing Cardiovascular: no chest pain, no palpitations and no edema Gastrointestinal: no abdominal pain, no nausea, no vomiting and no change in stools Genitourinary: no dysuria, no urinary frequency and no urinary urgency Results & Data Vital Signs (Past 12 Hours) Vital Signs Temp Pulse Pulse Resp BP Pulse Ox 03/20/19 15:29 36.6 C 107 H 20 156/87 H 97 03/20/19 11:06 36.7 C 93 H 15 155/73 H 98 03/20/19 08:30 106 H Resident Activity Tracking Resident Involvement: Resident Care Provided Care Provided: Adult Hospital Medicine (1) UTI (urinary tract infection) Hematuria presence: without hematuria Urinary tract infection type: site unspecified Qualified Code(s): N39.0 - Urinary tract infection, site not specified (2) Diabetes mellitus Diabetes mellitus complication status: without complication Diabetes 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
[2019-03-20] MEDS: cloNIDine HCl 0.1 MG TAB PO SCH (20:21)
[2019-03-20] MEDS: MIRTAZAPINE TAB 15 MG TAB PO SCH (20:22)
[2019-03-21 04:46] LABS: BUN Creatinine Ratio 61.2 (10-20); Calcium 8.5 mg/dl (8.5-10.1); Creatinine Clr Calc Pharmacy 44.8 ml/min; Est GFR (African American) 55.3; Est GFR (Non-African American) 47.7; Potassium 3.4 mmol/L (3.5-5.1)
[2019-03-21] MEDS: HEPARIN SOD 5,000 UNIT/0.5 ML VIAL SQ SCH ×3 (06:29→21:12)
[2019-03-21] MEDS: INSULIN ASPART 100 UNITS/ML 3 ML PEN SC SCH ×5 (07:49→22:19)
[2019-03-21] MEDS: cefTRIAXone SODIUM 1,000 MG in DEXTROSE 5% 50 ML IV SCH (07:50)
[2019-03-21] MEDS: cloNIDine HCl 0.1 MG TAB PO SCH ×2 (07:51→21:10)
[2019-03-21] MEDS: AMLODIPINE BESYLATE 5 MG TAB PO SCH (07:51)
[2019-03-21] MEDS: ASPIRIN 81 MG ECTAB PO SCH (07:51)
[2019-03-21] MEDS: INSULIN GLARGINE SOLOSTAR 100 UNITS/ML 3 ML PEN SC SCH ×2 (07:52→21:12)
[2019-03-21 07:54] LABS: Basophils # (auto) 0.03 K/uL (0-0.2); Basophils % (auto) 0.4 %; Eosinophils # (auto) 0.05 K/uL (0-0.5); Eosinophils % (auto) 0.6 %; Hematocrit (blood only) 34.8 % (37-47); Hemoglobin 12.3 g/dL (12.0-16.0); Immature Granulocytes # (auto) 0.03 K/uL (0.00-0.02); Immature Granulocytes % (auto) 0.4 %; Lymphocytes # (auto) 1.86 K/uL (1.2-3.4); Mean Corpuscular Hgb Conc 35.3 g/dL (32-36); Mean Platelet Volume 9.2 fL (7.4-10.4); Monocytes # (auto) 0.55 K/uL (0.11-0.59); Monocytes % (auto) 6.5 %; Neutrophils # (auto) 5.94 K/uL (1.4-6.5); Neutrophils % (auto) 70.1 %; Platelet Count 370 K/uL (130-400); RDW Coefficient of Variation 14.4 % (11.5-14.5); RDW Standard Deviation 46.9 fL (36.4-46.3); Red Blood Count 3.91 M/uL (4.2-5.4); White Blood Count 8.46 K/uL (4.8-10.8)
--- NOTE | 2019-03-21 10:10 | Neurology Consultation ---
Date of Consultation March 21, 2019 Assessment & Plan (1) CIDP (chronic inflammatory demyelinating polyneuropathy): Patient has a 20 year history of chronic inflammatory demyelinating polyneuropathy treated every 28 days with IVIG. She has been doing very well on this regimen. Currently she is very weak comma much weaker than usual, and she is now day 31 since her last infusion. She has areflexia comma diffuse severe weakness, and sensory deficits from this condition (2) Altered mental status: Patient had acute encephalopathy on admission likely multifactorial. This would include increased confusion from urinary tract infection (no signs of growth in blood cultures so far), hypotension, and acute renal failure mostly from dehydration. Her sodium of 129 was not low enough to directly cause encephalopathy. With her underlying dementia she would be more easily put into an encephalopathy with these various infectious, metabolic and hemodynamic issues. (3) Dementia: Patient has a [id number] underlying dementia likely of mixed origin including vascular. This has been fairly stable over time. Recommendations: 1. Gamunex C, 60 grams, run in over 4-5 hours, given both today and tomorrow, as per she usually gets. 2. Increase activity as able and consider physical and occupational therapy. 3. Continue treating infection and hydrating following renal status. Overall, I spent a total of 120 minutes with this case including review of records, direct evaluation the patient at bedside, discussion of the case with the patient at bedside, nursing staff, and Drs. Gonzalez and Tonya, including differential diagnosis and treatment options. History of Present Illness Reason for Consultation: Patient is a 78-year-old, who I was asked to see the request of Dr. Castaneda, for neurologic consultation regarding weakness and confusion. Requesting Physician: Dr. Castaneda Attending Physician: Thom Gonzalez MD History of Present Illness I 1st saw this patient in April of 2011, as she came for continued management of chronic inflammatory demyelinating polyneuropathy. She 1st started getting symptoms of weakness numbness and tingling in 1999 and eventually went to [facility] and after extensive evaluation was diagnosed with CIDP. She has been receiving IVIG every 28 days ever since. At about 24 or 5 days she starts getting noticeably weaker so that by the time the 28 day come she needs the medication to keep her strength. When doing well her balance is still poor as she still has weakness and numbness and she uses a walker for support. Since 2014 she has been at [facility]. I last saw her as an outpatient in April of 2018 and she was quite stable. She receives Gamunex C, 10 grams per 100 mL , 60 grams run in over 4-5 hours each day for 2 days every 28 days. Patient also has a longstanding history of insulin-dependent diabetes mellitus, hypertension, dyslipidemia, obstructive sleep apnea, and vitamin-D deficiency. Over the last 5 years she has had cognitive issues and has a mild cognitive impairment which is likely a mix of aging and vascular changes. Over the last several weeks the patient has been declining. She has been a little more weak and slow and confused. Several days prior to admission she vomited. By March 19, the patient was very weak and very confused. She was due for IVIG that day. She was taken to the emergency room. On March 19, at 0842 blood pressure was 72/51, temperature 36.5, pulse 90, respiratory rate 20, O2 saturation 93 percent. She was awake and alert but slow and confused. She could not recall any events. She was generally weak but there were no focal neurologic deficits. White count was elevated at 12 with increased neutrophils, with a normal hemoglobin and hematocrit. Chem profile showed a sodium of 129 a BUN of 121 and a creatinine of 3.51. Glucose was 231. TSH was normal at 1.5 Urine was cloudy with increased white cells. It grew out greater than 100,000 Proteus mirabilis. Blood cultures are no growth so far. Chest x-ray showed mild emphysema and left base atelectasis with no acute changes. CT scan of the head showed no acute changes but there was some old small vessel ischemic disease seen Patient saw nephrology in consultation who felt this was mostly azotemia. Today CBC is 8.4 and sodium is normal at 138. BUN is 67 and creatinine 1.1. Glucose is 196. She has had less confusion since admission. She still does recall events of why she got into the hospital but she is more alert and able to answer questions. She feels very weak in general. She has some low back pain but no headache or limb pain. She has no vision problems, swallowing, or breathing problems. Allergies Allergy/AdvReac Type Severity Reaction Status Date / Time mycophenolate mofetil Allergy Unknown unknown Verified 03/19/19 09:44 nortriptyline Allergy Unknown unknown Verified 03/19/19 09:44 gabapentin AdvReac Intermediate DOUBLE Verified 03/19/19 09:44 VISION, NAUSEA, VOMITING Home Medications Home Medications Medication Instructions Recorded Confirmed Type insulin lispro [Humalog U-100 10 unit SC TID #0 02/08/16 03/19/19 History Insulin] acetaminophen 650 mg PO Q6H PRN #0 08/21/16 03/19/19 History hydralazine 50 mg PO Q8 #0 01/08/17 03/19/19 History clonidine HCl 0.2 mg PO Q12 #0 03/05/17 03/19/19 History insulin detemir U-100 6 unit SUBCUT PM #0 08/20/17 03/19/19 History insulin detemir U-100 [Levemir 22 unit SC QAM #0 09/17/17 03/19/19 History U-100 Insulin] amlodipine 10 mg PO DAILY #0 01/09/18 03/19/19 History aspirin 81 mg PO DAILY #0 01/09/18 03/19/19 History bisacodyl 10 mg [place] DAILY PRN #0 01/09/18 03/19/19 History magnesium hydroxide [Milk of 30 ml PO DAILY PRN #0 01/09/18 03/19/19 History Magnesia] mirtazapine [Remeron] 7.5 mg PO HS #0 01/09/18 03/19/19 History irbesartan [Avapro] 150 mg PO DAILY #0 06/25/18 03/19/19 History clonidine HCl 0.1 mg PO TID PRN 08/20/18 03/19/19 History insulin lispro [Humalog U-100 1 sliding scale dose SUBCUT ACHS 08/20/18 03/19/19 History Insulin] sodium phosphates [Fleet Enema] 118 ml [place] HS PRN 01/06/19 03/19/19 History Patient History Medical History Altered mental status Obesity Hyponatremia Hyperlipidemia Diabetes mellitus Failure to thrive Gait abnormality Chronic inflammatory demyelinating polyneuropathy Dementia Hypertensive urgency CHF (congestive heart failure) Type II diastolic dysfunction per echo 11/2016 Hypertension Surgical History History of cholecystectomy History of tonsillectomy Family History Other No pertinent family history Social History Preferred Language: Mongolian Communication Ability: Unable Beliefs That Will Affect Care: None Current Living Situation: Senior Living Current Living Situation Comment: [facility] current occupational status: retired 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 Feels Safe at Home: Yes Smoking Status: Never smoker Hx Alcohol Use: No Hx Substance Use: No Review of Systems Constitutional: + weakness; no fever and no fatigue Eyes: no diplopia, no eye pain and no worsening vision Ear, Nose, Mouth, Throat: no ear pain, no tinnitus, no hearing loss and no dysphagia Respiratory: no cough and no dyspnea Cardiovascular: no chest pain, no dyspnea and no palpitations Gastrointestinal: no abdominal pain, no nausea and no vomiting Genitourinary: no dysuria, no urinary frequency and no urinary incontinence Musculoskeletal: + back pain and + muscle weakness; no neck pain, no radicular pain, no myalgia and no muscle atrophy Integumentary: no rash and no lesions Neurologic: + gait abnormality, + generalized weakness, + loss of sensation, + numbness, + confusion and + memory loss; no falls, no localized weakness, no tingling, no tremor(s), no abnormal movements, no dizziness, no headache(s), no abnormal speech and no behavioral changes Psychiatric: + confusion; no depression, no abnormal sleep pattern, no anxiety, no difficulty concentrating and no hallucinations Endocrine: no fatigue and no flushing Hematologic / Lymphatic: no easy bleeding and no easy bruising Allergy / Immunological: no urticaria Physical Exam Physical Exam: The patient is right-handed. The patient is awake, alert, and attentive. Speech is normal without any aphasia or dysarthria. She remembers the year fact that she is in the hospital and name the hospital. She remembered me and stated my name. She did not know the month or the date or her age (76).. She cannot recall any details regarding her medical illness that put her in the hospital. Her mood was good in her affect was appropriate. The discs are sharp with positive venous pulsations bilaterally. There are no exudates, hemorrhages, or blood vessel changes seen. Pupils are 4 mm bilaterally and reactive to light. Extraocular eye muscles are intact without nystagmus. Visual acuity and visual narvaez seem normal grossly to confrontation. There are no deficits to sensation in the face in all 3 distributions of the fifth cranial nerve bilaterally. Corneal reflexes are positive bilaterally. Facial strength and symmetry was normal bilaterally. Hearing seems intact grossly to voice and finger rub bilaterally. Palate moves well without asymmetry. There is normal sternocleidomastoid and trapezius (shoulder shrug) strength bilaterally. Tongue is midline with good strength bilaterally. Neck has a full range of motion without discomfort. There are no cervical bruits bilaterally. There are no cranial or ocular bruits. Heart is without murmur. There is a regular rhythm and rate. Cervical, thoracic, and lumbar spine are nontender to palpation. Gait cannot be tested due to her diffuse weakness. She cannot hold herself up sitting up in bed because of truncal weakness also. With outstretched arms there is no drift, but she cannot hold her arms up due to proximal muscle weakness. There are no resting, postural, or action tremors. There is no ataxia with finger to nose testing although this is difficult. There is reasonable facility in the hands. No other abnormal involuntary movements are noted. Motor strength is 3/5 diffusely in the arms bilaterally including deltoids, biceps, triceps, brachioradialis, wrist flexors and extensors, machine hose cutter, and intrinsic hand muscles. Motor strength is 2/5 proximally in the legs bilaterally including hip flexors, quadriceps, and hamstring muscles. Distally, including tibialis anterior, tibialis posterior, peroneii, and gastrocnemius muscles are 3/5 bilaterally. The limbs have good tone without rigidity or spasticity. There is no atrophy noted in the muscles. Muscle bulk is normal, there is no tenderness to palpation, no myotonia to percussion, and no fasciculations seen. Sensory examination reveals decreased sensation and vibration bilaterally in the limbs Reflexes are 0/4 in the biceps, triceps, brachioradialis, quadriceps, and Achilles tendons bilaterally. Toes are downgoing with plantar stimulation bilaterally. Peripheral pulses are present and of normal quality distally in all 4 limbs. There is no peripheral edema noted in the limbs. Results & Data Vital Signs (Past 12 Hours) Vital Signs Temp Pulse Pulse Resp BP Pulse Ox 03/21/19 06:45 36.5 C 100 H 16 182/105 H 96 03/21/19 04:04 36.9 C 97 H 22 154/87 H 96 03/21/19 00:40 36.3 C L 73 16 155/97 H 98 03/20/19 22:20 92 H (1) Altered mental status Altered mental status type: transient alteration of awareness Qualified Code(s): R40.4 - Transient alteration of awareness (2) Dementia Dementia type: unspecified type Dementia behavioral disturbance: without behavioral disturbance Qualified Code(s): F03.90 - Unspecified dementia without behavioral disturbance
[2019-03-21] MEDS ORDERED: OR MISCELLANEOUS MED SCH (10:30)
[2019-03-21] MEDS: IMMUNE GLOB-GAMUNEX HUMAN 200 ML IV SCH ×3 (12:10→15:58)
--- NOTE | 2019-03-21 12:53 | Progress Note ---
DATE: 03/21/2019 RENAL PROGRESS NOTE SUBJECTIVE: Mrs. Rodriguez is a 78-year-old woman that was admitted with a urinary tract infection and evidence of possible sepsis. In association with that, she had an acute elevation of her serum creatinine to 3.51 mg/dL. Her baseline was 0.99 mg/dL, which was in January of this year. She has been shown that changes on urinalysis consistent with a urinary tract infection. Her urine did grow out Proteus mirabilis, which was sensitive to the ceftriaxone that she is taking. It was resistant only to ciprofloxacin and levofloxacin. She has not had any recent shaking chills. She has had no sweats. She says that her appetite is returning, but she has not had anything to eat yet other than some clear liquids. She has no nausea. She has no chest pain or shortness of breath. She has a Mai catheter in and has not had any significant problems with suprapubic discomfort. Her neurologic history is summarized by Dr. Rodrick Frias in his notes. OBJECTIVE: GENERAL: On physical exam, Mrs. Rodriguez appears as a somewhat chronically ill woman who did not appear to be in any distress. She was oriented to time, place and person. VITAL SIGNS: Today at the time seen by me showed a blood pressure of 144/82, her pulse 90 and regular, respiratory rate 18, her pulse ox 99% on room air. She was afebrile (36.6 degrees centigrade). SKIN: Shows normal skin turgor. There is no obvious rash or infiltrative skin disease. She has no palpable lymphadenopathy. HEAD: Normal. EYES: Grossly normal. The ocular fundi were not examined. EARS, NOSE, MOUTH AND THROAT: Unremarkable. Her oral mucous membranes are moist. NECK: Supple. She has no jugular venous distention, carotid bruit or thyromegaly. CHEST: Clear to auscultation. I hear no wheezes, rales or rhonchi. CARDIAC: Shows a regular rhythm. I hear no murmur or gallop. ABDOMEN: Nontender. She has no obvious organomegaly or mass. Bowel sounds are normal. I hear no abdominal bruits. EXTREMITIES: Show no cyanosis or clubbing. She has trace lower extremity edema. NEUROLOGIC: Shows her to be a bit slow and lethargic, but she has no focal neurologic changes, although she is globally weak and has a decrease in light touch and vibratory sensation in her hands and lower extremities. Deep tendon reflexes were not tested. PERTINENT LABORATORY WORK: From today shows a white blood cell count down to 8460 with a normal differential. Her hemoglobin is 12.3 with a hematocrit of 34.8. Red cell indices are normal. Platelet count is 370,000. Her clinical chemistries from today show a sodium of 138 mmol/L, potassium 3.4 mmol/L, chloride of 109 mmol/L, and CO2 content of 23 mmol/L. Her BUN is down to 67 mg/dL and her creatinine down to 1.10 mg/dL. Other chemistries include blood sugars that have varied from about 160-196. Her serum calcium was 8.5. She did have a bilateral renal ultrasound done yesterday, which showed no evidence of an obstructive uropathy. She does have some degree of bilateral parenchymal atrophy consistent with chronic medical renal disease. ASSESSMENT: Mrs. Rodriguez appears to be significantly improved with treatment of her urinary tract infection as well as rehydration. Other changes that were made at the time of her admission were to hold her ARB therapy. I would continue to hold for now. RECOMMENDATIONS: Continue with gentle hydration either orally or intravenously. Continue to track her renal function over the next 24-48 hours. Continue with IV antibiotics at least for today and can then gradually make a transition to oral antibiotics as tolerated. Her ARB can be resumed if her blood pressure starts to go up. However, if it uses associated with any decline in her renal function, it should be held and she should have a bilateral renal artery duplex at a minimum for evaluation of renal artery stenosis. We will continue to follow.
--- NOTE | 2019-03-21 14:55 | Family Medicine Progress Note ---
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 presenting with episode of altered mental status/ sepsis in setting of hypotension found to have CRYS , UTI Acute kidney injury: - CRYS likely due to Prerenal vs ATN in setting of significant hypotension -renal ultrasound consistent with chronic atrophy -Check urine protein/Cr ratio7.7 -NSS discontinued previously, Patient has history of Grade II diastolic dysfunction -Per nephrology reccs, Irbesartan held, input appreciated Altered mental status: - significant improvement in mental status - likely secondary to sepsis in the setting if UTI, sppears to have responded to antibiotics - Ceftriaxone continued, Daptomycin discontinued previously - follow culture at 48 hrs Hyponatremia: - Mild hyponatremia, appears chronic, likely not a factor in mental status change - likely secondary to volume overload - Continue to monitor (4) Elevated troponin: asx, likely due to hypotension, CRYS - ischemia unlikely given low troponin, trended down, lack of cardiac symptoms - Continue ASA - Telemetry monitoring (5) UTI (urinary tract infection): -Empiric antibiotic coverage with Ceftriaxone -Cx positive for Proteus -Follow daily CBC's (6) Diabetes mellitus: -Lantus 10u BID -ISS -Continue to monitor blood sugars (7) Hypertension: -Continue to monitor +LVH noted on echo and on EKG. -Continue Amlodipine 10mg po daily -Continue Clonidine 0.2mg po BID and 0.1mg po TID PRN -Continue Hydralazine 50mg po TID -Hold Irbesartan in setting of CRYS - IV Hydralazine prn (8) CIDP (chronic inflammatory demyelinating polyneuropathy): Chronic. Stable. - appreciate neurology recommendation - Start IV IG 60 mg daily x 2 days Dementia/Depression -Patient with baseline dementia. -Continue mirtazapine DVT Ppx: heparin (2) Altered mental status: (3) Hyponatremia: (4) Elevated troponin: (5) UTI (urinary tract infection): (6) Diabetes mellitus: (7) Chronic inflammatory demyelinating polyneuropathy: (8) Dementia: (9) DVT prophylaxis: Supervising Physician Co-Signing Physician Notes Attending attestation Pt seen and examined in concert with Dr. Castaneda. In agreement with the documented findings as noted in the resident documentation with any exceptions or additions as noted here. Pt resting comfortably in bed with persistent fatigue. Oriented to self, place and time. Metabolic encephalopathy in the setting of UTI - continue ceftriaxone, d/c daptomycin. CIDP - start IVIG therapy today, consult PT/OT CRYS - considerable improvement - trend BMP, hydration DMII - continue glargine HTN - continue amlodipine, clonidine. Holding irbesartan 2/2 CRYS Hyponatremia - returned to baseline Elevated troponin - resolved Subjective Patient overall appears to be improving. Mental status has improved. She denies pain, fever, chills, n/v cough, abdominal pain, diarrhea. She is eating and passing normal bowel movements. Review of Systems Constitutional: + weakness; no fever and no chills Respiratory: no cough, no dyspnea and no wheezing Cardiovascular: no chest pain, no palpitations, no edema and no calf pain Gastrointestinal: no abdominal pain, no nausea, no vomiting and no change in stools Integumentary: no rash, no lesions and no change in skin color Physical Exam Physical Exam: GENERAL APPEARANCE: alert/oriented x 3 (mental status significantly improved), and appears to be in no acute distress. HEAD: normocephalic. EYES: PERRL, EOMI, vision is grossly intact. CARDIAC: Normal S1 and S2. No S3, S4 or murmurs. Rhythm is regular LUNGS: Clear to auscultation and percussion without rales, rhonchi, wheezing or diminished breath sounds. ABDOMEN: Positive bowel sounds. Soft, nondistended, nontender. No guarding or rebound. No masses. LOWER EXTREMITY: no edema NEUROLOGICAL: CN II-XII grossly intact. moves extremities Results & Data Vital Signs (Past 12 Hours) Vital Signs Temp Pulse Pulse Resp BP Pulse Ox 03/21/19 11:23 36.6 C 90 18 144/82 H 99 03/21/19 08:00 54 L 03/21/19 06:45 36.5 C 100 H 16 182/105 H 96 03/21/19 04:04 36.9 C 97 H 22 154/87 H 96 (1) UTI (urinary tract infection) Hematuria presence: without hematuria Urinary tract infection type: site unspecified Qualified Code(s): N39.0 - Urinary tract infection, site not specified (2) Diabetes mellitus Diabetes mellitus complication status: without complication Diabetes mellitus nursing home insulin use: with nursing home use Diabetes mellitus type: type 2 Qualified Code(s): E11.9 - Type 2 diabetes mellitus without complications; 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
[2019-03-21 16:30] LABS: Calcium 8.5 mg/dl (8.5-10.1); Creatinine Clr Calc Pharmacy 48.1 ml/min; Est GFR (African American) 64.4; Est GFR (Non-African American) 55.5; Potassium 3.5 mmol/L (3.5-5.1)
[2019-03-21] MEDS: MIRTAZAPINE TAB 15 MG TAB PO SCH (21:11)
[2019-03-21] MEDS ORDERED: Nursing to Pharmacy Communication ONE (23:16)
[2019-03-22] MEDS: HEPARIN 100 UNIT/ML 5ML FLUSH FLUSH PRN (05:13)
[2019-03-22 05:57] LABS: Basophils # (auto) 0.01 K/uL (0-0.2); Basophils % (auto) 0.2 %; Eosinophils % (auto) 1.8 %; Hematocrit (blood only) 31.3 % (37-47); Hemoglobin 10.7 g/dL (12.0-16.0); Immature Granulocytes # (auto) 0.03 K/uL (0.00-0.02); Immature Granulocytes % (auto) 0.5 %; Lymphocytes # (auto) 1.63 K/uL (1.2-3.4); Lymphocytes % (auto) 28.6 %; Mean Corpuscular Hgb Conc 34.2 g/dL (32-36); Mean Corpuscular Volume 88.7 fL (80-100); Mean Platelet Volume 9.3 fL (7.4-10.4); Monocytes # (auto) 0.56 K/uL (0.11-0.59); Monocytes % (auto) 9.8 %; Neutrophils # (auto) 3.37 K/uL (1.4-6.5); Neutrophils % (auto) 59.1 %; Platelet Count 314 K/uL (130-400); RDW Coefficient of Variation 14.3 % (11.5-14.5); RDW Standard Deviation 46.8 fL (36.4-46.3); Red Blood Count 3.53 M/uL (4.2-5.4)
[2019-03-22] MEDS: HEPARIN SOD 5,000 UNIT/0.5 ML VIAL SQ SCH ×3 (06:16→22:02)
[2019-03-22 06:30] LABS: BUN Creatinine Ratio 61.9 (10-20); Calcium 8.4 mg/dl (8.5-10.1); Creatinine Clr Calc Pharmacy 58.8 ml/min; Est GFR (African American) 82.5; Est GFR (Non-African American) 71.2; Potassium 3.3 mmol/L (3.5-5.1)
--- NOTE | 2019-03-22 07:50 | Neurology Progress Note ---
Date of Service March 22, 2019 Assessment & Plan (1) CIDP (chronic inflammatory demyelinating polyneuropathy): Patient has a 20 year history of chronic inflammatory demyelinating polyneuropathy treated every 28 days with IVIG. She has been doing very well on this regimen. Yesterday, she was much weaker than usual, as she was day 31 since her last infusion. Today she has noticeable improvement in strength in all 4 limbs. She still is quite weak however not her baseline. She has areflexia, diffuse severe weakness, and sensory deficits from this condition (2) Altered mental status: Patient had acute encephalopathy on admission, likely multifactorial. This would include increased confusion from urinary tract infection (no signs of growth in blood cultures so far), hypotension, and acute renal failure mostly from dehydration. Her sodium of 129 was not low enough to directly cause encephalopathy. With her underlying dementia she would be more easily put into an encephalopathy with these various infectious, metabolic and hemodynamic issues. She has had significant improvements in mentation since admission. Her mental status today is about the same as yesterday. BUN and creatinine improving. (3) Dementia: Patient has a [id number] underlying dementia likely of mixed origin including vascular. This has been fairly stable over time. Recommendations: 1. Gamunex C, 60 grams, run in over 4-5 hours, once more today. This will conclude her typical dosing. 2. Increase activity as able and have physical and occupational therapy assess her. 3. Continue treating infection and hydrating following renal status. Overall, I spent a total of 25 minutes with this case including review of records, direct evaluation the patient at bedside, discussion of the case with the patient at bedside, and nursing staff, including differential diagnosis and treatment options. Subjective Nursing reports no events overnight, however she pulled her port out. Patient has no complaint of pain or headache. She feels a little bit stronger. She is confused also as to events as before. BUN was down to 49 this morning and creatinine was 0.79. Glucose was 134. CBC shows someMild anemia. Blood pressure was 165/75 this morning. She received 60 grams of IVIG yesterday. Physical Exam Physical Exam: She is awake and alert. Speech is without aphasia or dysarthria. She was a little more confused this morning than yesterday and could not remember my name. She followed one-step commands well and was pleasant cooperative enough. Extraocular eye muscles are intact without nystagmus. Tongue is midline. There is no facial droop. Neck has reasonable strength. She can hold her arms outstretched better today and has no ataxia with [id number] testing. There is no resting, postural, or action tremor. Strength is 4-/5 proximally in the upper extremities bilaterally. Strength is 4/5 distally. In the lower extremity she can hold her left leg up off the bed for a few seconds but not the right. Distally leg strength is 4/5 bilaterally with tibialis anterior and gastrocnemius. Proximal leg strength is 3/5 on the right and 4-/5 on the left. Results & Data Vital Signs (Past 12 Hours) Vital Signs Temp Pulse Pulse Resp BP BP Pulse Ox 03/22/19 05:50 165/75 H 03/22/19 03:29 37.0 C 92 H 19 200/82 H 200/80 H 97 03/21/19 23:47 37.0 C 100 H 20 136/71 98 03/21/19 22:20 67 03/21/19 22:11 98 H 169/72 H (1) Altered mental status Altered mental status type: transient alteration of awareness Qualified Code(s): R40.4 - Transient alteration of awareness (2) Dementia Dementia type: unspecified type Dementia behavioral disturbance: without beha vioral disturbance Qualified Code(s): F03.90 - Unspecified dementia without behavioral disturbance
[2019-03-22] MEDS: INSULIN ASPART 100 UNITS/ML 3 ML PEN SC SCH ×4 (07:57→22:03)
[2019-03-22] MEDS: INSULIN GLARGINE SOLOSTAR 100 UNITS/ML 3 ML PEN SC SCH ×2 (07:58→22:02)
[2019-03-22] MEDS: ASPIRIN 81 MG ECTAB PO SCH (07:58)
[2019-03-22] MEDS: AMLODIPINE BESYLATE 5 MG TAB PO SCH (07:59)
[2019-03-22] MEDS: cefTRIAXone SODIUM 1,000 MG in DEXTROSE 5% 50 ML IV SCH (07:59)
[2019-03-22] MEDS: cloNIDine HCl 0.1 MG TAB PO SCH ×2 (07:59→21:36)
--- NOTE | 2019-03-22 11:45 | Nephrology Progress Note ---
Date of Service March 22, 2019 Assessment & Plan (1) Acute kidney injury: -- Patient admitted w/ urosepsis. CRYS likely hemodynamically mediated. -- Urine sediment is c/w infection -- Renal US is negative for obstruction -- Hold ARB therapy -- Monitor serial PRP -- Renal function continues to improve -- Volume status & electrolyte balance are acceptable at this time (2) UTI (urinary tract infection): -- Urine cx + for proteus -- Antibiotic therapy (Ceftriaxone) as per primary service (3) Hypertension: -- Hold ARB therapy due to CRYS -- BP acceptable with amlodipine therapy Subjective No acute events overnight. Patient resting comfortably in bed this morning. ROS limited due to mental status. No fevers or chills. IVIG provided yesterday. Urine output appropriate. Review of Systems Review of Systems: Unobtainable due to cognitive status Physical Exam Constitutional: + frail appearing Eyes: PERRL, conjunctivae normal, anicteric sclerae ENMT: Mouth: + dry oral mucous membranes; no oral mucosal abnormality Neck: trachea midline, no thyromegaly Respiratory: normal respiratory effort, lungs clear to auscultation Cardiovascular: RRR, no murmur, no edema Gastrointestinal (Abdomen): normal bowel sounds, soft, nontender, no hepatosplenomegaly Musculoskeletal: Extremities: no cyanosis and no clubbing Skin: + turgor decreased; no rashes Neurologic: Motor/Sensory: no tremor and no asterixis Results & Data Vital Signs (Past 12 Hours) Vital Signs Temp Pulse Pulse Pulse Resp BP BP 03/22/19 11:12 36.4 C L 72 18 141/73 H 03/22/19 10:00 79 03/22/19 08:00 36.5 C 90 18 171/91 H 03/22/19 05:50 165/75 H 03/22/19 03:29 37.0 C 92 H 19 200/82 H 200/80 H 03/21/19 23:47 37.0 C 100 H 20 136/71 Pulse Ox 03/22/19 11:12 97 03/22/19 10:00 03/22/19 08:00 97 03/22/19 05:50 03/22/19 03:29 97 03/21/19 23:47 98 Laboratory Results Laboratory Results - last 24 hr 03/21/19 03/21/19 03/21/19 16:04 17:01 20:38 WBC RBC Hgb Hct MCV MCH MCHC RDW Std Deviation RDW Coeff of Erick Plt Count MPV Immature Gran % (Auto) Neut % (Auto) Lymph % (Auto) Ford % (Auto) Eos % (Auto) Baso % (Auto) Immature Gran # (Auto) Neut # (Auto) Lymph # (Auto) Ford # (Auto) Eos # (Auto) Baso # (Auto) Sodium 136 Potassium 3.5 Chloride 109 H Carbon Dioxide 22 Anion Gap 5.0 BUN 61 H Creatinine 0.97 Est Cr Clr Drug Dosing 48.1 Est GFR ( Amer) 64.4 Est GFR (Non-Af Amer) 55.5 BUN/Creatinine Ratio 63.0 H Glucose 139 H POC Glucose 164 H 198 H Calcium 8.5 03/22/19 03/22/19 03/22/19 05:00 05:00 07:12 WBC 5.70 RBC 3.53 L Hgb 10.7 L Hct 31.3 L MCV 88.7 MCH 30.3 MCHC 34.2 RDW Std Deviation 46.8 H RDW Coeff of Erick 14.3 Plt Count 314 MPV 9.3 Immature Gran % (Auto) 0.5 Neut % (Auto) 59.1 Lymph % (Auto) 28.6 Ford % (Auto) 9.8 Eos % (Auto) 1.8 Baso % (Auto) 0.2 Immature Gran # (Auto) 0.03 H Neut # (Auto) 3.37 Lymph # (Auto) 1.63 Ford # (Auto) 0.56 Eos # (Auto) 0.10 Baso # (Auto) 0.01 Sodium 138 Potassium 3.3 L Chloride 108 H Carbon Dioxide 22 Anion Gap 8.0 BUN 49 H Creatinine 0.79 Est Cr Clr Drug Dosing 58.8 Est GFR ( Amer) 82.5 Est GFR (Non-Af Amer) 71.2 BUN/Creatinine Ratio 61.9 H Glucose 134 H POC Glucose 148 H Calcium 8.4 L 03/22/19 11:10 WBC RBC Hgb Hct MCV MCH MCHC RDW Std Deviation RDW Coeff of Erick Plt Count MPV Immature Gran % (Auto) Neut % (Auto) Lymph % (Auto) Ford % (Auto) Eos % (Auto) Baso % (Auto) Immature Gran # (Auto) Neut # (Auto) Lymph # (Auto) Ford # (Auto) Eos # (Auto) Baso # (Auto) Sodium Potassium Chloride Carbon Dioxide Anion Gap BUN Creatinine Est Cr Clr Drug Dosing Est GFR ( Amer) Est GFR (Non-Af Amer) BUN/Creatinine Ratio Glucose POC Glucose 171 H Calcium (1) UTI (urinary tract infection) Hematuria presence: without hematuria Urinary tract infection type: site unspecified Qualified Code(s): N39.0 - Urinary tract infection, site not specified
--- NOTE | 2019-03-22 12:26 | Family Medicine Progress Note ---
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 Treatment as below. Chronic inflammatory demyelinating polyneuropathy Today is the 2nd day of Gamunex 60mg. Pt still cannot flex hips, states she is ambulatory in [facility]. Hopefully clinical improvement tomorrow, PT and OT evals and then placement. Proteus Mirabilis UTI Urine cultures growing Proteus (sensitive to cephalosporins, resistance to Quinolines) Ceftriaxone continued (started 03/19/19), Daptomycin discontinued previously. Will continue to 7 day duration of Abx. Hyponatremia (Resolved) Mild hyponatremia, appears chronic, likely not a factor in mental status change Will monitor. Acute kidney injury (resolved) CRYS likely due to Prerenal vs ATN in setting of significant hypotension renal ultrasound consistent with chronic atrophy Creatinine peaked at ~3.5, now at baseline 0.7. OK to restart Irbesartan today. will monitor creatinine. Elevated troponin Troponins peaked at 0.06m unlikely ACS, more likely demand ischemia c/w ASA. No events on tele, will dowgrade. DM2 Lantus 10u BID ISS Continue to monitor blood sugars Hypertension Continue Amlodipine 10mg po daily Continue Clonidine 0.2mg po BID and 0.1mg po TID PRN Continue Hydralazine 50mg po TID Will restart Irbesartan 150mg daily. * c/w IV Hydralazine prn Dementia/Depression Patient with baseline dementia. Continue mirtazapine DVT Ppx: heparin DISPO: Med Surg / Pt lives in [facility], once pt improves clinically will get PT and OT and likely placement or back to . FULL CODE (2) Altered mental status: (3) Hyponatremia: (4) Elevated troponin: (5) UTI (urinary tract infection): (6) Diabetes mellitus: (7) Chronic inflammatory demyelinating polyneuropathy: (8) Dementia: (9) DVT prophylaxis: Supervising Physician Co-Signing Physician Notes Attending attestation Pt seen and examined in concert with Dr. Escalante. In agreement with the documented findings as noted in the resident documentation with any exceptions or additions as noted here. Considerable improvement in observed in bed activity and interactivity this morning. Still oriented only to person. Reports no pain, sensory changes or nausea. On examination, S1/S2 nl 2/6 NAILA early systolic. CTAB. Mild suprapubic TTP. Metabolic encephalopathy in the setting of UTI - continue ceftriaxone, transition to PO abx likely tomorrow. CIDP - day 2 of IVIG therapy, PT/OT consulted CRYS - trend BMP daily, encourage PO hydration re: aspiration precautions DMII - continue glargine HTN - continue amlodipine, clonidine. Restart irbesartan Else see resident documentation as noted. Subjective Pt pulled out the line coming from her A port overnight (twice). As a result a one to one was ordered. Pt is resting comfortably in bed and responding to questions. Mai in place. Pt has not complaints. She at breakfast. ROS: Pt states she is comfortably and denies all ROS, unsure how reliable this is due to pt's AMS. Physical Exam Constitutional: + frail appearing Eyes: PERRL, conjunctivae normal, anicteric sclerae ENMT: Mouth: no oral mucosal abnormality Neck: trachea midline, no thyromegaly Respiratory: normal respiratory effort, lungs clear to auscultation Cardiovascular: RRR, no murmur, no edema Gastrointestinal (Abdomen): normal bowel sounds, soft, nontender, no hepatosplenomegaly Musculoskeletal: Extremities: extremities normal to inspection (5/5 power in UE, cannot flex hips bilaterally, can wiggles toes to command.); no cyanosis and no clubbing Skin: no rashes Neurologic: Motor/Sensory: no tremor and no asterixis Psychiatric: Orientation: alert (place: [facility], year : 2016, knows name, & daughters name), oriented to person and cooperative Eye Contact: good eye contact Results & Data Vital Signs (Past 12 Hours) Vital Signs Temp Pulse Pulse Pulse Resp BP BP 03/22/19 11:12 36.4 C L 72 18 141/73 H 03/22/19 10:00 79 03/22/19 08:00 36.5 C 90 18 171/91 H 03/22/19 05:50 165/75 H 03/22/19 03:29 37.0 C 92 H 19 200/82 H 200/80 H Pulse Ox 03/22/19 11:12 97 03/22/19 10:00 03/22/19 08:00 97 03/22/19 05:50 03/22/19 03:29 97 Resident Activity Tracking Resident Involvement: Resident Care Provided Care Provided: Adult Hospital Medicine (1) UTI (urinary tract infection) Hematuria presence: without hematuria Urinary tract infection type: site unspecified Qualified Code(s): N39.0 - Urinary tract infection, site not specified (2) Diabetes mellitus Diabetes mellitus complication status: without complication Diabetes mellitus termination clerk insulin use: with assisted use Diabetes mellitus type: type 2 Qualified Code(s): E11.9 - Type 2 diabetes mellitus without complications; Z79.4 - residential (current) use of insulin (3) Dementia Dementia behavioral disturbance: without behavioral disturbance Dementia type: unspecified type Qualified Code(s): F03.90 - Unspecified dementia without behavioral disturbance (4) Altered mental status Altered mental status type: transient alteration of awareness Qualified Code(s): R40.4 - Transient alteration of awareness
[2019-03-22] MEDS ORDERED: IRBESARTAN 150 MG TAB PO SCH (12:30)
[2019-03-22] MEDS: IMMUNE GLOB-GAMUNEX HUMAN 200 ML IV SCH ×3 (15:16→20:34)
[2019-03-22] MEDS: POTASSIUM CHLORIDE 20 MEQ TABCR PO SCH (21:37)
[2019-03-22] MEDS: MIRTAZAPINE TAB 15 MG TAB PO SCH (21:38)
[2019-03-23] MEDS: HEPARIN 100 UNIT/ML 5ML FLUSH FLUSH PRN ×2 (05:38→21:16)
[2019-03-23] MEDS: HEPARIN SOD 5,000 UNIT/0.5 ML VIAL SQ SCH ×3 (06:07→21:30)
[2019-03-23 06:24] LABS: Basophils # (auto) 0.02 K/uL (0-0.2); Basophils % (auto) 0.4 %; Eosinophils # (auto) 0.14 K/uL (0-0.5); Eosinophils % (auto) 3.1 %; Hematocrit (blood only) 30.1 % (37-47); Hemoglobin 10.7 g/dL (12.0-16.0); Immature Granulocytes # (auto) 0.03 K/uL (0.00-0.02); Immature Granulocytes % (auto) 0.7 %; Lymphocytes # (auto) 1.67 K/uL (1.2-3.4); Lymphocytes % (auto) 36.6 %; Mean Corpuscular Hgb Conc 35.5 g/dL (32-36); Mean Corpuscular Volume 88.5 fL (80-100); Mean Platelet Volume 9.4 fL (7.4-10.4); Monocytes # (auto) 0.48 K/uL (0.11-0.59); Monocytes % (auto) 10.5 %; Neutrophils # (auto) 2.22 K/uL (1.4-6.5); Neutrophils % (auto) 48.7 %; Platelet Count 269 K/uL (130-400); RDW Standard Deviation 45.1 fL (36.4-46.3); White Blood Count 4.56 K/uL (4.8-10.8)
[2019-03-23 06:57] LABS: BUN Creatinine Ratio 60.5 (10-20); Calcium 8.2 mg/dl (8.5-10.1); Est GFR (African American) 89.3; Est GFR (Non-African American) 77.1; Potassium 4.2 mmol/L (3.5-5.1)
[2019-03-23] MEDS: INSULIN GLARGINE SOLOSTAR 100 UNITS/ML 3 ML PEN SC SCH ×2 (09:02→21:30)
[2019-03-23] MEDS: INSULIN ASPART 100 UNITS/ML 3 ML PEN SC SCH ×4 (09:02→21:30)
--- NOTE | 2019-03-23 09:02 | Neurology Progress Note ---
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 She has been doing very well on this regimen. On admission, she was much weaker than usual, as she was day 31 since her last infusion. Today she has noticeable improvement in strength in all 4 limbs. She still is weak. I am not sure if she is at her baseline yet. She has areflexia, diffuse severe weakness, and sensory deficits from this condition (2) Altered mental status: Patient had acute encephalopathy on admission, likely multifactorial. This would include increased confusion from urinary tract infection (no signs of growth in blood cultures so far), hypotension, and acute renal failure mostly from dehydration. Her sodium of 129 was not low enough to directly cause encephalopathy. With her underlying dementia she would be more easily put into an encephalopathy with these various infectious, metabolic and hemodynamic issues. She has had significant improvements in mentation since admission. Her mental status today is about the same as yesterday. BUN and creatinine improving. (3) Dementia: Patient has a onkx-oz-nybycbyj underlying dementia likely of mixed origin including vascular. This has been fairly stable over time. Recommendations: 1. I have no further neurologic testing or treatment recommendations to make at this time. 2. Increase activity as able and have physical and occupational therapy assess her. 3. Please contact me if I can be of further assistance on this case and I can follow as an outpatient as needed. Overall, I spent a total of 25 minutes with this case including review of records, direct evaluation the patient at bedside, discussion of the case with the patient at bedside, and nursing staff, and , including differential diagnosis and treatment options. Subjective Patient has no complaint of pain or headache. She has no vision problems or dizziness. She has no abdominal pain or shortness of breath. Nursing reports that she was stable overnight with no new issues. She received her IVIG. Blood pressure is 150/56 this morning. CBC shows hemoglobin of 10.7 hematocrit of 30.1. Sodium was mildly low at 132 but a BUN was improved at 45 and creatinine of 0.7. Glucose was 141. Calcium slightly low at 8.2. Physical Exam Physical Exam: She is awake and alert. She is pleasant and cooperative but not oriented well. She follows one-step commands. Extraocular eye muscles are intact without nystagmus. There is no facial droop. Tongue is midline. With outstretched arms there is no drift there is reasonable facility in the hands. Strength is 4/5 in the arms proximally and distally. Leg strength is 3/5 proximally on the left and 4-/5 proximally on the right. Strength is closer to 5/5 distally in the tibialis anterior and gastrocnemius muscles. Results & Data Vital Signs (Past 12 Hours) Vital Signs Temp Pulse Resp BP Pulse Ox 03/23/19 07:51 36.5 C 89 20 150/56 H 99 03/23/19 07:00 36.8 C 83 20 118/79 95 03/22/19 20:59 36.8 C 88 20 159/79 H 99 (1) Altered mental status Altered mental status type: transient alteration of awareness Qualified Code(s): R40.4 - Transient alteration of awareness (2) Dementia Dementia type: unspecified type Dementia behavioral disturbance: without behavioral disturbance Qualified Code(s): F03.90 - Unspecified dementia without behavioral disturbance
[2019-03-23] MEDS: cloNIDine HCl 0.1 MG TAB PO SCH ×2 (09:06→21:23)
[2019-03-23] MEDS: ASPIRIN 81 MG ECTAB PO SCH (09:07)
[2019-03-23] MEDS: POTASSIUM CHLORIDE 20 MEQ TABCR PO SCH (09:08)
[2019-03-23] MEDS: AMLODIPINE BESYLATE 5 MG TAB PO SCH (09:08)
[2019-03-23] MEDS: cefTRIAXone SODIUM 1,000 MG in DEXTROSE 5% 50 ML IV SCH (09:10)
--- NOTE | 2019-03-23 11:20 | Family Medicine Progress Note ---
Date of Service March 23, 2019 Assessment & Plan (1) Acute kidney injury: 78 yo F with h/o DM on insulin, chronic inflammatory demyelinating polyneuropathy for which she receives monthly IVIG infusions presenting with episode of altered mental status/ sepsis in setting of hypotension found to have CRYS and UTI Encephalopathy 2/2 to chronic demyelinating polyneuropathy and UTI significant improvement in mental status on Abx and with IVIG. Will need placement (possibly back to [facility] where pt came from) Chronic inflammatory demyelinating polyneuropathy Pt received Gamunex 60mg x 2 doses on 03/22 and 03/21. Motor power has improved, per neuro they will sign off ,pt close to baseline, they do not feel the need to change the IVIG regimen (pt gets IVIG Q28 days for 20 years). Proteus Mirabilis UTI Urine cultures growing Proteus (sensitive to cephalosporins, resistance to Quinolines) Ceftriaxone continued (started 03/19/19), Daptomycin discontinued previously. Rocephin stopped 03/23 and changed to keflex to end at 03/29/18. (complicated UTI) Hyponatremia (Resolved) Mild hyponatremia, appears chronic, likely not a factor in mental status change Will monitor. Acute kidney injury (resolved) CRYS likely due to Prerenal vs ATN in setting of significant hypotension renal ultrasound consistent with chronic atrophy Creatinine peaked at ~3.5, now at baseline 0.7. OK to restart Irbesartan today per nephro. will monitor creatinine. Elevated troponin Troponins peaked at 0.06m unlikely ACS, more likely demand ischemia c/w ASA. DM2 Lantus 10u BID ISS Continue to monitor blood sugars Hypertension Continue Amlodipine 10mg po daily Continue Clonidine 0.2mg po BID and 0.1mg po TID PRN Continue Hydralazine 50mg po TID Will restart Irbesartan 150mg daily. * c/w IV Hydralazine prn Dementia/Depression Patient with baseline dementia. Continue mirtazapine DVT Ppx: heparin DISPO: Med Surg / Pt lives in [facility], once pt improves clinically will get PT and OT and likely placement or back to . FULL CODE (2) Altered mental status: (3) Hyponatremia: (4) Elevated troponin: (5) UTI (urinary tract infection): (6) Diabetes mellitus: (7) Chronic inflammatory demyelinating polyneuropathy: (8) Dementia: (9) DVT prophylaxis: Supervising Physician Co-Signing Physician Notes Attending attestation Pt seen and examined in concert with Dr. Escalante. In agreement with the documented findings as noted in the resident documentation with any exceptions or additions as noted here. Conversant and without complaints. AAOx1 (self) with improved fatigue, though still persistent. On examination, S1/S2 nl 2/6 NAILA early systolic. CTAB. Improved suprapubic TTP. Metabolic encephalopathy in the setting of UTI - transition to PO today CIDP - day 2 of IVIG therapy completed, PT/OT consulted and pending evaluation/placement CRYS - resolved. Encourage PO hydration re: aspiration precautions DMII - continue glargine, resume home regimen on discharge. HTN - continue amlodipine, clonidine. Restart irbesartan in AM Else see resident documentation as noted. Subjective Pt is resting comfortably. No complaints. Tolerated breakfast. Still has a 1 to 1. no reports of pulling at her lines. ROS: No chest pain, no SOB, no dyspnea on exertion, no palpitations, no fevers, no chills, no nausea, no vomiting, no diarrhea, no dysuria, no rash. Physical Exam Constitutional: + frail appearing Eyes: PERRL, conjunctivae normal, anicteric sclerae ENMT: Mouth: no oral mucosal abnormality Neck: trachea midline, no thyromegaly Respiratory: normal respiratory effort, lungs clear to auscultation Cardiovascular: RRR, no murmur, no edema Gastrointestinal (Abdomen): normal bowel sounds, soft, nontender, no hepatosplenomegaly Musculoskeletal: Extremities: extremities normal to inspection (5/5 power in UE, 4/5 hip flex b/l, can wiggles toes to command.); no cyanosis and no clubbing Skin: no rashes Neurologic: Motor/Sensory: no tremor and no asterixis Psychiatric: Orientation: alert (place: [facility], year:1917, knows name, & daughters name), oriented to person and cooperative Eye Contact: good eye contact Results & Data Vital Signs (Past 12 Hours) Vital Signs Temp Pulse Resp BP Pulse Ox 03/23/19 07:51 36.5 C 89 20 150/56 H 99 03/23/19 07:00 36.8 C 83 20 118/79 95 Resident Activity Tracking Resident Involvement: Resident Care Provided Care Provided: Adult Hospital Medicine (1) UTI (urinary tract infection) Hematuria presence: without hematuria Urinary tract infection type: site unspecified Qualified Code(s): N39.0 - Urinary tract infection, site not specified (2) Diabetes mellitus Diabetes mellitus complication status: without complication Diabetes mellitus alf insulin use: with alf use Diabetes mellitus type: type 2 Qualified Code(s): E11.9 - Type 2 diabetes mellitus without complications; Z79.4 - penitentiary (current) use of insulin (3) Dementia Dementia behavioral disturbance: without behavioral disturbance Dementia type: unspecified type Qualified Code(s): F03.90 - Unspecified dementia without behavioral disturbance (4) Altered mental status Altered mental status type: transient alteration of awareness Qualified Code(s): R40.4 - Transient alteration of awareness
--- NOTE | 2019-03-23 11:40 | Nephrology Progress Note ---
Date of Service March 23, 2019 Assessment & Plan (1) Acute kidney injury: -- Patient admitted w/ urosepsis. CRYS likely hemodynamically mediated. -- Urine sediment is c/w infection -- Renal US negative for obstruction -- Renal function continues to improve -- Volume status & electrolyte balance are acceptable at this time -- Nephrology will sign-off, please call with questions or concerns -- May restart ARB therapy with monitoring when clinically indicated (2) UTI (urinary tract infection): -- Urine cx + for proteus (3) Hypertension: -- Hold ARB therapy due to CRYS -- BP acceptable with amlodipine therapy Subjective No acute events overnight. No complaints this morning. Review of Systems Review of Systems: Unobtainable due to cognitive status Physical Exam Constitutional: + frail appearing Eyes: PERRL, conjunctivae normal, anicteric sclerae ENMT: Mouth: + dry oral mucous membranes; no oral mucosal abnormality Neck: trachea midline, no thyromegaly Respiratory: normal respiratory effort, lungs clear to auscultation Cardiovascular: RRR, no murmur, no edema Gastrointestinal (Abdomen): normal bowel sounds, soft, nontender, no hepatosplenomegaly Musculoskeletal: Extremities: no cyanosis and no clubbing Skin: + turgor decreased; no rashes Neurologic: Motor/Sensory: no tremor and no asterixis Results & Data Vital Signs (Past 12 Hours) Vital Signs Temp Pulse Resp BP Pulse Ox 03/23/19 07:51 36.5 C 89 20 150/56 H 99 03/23/19 07:00 36.8 C 83 20 118/79 95 Laboratory Results Laboratory Results - last 24 hr 03/22/19 03/22/19 03/23/19 17:26 20:35 05:43 WBC 4.56 L RBC 3.40 L Hgb 10.7 L Hct 30.1 L MCV 88.5 MCH 31.5 MCHC 35.5 RDW Std Deviation 45.1 RDW Coeff of Erick 14.0 Plt Count 269 MPV 9.4 Immature Gran % (Auto) 0.7 Neut % (Auto) 48.7 Lymph % (Auto) 36.6 [place] % (Auto) 10.5 Eos % (Auto) 3.1 Baso % (Auto) 0.4 Immature Gran # (Auto) 0.03 H Neut # (Auto) 2.22 Lymph # (Auto) 1.67 [place] # (Auto) 0.48 Eos # (Auto) 0.14 Baso # (Auto) 0.02 Sodium Potassium Chloride Carbon Dioxide Anion Gap BUN Creatinine Est Cr Clr Drug Dosing Est GFR ( Amer) Est GFR (Non-Af Amer) BUN/Creatinine Ratio Glucose POC Glucose 103 H 169 H Calcium 03/23/19 03/23/19 05:43 07:49 WBC RBC Hgb Hct MCV MCH MCHC RDW Std Deviation RDW Coeff of Erick Plt Count MPV Immature Gran % (Auto) Neut % (Auto) Lymph % (Auto) [place] % (Auto) Eos % (Auto) Baso % (Auto) Immature Gran # (Auto) Neut # (Auto) Lymph # (Auto) [place] # (Auto) Eos # (Auto) Baso # (Auto) Sodium 132 L Potassium 4.2 D Chloride 105 Carbon Dioxide 23 Anion Gap 4.0 BUN 45 H Creatinine 0.74 Est Cr Clr Drug Dosing 63.0 Est GFR ( Amer) 89.3 Est GFR (Non-Af Amer) 77.1 BUN/Creatinine Ratio 60.5 H Glucose 141 H POC Glucose 160 H Calcium 8.2 L (1) UTI (urinary tract infection) Hematuria presence: without hematuria Urinary tract infection type: site unspecified Qualified Code(s): N39.0 - Urinary tract infection, site not specified
[2019-03-23] MEDS: cephALEXin 250 MG CAP PO SCH ×2 (17:40→21:22)
[2019-03-23] MEDS: MIRTAZAPINE TAB 15 MG TAB PO SCH (21:23)
[2019-03-24] MEDS: HEPARIN SOD 5,000 UNIT/0.5 ML VIAL SQ SCH (05:57)
[2019-03-24] MEDS: HEPARIN 100 UNIT/ML 5ML FLUSH FLUSH PRN (06:28)
[2019-03-24 06:36] LABS: Basophils # (auto) 0.01 K/uL (0-0.2); Basophils % (auto) 0.2 %; Eosinophils # (auto) 0.15 K/uL (0-0.5); Hematocrit (blood only) 29.1 % (37-47); Hemoglobin 10.8 g/dL (12.0-16.0); Immature Granulocytes # (auto) 0.02 K/uL (0.00-0.02); Immature Granulocytes % (auto) 0.4 %; Lymphocytes # (auto) 1.73 K/uL (1.2-3.4); Lymphocytes % (auto) 34.7 %; Mean Corpuscular Hgb Conc 37.1 g/dL (32-36); Mean Corpuscular Volume 85.3 fL (80-100); Neutrophils # (auto) 2.48 K/uL (1.4-6.5); Neutrophils % (auto) 49.7 %; Platelet Count 270 K/uL (130-400); RDW Coefficient of Variation 13.7 % (11.5-14.5); RDW Standard Deviation 42.7 fL (36.4-46.3); Red Blood Count 3.41 M/uL (4.2-5.4); White Blood Count 4.99 K/uL (4.8-10.8)
[2019-03-24 07:11] LABS: Calcium 8.5 mg/dl (8.5-10.1); Est GFR (African American) 95.5; Est GFR (Non-African American) 82.4; Potassium 3.6 mmol/L (3.5-5.1)
[2019-03-24] MEDS: INSULIN ASPART 100 UNITS/ML 3 ML PEN SC SCH ×2 (08:49→12:23)
[2019-03-24] MEDS: INSULIN GLARGINE SOLOSTAR 100 UNITS/ML 3 ML PEN SC SCH (08:50)
[2019-03-24] MEDS: AMLODIPINE BESYLATE 5 MG TAB PO SCH (08:51)
[2019-03-24] MEDS: ASPIRIN 81 MG ECTAB PO SCH (08:51)
[2019-03-24] MEDS: cephALEXin 250 MG CAP PO SCH ×2 (08:51→12:25)
[2019-03-24] MEDS: cloNIDine HCl 0.1 MG TAB PO SCH (08:52)
[2019-03-24] MEDS ORDERED: POTASSIUM CHLORIDE 20 MEQ TABCR PO SCH (09:00)
[2019-03-24] MEDS ORDERED: IRBESARTAN 150 MG TAB PO SCH (09:00)
--- NOTE | 2019-03-24 11:56 | Discharge Summary ---
Date of Service March 24, 2019 Admission HPI Per Admitting Provider Flakita Rodriguez is a 78yo C female with history of DM on insulin, chronic inflammatory demyelinating polyneuropathy for which she receives monthly IVIG infusions. She was due for an infusion. Reportedly became unresponsive requiring sternal rub. When she woke she was slightly confused. Patient is unable to provide history and does not recall the event. Upon arrival to the ER she was afebrile, hypotensive at 72/41, 93% on room air. She was administered IVF with improvement in blood pressure, last measurement 142/73. Labs reveal CRYS with BUN of 121 and Cr of 3.51. Patient offers no complaints. She denies pain, SOB. She states that she has been eating and drinking per usual. Reports adequate UOP, no burning/frequency/urgency/hematuria or foamy urine. She denies recent changes to her medication. She does feel weak in her arms and is wondering when she will be able to receive her IVIG infusion. ER Course: Ceftriaxone 1gm, Cefepime 1gm, NSS x 1L Admission Exam Per Admitting Provider General: patient resting comfortably, NAD, non-toxic in appearance, AA&O to person and location, answers questions appropriately and following commands Skin: warm, dry, intact, no rashes or lesions HEENT: NC/AT, PERRL, EOMI, anicteric sclera, conjunctiva without injection, external ear normal to inspection and nontender, nares patent, DRY mucus membranes, dentition intact, no oropharyngeal lesions, neck supple, trachea midline, no LAD, no thyromegaly, no JVD Heart: +S1/S2, regular, no m/r/g Lungs: equal air entry bilaterally, no rales/rhonchi/wheezes Abd: +BS, soft, NT/ND, no masses/organomegaly/ascites Ext: warm, 1+ pulses in UE/LE bilaterally, no clubbing/cyanosis or edema Neuro: nonfocal, patient AA&O x 2, speech intact, no facial droop, CN II-XII grossly intact, moving all extremities on command, bilateral UE weakness, 3/5. LE 5/5. Gait not assessed Principal Diagnosis Urosepsis, CRYS, AMS Discharge Exam General Appearance: Awake, alert & oriented to name + date but thinks the hospital is [facility], comfortable in general, NAD. Frail habitus. CV: +S1S2 RRR, 2/6 systolic murmur. Right upper chest mediport is accessed. Pulm: Clear to auscultation throughout. Abdomen: +BS, soft, non-tender (including suprapubically), non-distended. Extremities: No pedal edema or calf tenderness. Moving all extremities naturally and easily. Neuro: No gross neuro deficits. Discharge Data Allergies Allergy/AdvReac Type Severity Reaction Status Date / Time mycophenolate mofetil Allergy Unknown unknown Verified 03/19/19 09:44 nortriptyline Allergy Unknown unknown Verified 03/19/19 09:44 gabapentin AdvReac Intermediate DOUBLE Verified 03/19/19 09:44 VISION, NAUSEA, VOMITING Consultations Nephrology progress note assessment and plan on 23 March 2019 (1) Acute kidney injury: -- Patient admitted w/ urosepsis. CRYS likely hemodynamically mediated. 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 She has been doing very well on this regimen. On admission, she was much weaker than usual, as she was day 31 since her last infusion. Today she has noticeable improvement in strength in all 4 limbs. She still is weak. I am not sure if she is at her baseline yet. She has areflexia, diffuse severe weakness, and sensory deficits from this condition (2) Altered mental status: Patient had acute encephalopathy on admission, likely multifactorial. This would include increased confusion from urinary tract infection (no signs of growth in blood cultures so far), hypotension, and acute renal failure mostly from dehydration. Her sodium of 129 was not low enough to directly cause encephalopathy. With her underlying dementia she would be more easily put into an encephalopathy with these various infectious, metabolic and hemodynamic issues. She has had significant improvements in mentation since admission. Her mental status today is about the same as yesterday. BUN and creatinine improving. (3) Dementia: Patient has a eovj-ry-ixgdpfmt underlying dementia likely of mixed origin including vascular. This has been fairly stable over time. Recommendations: 1. I have no further neurologic testing or treatment recommendations to make at this time. 2. Increase activity as able and have physical and occupational therapy assess her. 3. Please contact me if I can be of further assistance on this case and I can follow as an outpatient as needed. Ordered Studies CT of the head without contrast on 19 March 2019 Impression: No acute intracranial abnormality. Age-related atrophy and chronic small vessel change. Portable single view Chest x-ray on 19 March 2019 IMPRESSION: Atelectasis left base. Emphysematous change. No acute process. Bilateral renal ultrasound on 20 March 2019 IMPRESSION: 1. No hydronephrosis. 2. Bilateral renal parenchymal atrophy consistent with chronic medical renal disease. Video swallow study on 24 March 2019.... report pending Hospital Course (1) UTI (urinary tract infection): 78 yo female admitted on 19 March 2019 for AMS prior to scheduled q28d IVIG infusion for chronic inflammatory demyelinating polyneuropathy. Urosepsis: By UA, then 24Apr UCx positive for MDR proteus. Lactate < 2. Empirically started on ceftriaxone and Daptomycin, then kept on ceftriaxone. 28Apr switched to Keflex (planned course to 04May). 24Apr BCx NGTD. Acute kidney injury: Admit Cr 3.51, since resolved with IVF. Renal u/s noted no hydronephrosis but evidence of bilateral parenchymal atrophy consistent with chronic renal disease. See nephrology consult notes. Altered mental status: Baseline dementia. Acute worsening likely secondary to metabolic encephalopathy, CRYS, and hyponatremia. CT head non-acute. Much improved since starting antibiotics and IVIG. Hyponatremia: Admit Na 129, likely due to dehydration. Improving, monitoring. Elevated troponin: Max TnI 0.06, trended down. May be secondary to demand ischemia due to dehydration. On aspirin. Aspiration: Seen by speech, concerns for aspiration. Given diet recommendations and seen by on car supervisor. - Videofluoroscopic swallow study was obtained on day of discharge (Apr) but report was not yet available at time of her transport back to [facility]. Chronic inflammatory demyelinating polyneuropathy: See neurology consult notes. Improved limb strength after IVIG infusion on 26Apr. Ongoing medical issues: - Dementia, Depression: On mirtazapine. - Diabetes mellitus: On lantus 10 units BID and insulin sliding scale as inp atient. --- Could likely benefit from some adjustment of her reported outpatient insulin regimen. - Hypertension: Restarted irbesartan (prior held due to CRYS). On amlodipine and clonidine. - Sacral pressure ulcer: Stage 3. Seen by wound care, applied Aquacel Ag, optifoam, and recommended change every other day as well as prn. Code status: Full code. Diet: Carb consistent, nectar thick, soft bite size. DVT prophy: On heparin as inpatient. PT/OT: Per PT and OT, patient is at her baseline. Disbo: Admitted to PCU telemetry while inpatient. Long-term resident of [facility]. (2) Sepsis: (3) Acute kidney injury: (4) Altered mental status: (5) Hyponatremia: (6) Elevated troponin: (7) Aspiration into airway: (8) Chronic inflammatory demyelinating polyneuropathy: (9) Dementia: (10) Depression: (11) Hypertension: (12) Pressure ulcer of sacral region, stage 3: Total Time Total Time Spent Total Time Spent (In Minutes): Less than 30 min Discharge Plan Discharge Items Patient Disposition: Trans Resident Long-Term Care Reason For Visit: SYNCOPE, CRYS Discharge Diagnosis: Urosepsis, acute kidney injury, altered mental status Discharge Goals: Decrease discomfort and Improve function Activity: Per 'Additional Instructions' section Non-emergency contact: Primary Care Provider Call non-emergency contact if: you have any medication questions Follow-up/Referrals: [facility] [Primary Care Provider] - Diet: Carb Consistent or DM2 Diet Texture: Dental soft (bite-sized) Liquid Consistency: Sunflower thick Addtl Provider Instructions: You are being discharged back to [facility] after your hospitalization for an infection in your bladder. We treated this with antibiotics and recommend that you continue antibiotics for the next 6 days. You are also noted to have some difficulty with your thinking which seems to have resolved. You were seen by the kidney doctors as well as the neurologist. You received a dose of your IVIG here which improved the movement of your arms and legs. Please work with the medical staff at [facility] if you have any questions or concerns about your medical care. Prescriptions: New cephalexin 250 mg Capsule 250 mg PO QID 6 Days Qty: 24 RF: 0 Continued acetaminophen 325 mg Tablet 650 mg PO Q6H PRN (Reason: Mild pain, fever) Qty: 0 RF: 0 hydralazine 50 mg Tablet 50 mg PO Q8 Qty: 0 RF: 0 clonidine HCl 0.3 mg Tablet 0.2 mg PO Q12 Qty: 0 RF: 0 insulin detemir U-100 100 unit/mL Solution 6 unit SUBCUT PM Qty: 0 RF: 0 Levemir U-100 Insulin 100 unit/mL Solution 22 unit SC QAM Qty: 0 RF: 0 magnesium hydroxide [Milk of Magnesia] 400 mg/5 mL Suspension 30 ml PO DAILY PRN (Reason: Constipation) Qty: 0 RF: 0 amlodipine 10 mg Tablet 10 mg PO DAILY Qty: 0 RF: 0 bisacodyl 10 mg Suppository 10 mg VA DAILY PRN (Reason: constipation) Qty: 0 RF: 0 aspirin 81 mg Tablet,Chewable 81 mg PO DAILY Qty: 0 RF: 0 mirtazapine [Remeron] 15 mg Tablet 7.5 mg PO HS Qty: 0 RF: 0 irbesartan [Avapro] 150 mg Tablet 150 mg PO DAILY Qty: 0 RF: 0 clonidine HCl 0.1 mg Tablet 0.1 mg PO TID PRN (Reason: sysotolic bp >/= to 170) RF: 0 insulin lispro [Humalog U-100 Insulin] 100 unit/mL Solution 1 sliding scale dose SUBCUT ACHS RF: 0 Fleet Enema 19-7 gram/118 mL Enema 118 ml VA HS PRN (Reason: Constipation) RF: 0 Discontinued insulin lispro [Humalog U-100 Insulin] 100 unit/mL Solution 10 unit SC TID Qty: 0 RF: 0 Stand-Alone Forms: [facility] Discharge Orders: Discharge Order (Routine); Ordered 03/24/19 Ordered By: Ivan Starr Admission Data Admit Date/Time: 03/19/19 11:27 Attending Provider: Moy Connors Admit Provider: Mylene Mackay Primary Care Provider: Pippa Sheehan Other Providers: Mylene Mackay ; Hunter Meeks ; Ron Frias III ; Thom Gonzalez Service: Medical Other Interventions: Discharge Summary Assessment (RN) Last Done: 03/24/19 12:15 DC Date/Time DO NOT enter until pt leaves facility: 03/24/19 13:37 Supervising Physician Co-Signing Physician Notes I personally examined the patient and verified all wright points of history and exam, discussed case, and agree with decision making with Dr Starr. Feeling okay. No complaints. Breathing unlabored. Vitals noted, in general she is awake and alert pleasant no distress. HEENT normocephalic atraumatic mucous members moist. Breathing is unlabored no accessory muscle use good effort. Skin shows no rashes no pallor or icterus. UTI with septic pictureimproving. Continue antibiotics stable for discharge to [facility]. Otherwise as above Resident Activity Tracking Resident Involvement: Resident Care Provided Care Provided: Adult Hospital Medicine
--- NOTE | 2019-03-24 12:38 | Fluoroscopy Report ---
VIDEO SWALLOW STUDY CLINICAL HISTORY: Aspiration. COMPARISON STUDY: No priors. Fluoroscopy time: 2.1 minutes. FINDINGS: Fluoroscopic guidance is provided to the Department of speech pathology in performing a vid eo swallow study. The patient consumed barium impregnated pudding, cracker with paste, nectar thick l iquid, and thin barium while the swallowing mechanism was observed in real-time. Silent aspiration wa s seen with thin barium. There is pharyngeal penetration without aspiration seen with the nectar thic k liquid texture. No aspiration was seen with the pudding or cracker with paste textures. Vallecular retention was noted with solids. IMPRESSION: 1. Silent aspiration was seen with thin barium. 2. See dedicated speech pathology report for detailed findings and recommendations. Dictated: 03/24/2019 12:22 PM Transcribed: 03/24/2019 12:38 PM Tracie [id number] [facility] Electronically signed by: Zhang Ledesma M.D. 03/24/2019 12:46 PM
--- OUTSIDE RECORDS SUMMARY | 2019-03-24 20:09 | External Medical Summary | Continuity of Care Document ---
:1940 Author Name Laine Maciel Address Unavailable Unavailable , Care Team Providers Name Role Phone Rodriguez RIVERS M.D., P. 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 Quantity: 90 Refills: 2 cloNIDine HCl - 0.1 MG Oral Tablet; TAKE 1 TABLET PRN Refills: 0 Milk of Magnesia 1200 MG/15ML Oral Suspension; USE DIRECT ED. 355 ML Bottle Refills: 0 Fleet Enema ENEM; USE DIRECTED. 133 M L Bottle Refills: 0 Aspirin 81 MG TABS; TAKE 1 TABLET DAILY. Quantity: 90 Refills: 0 Dulcolax SUPP; INSERT ONE SUPPOSITORY RECTALLY DAILY NEED ED Refills: 0 HumaLOG 100 UNIT/ML Subcutaneous Solution; USE DIRECTED. 3 ML Vial Refills: 0 Tylenol 325 MG Oral Tablet; TAKE 2 TABLET Every 4 hours PRN Refills: 0 hydrALAZINE HCl - 50 MG Oral Tablet; TAKE 1 TABLET Every 8 h ours Start: 19-Dec-2016 Refills: 0 Irbesartan 150 MG Oral Tablet; TAKE 1 TABLET DAILY DIRECT ED. Start: 24-Jan-2017 Refills: 0 cloNIDine HCl - 0.2 MG Oral Tablet; TAKE 2 TABLET Every morn ing Start: 24-Jan-2017 Refills: 0 Mirtazapine 7.5 MG Oral Tablet; TAKE 1 TABLET AT BEDTIME. Refills: 0 Gamunex-C 10 GM/100ML Injection Solution ; INFUSE 60GM/600ML OVER 4-5 HOURS DAILY X 2 DAYS Q 4 WEEKS. DRAW BMP PRIOR TO INFUSION DAY 1. PRETREAT W/ PO BENADRYL 25MG AND TYLENOL 325MG Start: 19-Sep-2018 Refills: 0 100 ML Vial Procedures History of Cholecystectomy Status: Compl eted 26-Nov-1990 0:00 History of Hysterectomy Status: Complete d 26-Nov-1973 0:00 History of Tonsillectomy Status: Complet ed 26-Nov-1941 0:00 History of Central IV Line With Subcutaneous Status: Completed 26-Nov-2003 0:00 [facility] History of Partial Colectomy Status: Com pleted 24-Jan-2010 0:00 Immunizations Immunizations not documented Family History Father Family history of Septicemia Status: Active Grandmother Family history of Hypertension (V17.49) Status: Active Mother Family history of Hip Replacement Status: Active Sister Family history of Colon Cancer (V16.0) Status: Active Family history of Hypertension (V17.49) Status: Active Family history of Diabetes Mellitus (V18.0) Status: Active natural daughter Family history of Type 2 Diabetes Mellitus Status: Active Social History - Smoking Status Never smoker Plan of Treatment Planned Encounters Appointment; Dallin Frias III, M.D. Start: 02-Jun-2019 10:[address] Planned Observations Planned Goals not documented Results No Known Results Results not documented Encounters Appointment; Dallin Frias III, M.D. 21-May-2018 9:30 Encounter Diagnosis: Problem not documented Appointment; Dallin Frias III, M.D. 29-Mar-2017 9:30 Encounter Diagnosis: Problem not documented Appointment; Dallin Frias III, M.D. 02-Jun-2019 10:00 Encounter Diagnosis: Problem not documented
== END 2019-03-24 13:37 | DRG 871 ==
LOC: ED 08:39 → SUATTDRO 11:27 → 2E 11:27 → 4W 03-22 14:21
DX: N39.0 Urinary tract infection, site not specified; F32.9 Major depressive disorder, single episode, unspecified; N17.9 Acute kidney failure, unspecified; Z79.899 Other long term (current) drug therapy; X58.XXXA Exposure to other specified factors, initial encounter; I24.8 Other forms of acute ischemic heart disease; T17.920A Food in respiratory tract, part unspecified causing asphyxiation, initial encounter; A41.9 Sepsis, unspecified organism; F03.90 Unspecified dementia, unspecified severity, without behavioral disturbance, psychotic disturbance, mood disturbance, and anxiety; I10 Essential (primary) hypertension; Z79.82 Long term (current) use of aspirin; G61.81 Chronic inflammatory demyelinating polyneuritis; Z79.4 Long term (current) use of insulin; G93.41 Metabolic encephalopathy; E11.9 Type 2 diabetes mellitus without complications; E87.1 Hypo-osmolality and hyponatremia

== ENCOUNTER 2019-06-23 09:05 | Observation (INO) ==
[2019-06-23] MEDS ORDERED: SODIUM CHLORIDE 0.9% 1000ML 1,000 ML IV SCH (09:45)
[2019-06-23 09:53] LABS: Basophils # (auto) 0.02 K/uL (0-0.2); Basophils % (auto) 0.3 %; Eosinophils # (auto) 0.06 K/uL (0-0.5); Hematocrit (blood only) 29.6 % (37-47); Hemoglobin 10.3 g/dL (12.0-16.0); Immature Granulocytes # (auto) 0.02 K/uL (0.00-0.02); Immature Granulocytes % (auto) 0.3 %; Lymphocytes # (auto) 0.91 K/uL (1.2-3.4); Lymphocytes % (auto) 14.5 %; Mean Corpuscular Hgb Conc 34.8 g/dL (32-36); Mean Corpuscular Volume 88.1 fL (80-100); Mean Platelet Volume 9.3 fL (7.4-10.4); Monocytes # (auto) 0.41 K/uL (0.11-0.59); Monocytes % (auto) 6.5 %; Neutrophils # (auto) 4.84 K/uL (1.4-6.5); Neutrophils % (auto) 77.4 %; Platelet Count 309 K/uL (130-400); RDW Coefficient of Variation 14.7 % (11.5-14.5); RDW Standard Deviation 47.4 fL (36.4-46.3); Red Blood Count 3.36 M/uL (4.2-5.4); White Blood Count 6.26 K/uL (4.8-10.8)
--- NOTE | 2019-06-23 10:02 | CT Scan Report ---
HEAD CT NONCONTRAST CT DOSE: 537.48 mGy.cm HISTORY: Headache. TECHNIQUE: Multiaxial CT images of the head were performed without the use of intravenous contrast. A utomated exposure control was utilized for this study. A dose lowering technique was utilized adheri ng to the principles of ALARA. Comparison: Head CT 03/19/2019. Findings: The paranasal sinuses and mastoid air cells are clear. The calvarium and skull base are int act. There is no mass, hematoma, midline shift, acute infarct. White matter hypodensity is nonspecifi c but suggestive of microvascular ischemic change. The ventricles and sulci demonstrate mild age-rela yue involutional changes. Impression: No significant change compared to the prior study. No acute intracranial abnormality. Electronically signed by: Marbin Dubois M.D. 06/23/2019 10:01 AM
[2019-06-23 10:08] LABS: Prothrombin Time 10.4 Seconds (9.0-12.0)
[2019-06-23 10:11] LABS: Alanine Aminotransferase 20 U/L (12-78); Albumin Level 2.7 gm/dl (3.4-5.0); Aspartate Aminotransferase 20 U/L (15-37); BUN Creatinine Ratio 21.1 (10-20); Blood Urea Nitrogen 29 mg/dl (7-18); Calcium 8.5 mg/dl (8.5-10.1); Carbon Dioxide 21 mmol/L (21-32); Chloride 98 mmol/L (98-107); Creatinine Clr Calc Pharmacy 35.3 ml/min; Est GFR (African American) 43.2; Est GFR (Non-African American) 37.2; Glucose 332 mg/dl (70-99); Potassium 4.4 mmol/L (3.5-5.1); Sodium 131 mmol/L (136-145)
[2019-06-23 10:15] LABS: Albumin Globulin Ratio 0.5 (0.9-2); Alkaline Phosphatase 98 U/L (45-117); Bilirubin,Total 0.6 mg/dl (0.2-1); Globulin 5.1 gm/dl (2.5-4.0); Total Protein 7.9 gm/dl (6.4-8.2); Troponin I < 0.015 ng/ml (0-0.045)
[2019-06-23] MEDS ORDERED: NovoLIN-R INSULIN PER UNIT CHARGE IV STA (10:15)
[2019-06-23 10:24] LABS: Beta-Hydroxybutyrate 1.43 mg/dl (0.2-2.81)
--- NOTE | 2019-06-23 10:42 | XRay Report ---
XR chest 1V portable CLINICAL HISTORY: weakness dyspnea COMPARISON STUDY: 03/19/2019 FINDINGS: Unchanged subsegmental atelectasis left base. Lungs otherwise appear clear. Central cathete r remains in superior vena cava. IMPRESSION: No acute process. The above report was generated using voice recognition software. It may contain grammatical, syntax or spelling errors. Electronically signed by: Lenard Nesbitt M.D. 06/23/2019 10:41 AM
[2019-06-23 11:07] LABS: Appearance Urine Clear (Clear); Bacteria Urine Automated Negative (Negative); Bilirubin Urine Negative (Negative); Blood Urine Negative (Negative); Color Urine Dark Yellow; Epithelial Cell Urine Auto >30 /lpf (0-5); Glucose Urine UA Negative (Negative); Ketones Urine Negative (Negative); Leukocyte Esterase Urine Trace (Negative); Nitrite Urine Negative (Negative); Protein Urine Negative (Negative); RBC Urine Automated 0-4 /hpf (0-4); Specific Gravity Urine 1.018 (1.000-1.030); Urobilinogen Urine Negative (Negative)
[2019-06-23] MEDS ORDERED: SODIUM CHLORIDE 0.9% 500 ML IV ONE (11:25)
--- NOTE | 2019-06-23 12:05 | History & Physical Report ---
Date of Service June 23, 2019 Assessment & Plan (1) Hypotension: This appears to be due to the combined effects of multiple blood pressure medications and volume depletion. Observation with telemetry. IV fluids. Hold amlodipine, clonidine, hydralazine. Monitor orthostatic vital signs Present on Admission?: Yes (2) Acute kidney injury: She is not on any diuretic therapy. Administer IV fluids. Monitor intake and output. Serial lab studies Present on Admission?: Yes (3) Chronic inflammatory demyelinating polyneuropathy: Consult neurology. She receives intravenous immunoglobulin on a monthly basis (4) Diabetes mellitus: ADA diet. Continue Levemir. Sliding scale insulin coverage as needed (5) DVT prophylaxis: Lovenox subcu (6) Full code status: Per patient request History of Present Illness Chief Complaint: Weakness Primary Care Provider: [facility] 78-year-old female from [facility] who receives intravenous IVIG on a monthly basis for chronic inflammatory demyelinating polyneuropathy. She was at the [facility] today when she was found to have hypotension. She denies any associated chest pain or shortness of breath. She states her weakness has been getting gradually worse however. She denies any fever, chills, nausea, vomiting, diarrhea, dysuria. She had a similar episode back in February of this year but had a UTI at that time. Urine analysis is unremarkable currently. She has mild CRYS with creatinine 1.3. She is not on diuretic therapy. She is responding to IV fluids. She does not appear to be septic. She will be placed in observation status for hydration and several of her blood pressure medications will be placed on hold. Neurology consultation has been requested. Allergies Allergy/AdvReac Type Severity Reaction Status Date / Time mycophenolate mofetil Allergy Unknown unknown Verified 06/23/19 10:24 nortriptyline Allergy Unknown unknown Verified 06/23/19 10:24 gabapentin AdvReac Intermediate DOUBLE Verified 06/23/19 10:24 VISION, NAUSEA, VOMITING Home Medications Home Medications Medication Instructions Recorded Confirmed Type acetaminophen 650 mg PO Q6H PRN #0 08/21/16 06/23/19 History hydralazine 50 mg PO Q8 #0 01/08/17 06/23/19 History clonidine HCl 0.4 mg PO Q12 #0 03/05/17 06/23/19 History Levemir U-100 Insulin 22 unit SC QAM #0 09/17/17 06/23/19 History amlodipine 10 mg PO QAM #0 01/09/18 06/23/19 History aspirin 81 mg PO QAM #0 01/09/18 06/23/19 History bisacodyl 10 mg [place] DAILY PRN #0 01/09/18 06/23/19 History magnesium hydroxide [Milk of 30 ml PO DAILY PRN #0 01/09/18 06/23/19 History Magnesia] mirtazapine [Remeron] 7.5 mg PO HS #0 01/09/18 06/23/19 History irbesartan [Avapro] 150 mg PO QAM #0 06/25/18 06/23/19 History clonidine HCl 0.1 mg PO TID PRN 08/20/18 06/23/19 History insulin lispro [Humalog U-100 1 sliding scale dose SUBCUT ACHS 08/20/18 06/23/19 History Insulin] Fleet Enema 118 ml [place] HS PRN 01/06/19 06/23/19 History dimethicone [Durable Barrier] 1.36 % TOPICAL TID 06/23/19 06/23/19 History insulin detemir U-100 [Levemir 15 unit SUBCUT HS 06/23/19 06/23/19 History FlexTouch U-100 Insuln] Past Med/Surg History Medical History Altered mental status Obesity Hyponatremia Hyperlipidemia Diabetes mellitus Failure to thrive Gait abnormality Chronic inflammatory demyelinating polyneuropathy Dementia Hypertensive urgency CHF (congestive heart failure) Type II diastolic dysfunction per echo 11/2016 Hypertension Surgical History History of cholecystectomy History of vascular access device (Acute) right upper chest History of tonsillectomy Family History Other No pertinent family history Social History Preferred Language: Malian Communication Ability: Unable Beliefs That Will Affect Care: None Current Living Situation: Prison Current Living Situation Comment: [place] current occupational status: retired 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 Feels Safe at Home: Yes Smoking Status: Never smoker Hx Alcohol Use: No Hx Substance Use: No Review of Systems Review of Systems: Constitutional-no fever or chills. Worsening generalized weakness more pronounced in the lower legs bilaterally ENT-no blurred vision, no double vision, no epistaxis, no sore throat Respiratory-no cough, no wheezing, no shortness of breath Cardiac-no palpitations, no chest pain, no syncope GI-no nausea, vomiting, diarrhea, melena, hematochezia -no urinary retention, no urinary incontinence, no dysuria, no hematuria Musculoskeletal-no joint pain, no muscle tenderness Skin-no bruising, no rashes, no pruritus Neuro-chronic generalized weakness which has progressed mostly in bilateral lower extremities Psych-no depression, no anxiety Physical Exam Physical Exam: General-alert and oriented x3, no fevers, no chills HEENT-head atraumatic and normocephalic, TMs intact bilaterally, pupils equal and reactive to light, extraocular muscles intact Neck-no lymphadenopathy or thyromegaly, trachea midline Chest-clear to auscultation percussion. No rales wheezing or rhonchi Cardiac-regular rate and rhythm, normal S1 and S2, no JVD Abdomen-normal bowel sounds, nontender, no hepatosplenomegaly Extremities-no cyanosis, clubbing, or edema Neuro-patient is awake and alert . Oriented to name, place, time. Generalized weakness more pronounced in bilateral lower extremities with symmetrical weakness. She is unable to keep lower extremities lifted off the bed for any length of time. Ankle dorsiflexion and plantarflexion are significantly weekend bilaterally but symmetrical Psych-flat affect Results & Data Vital Signs (Past 12 Hours) Vital Signs Temp Pulse Resp BP Pulse Ox 06/23/19 11:25 62 15 95/63 L 98 06/23/19 11:20 61 14 99 06/23/19 11:10 59 L 15 98 06/23/19 11:00 62 19 98 06/23/19 10:50 66 15 97 06/23/19 10:40 74 19 99 06/23/19 10:30 58 L 22 114/55 L 97 06/23/19 10:20 64 18 97 06/23/19 10:07 63 16 114/55 L 06/23/19 09:45 110/57 L 06/23/19 09:37 94 06/23/19 09:28 78 20 98/49 L 98 06/23/19 09:21 74 18 84/61 L 98 06/23/19 09:20 72 16 99 06/23/19 09:10 36.7 C 65 15 97/47 L 98 Laboratory Results 06/23/19 09:29 06/23/19 09:29 PG Care Time/CCT Total # of Minutes Spent Total Time Spent with Patient: Total time spent is greater than 50% in coordination of care (as documented) at patient's floor/unit and/or counseling patient: (1) Diabetes mellitus Diabetes mellitus type: type 2 Diabetes mellitus chcf insulin use: with terminal press operator use Diabetes mellitus complication status: without complication Qualified Code(s): E11.9 - Type 2 diabetes mellitus without complications; Z79.4 - senior care (current) use of insulin
[2019-06-23] MEDS ORDERED: MAGNESIUM HYDROXIDE SUSP 30 ML UDC PO PRN (13:26)
[2019-06-23] MEDS ORDERED: BISACODYL 10 MG SUPP PR PRN (13:26)
[2019-06-23] MEDS ORDERED: ALUMINUM/MAGNESIUM SUSP 30 ML UDC PO PRN (13:26)
[2019-06-23] MEDS ORDERED: SOD PHOSPHATE/SOD BIPHOSPHATE ENEMA 132 ML BTL PR PRN (13:26)
[2019-06-23] MEDS ORDERED: ACETAMINOPHEN 325 MG TAB PO PRN (13:26)
[2019-06-23] MEDS ORDERED: ONDANSETRON INJ 2 MG/ML 2 ML VIAL IV PRN (13:26)
[2019-06-23] MEDS ORDERED: GLUCAGON FOR INJ 1 MG VIAL IM PRN (14:00)
[2019-06-23] MEDS ORDERED: GLUCOSE 10 TABS/TUBE PO PRN (14:00)
[2019-06-23] MEDS ORDERED: GLUCOSE 40% GEL 15 GM TUBE PO PRN (14:00)
[2019-06-23] MEDS ORDERED: CARBOHYDRATES FOR HYPOGLYCEMIA PO PRN (14:00)
[2019-06-23] MEDS ORDERED: DEXTROSE 50% 50 ML SYRINGE IV PRN (14:00)
[2019-06-23] MEDS: SODIUM CHLORIDE 0.9% 1000ML 1,000 ML IV SCH (14:14)
[2019-06-23] MEDS ORDERED: PNEUMOCOCCAL ADMINISTRATION CHARGE ONE (14:30)
[2019-06-23] MEDS ORDERED: PNEUMOCOCCAL POLYSACCHARIDES 25 MCG/0.5 ML VIAL/SYR IM ONE (14:30)
[2019-06-23] MEDS ORDERED: ENOXAPARIN INJ 40 MG/0.4 ML SYR SQ SCH (15:00)
--- NOTE | 2019-06-23 16:33 | Emergency Department Note ---
Entered by Kandis Pickett acting as a scribe for Moy Maloney DO History of Present Illness General Chief complaint: Headache Source: patient Mode of arrival: ambulatory Limitations: no limitations History of Present Illness Onset (ago): hour(s) 2 Location: head (headache) Pain Consistency: + constant Maximum Pain Intensity: 8 Quality: + other (Per nursing staff, the patient appeared listless and pale during the treatment. ) Associated symptoms: + headaches, + weakness (in legs ) and + other (The patient denies diarrhea, numbness, and urinary symptoms. ); no chest pain, no cough, no nausea/vomiting and no shortness of breath The patient is a 78 year old female with a history of CIDP, CHF, hypertension, AMS, hyperlipidemia, diabetes, chronic inflammatory demyelinating, polyneuropathy, tonsillectomy, cholecystectomy, and vascular access device in right upper chest who presents to the ED with complaints of a constant frontal headache that onset 2 hours ago. The patient presents from [facility] after receiving an IVIG treatment. She states that she is unsure why she needed the treatment. Per nursing staff, the patient appeared listless and pale during the treatment. They note that she had a blood pressure of 64/44 at this time. The patient complains of feeling weak in her legs. The patient denies chest pain, cough, shortness of breath, nausea, vomiting, diarrhea, numbness, and urinary symptoms. She denies recent trauma. Home Medications Home Medications Medication Instructions Recorded Confirmed Type acetaminophen 650 mg PO Q6H PRN #0 08/21/16 06/23/19 History hydralazine 50 mg PO Q8 #0 01/08/17 06/23/19 History clonidine HCl 0.4 mg PO Q12 #0 03/05/17 06/23/19 History Levemir U-100 Insulin 22 unit SC QAM #0 09/17/17 06/23/19 History amlodipine 10 mg PO QAM #0 01/09/18 06/23/19 History aspirin 81 mg PO QAM #0 01/09/18 06/23/19 History bisacodyl 10 mg NJ DAILY PRN #0 01/09/18 06/23/19 History magnesium hydroxide [Milk of 30 ml PO DAILY PRN #0 01/09/18 06/23/19 History Magnesia] mirtazapine [Remeron] 7.5 mg PO HS #0 01/09/18 06/23/19 History irbesartan [Avapro] 150 mg PO QAM #0 06/25/18 06/23/19 History clonidine HCl 0.1 mg PO TID PRN 08/20/18 06/23/19 History insulin lispro [Humalog U-100 1 sliding scale dose SUBCUT ACHS 08/20/18 06/23/19 History Insulin] Fleet Enema 118 ml NJ HS PRN 01/06/19 06/23/19 History dimethicone [Durable Barrier] 1.36 % TOPICAL TID 06/23/19 06/23/19 History insulin detemir U-100 [Levemir 15 unit SUBCUT HS 06/23/19 06/23/19 History FlexTouch U-100 Insuln] Allergies Allergy/AdvReac Type Severity Reaction Status Date / Time mycophenolate mofetil Allergy Unknown unknown Verified 06/23/19 10:24 nortriptyline Allergy Unknown unknown Verified 06/23/19 10:24 gabapentin AdvReac Intermediate DOUBLE Verified 06/23/19 10:24 VISION, NAUSEA, VOMITING Past Med/Surg History Medical History Hypotension (Acute) Acute kidney injury (Acute) Altered mental status Obesity Hyponatremia Hyperlipidemia Diabetes mellitus (Chronic) Failure to thrive Gait abnormality Chronic inflammatory demyelinating polyneuropathy (Chronic) Dementia Hypertensive urgency CHF (congestive heart failure) Type II diastolic dysfunction per echo 11/2016 Hypertension Surgical History History of cholecystectomy History of vascular access device (Acute) right upper chest History of tonsillectomy Family History Other No pertinent family history Social History Preferred Language: Irish Communication Ability: Effective Supervisor [employer] Installation Required: No Beliefs That Will Affect Care: None Current Living Situation: [facility] Current Living Situation Comment: [facility] current occupational status: retired 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 Feels Safe at Home: Yes Safety Concerns: Feels Safe At This Time Smoking Status: Unknown if ever smoked Hx Alcohol Use: No Hx Substance Use: No Review of Systems See HPI for pertinent positives & negatives. and A total of 10 systems reviewed and were otherwise negative Physical Exam Vital Signs Vital Signs - 24 hr 06/23/19 09:10 06/23/19 09:20 06/23/19 09:21 Temperature 36.7 C Temperature Source Oral Sepsis Recent Fever Within 48 Hours No Sepsis New/Unexplained Change in Mental Status No Sepsis Action Taken by Nursing No Action Required Pulse Rate 65 72 74 Pulse Rate from SpO2 Sensor 66 65 71 Respiratory Rate 15 16 18 Respiratory Depth Normal Blood Pressure 97/47 L 84/61 L Blood Pressure Mean 63 68 Pulse Oximetry 98 99 98 Oxygen Delivery Method Room Air 06/23/19 09:28 06/23/19 09:37 06/23/19 09:45 Temperature Temperature Source Sepsis Recent Fever Within 48 Hours Sepsis New/Unexplained Change in Mental Status Sepsis Action Taken by Nursing Pulse Rate 78 Pulse Rate from SpO2 Sensor 76 Respiratory Rate 20 Respiratory Depth Blood Pressure 98/49 L 110/57 L Blood Pressure Mean 65 74 Pulse Oximetry 98 94 Oxygen Delivery Method Room Air 06/23/19 10:07 06/23/19 10:20 06/23/19 10:30 Temperature Temperature Source Sepsis Recent Fever Within 48 Hours Sepsis New/Unexplained Change in Mental Status Sepsis Action Taken by Nursing Pulse Rate 63 64 58 L Pulse Rate from SpO2 Sensor 65 63 Respiratory Rate 16 18 22 Respiratory Depth Blood Pressure 114/55 L 114/55 L Blood Pressure Mean 74 74 Pulse Oximetry 97 97 Oxygen Delivery Method 06/23/19 10:40 06/23/19 10:50 06/23/19 11:00 Temperature Temperature Source Sepsis Recent Fever Within 48 Hours Sepsis New/Unexplained Change in Mental Status Sepsis Action Taken by Nursing Pulse Rate 74 66 62 Pulse Rate from SpO2 Sensor 66 66 64 Respiratory Rate 19 15 19 Respiratory Depth Blood Pressure Blood Pressure Mean Pulse Oximetry 99 97 98 Oxygen Delivery Method 06/23/19 11:10 06/23/19 11:20 06/23/19 11:25 Temperature Temperature Source Sepsis Recent Fever Within 48 Hours Sepsis New/Unexplained Change in Mental Status Sepsis Action Taken by Nursing Pulse Rate 59 L 61 62 Pulse Rate from SpO2 Sensor 57 L 62 60 Respiratory Rate 15 14 15 Respiratory Depth Blood Pressure 95/63 L Blood Pressure Mean 73 Pulse Oximetry 98 99 98 Oxygen Delivery Method Room Air 06/23/19 11:30 06/23/19 11:48 06/23/19 12:00 Temperature Temperature Source Sepsis Recent Fever Within 48 Hours Sepsis New/Unexplained Change in Mental Status Sepsis Action Taken by Nursing Pulse Rate 59 L 65 66 Pulse Rate from SpO2 Sensor 64 65 68 Respiratory Rate 17 20 15 Respiratory Depth Blood Pressure 105/67 115/56 L 113/50 L Blood Pressure Mean 79 75 71 Pulse Oximetry 96 99 99 Oxygen Delivery Method Room Air Room Air Room Air GENERAL: Sitting up in bed, chronically ill appearing, disheveled. EYE EXAM: Normal conjunctiva. OROPHARYNX: no exudate, no erythema, lips, buccal mucosa, and tongue normal and mucous membranes are moist NECK: supple, no nuchal rigidity, no adenopathy, non-tender LUNGS: Clear to auscultation. Normal chest wall mechanics HEART: no murmurs, S1 normal and S2 normal ABDOMEN: abdomen soft, non-tender, normo-active bowel sounds, no masses, no rebound or guarding. BACK: Back is symmetrical on inspection and there is no deformity, no midline tenderness, no CVA tenderness. SKIN: no rashes and no bruising UPPER EXTREMITIES: upper extremities are grossly normal. LOWER EXTREMITIES: No pitting edema. NEURO EXAM: Normal sensorium, cranial nerves II-XII grossly intact, normal speech, no gross weakness of arms. Difficulty with flexion of hips bilaterally. Plantar and dorsiflexion intact. EHL intact. Course 0943: Past medical records reviewed. The patient was evaluated in room A12B. A complete history and physical examination was performed. 1129: The patient's blood pressure is in the low 100's. She is still unable to flex her legs and is very weak. 1130: I reviewed the patient's case with Dr. Femi Etienne - [facility]. He will evaluate the patient for further management. Consultations Consultation #1: 1130: I reviewed the patient's case with Dr. Femi Etienne - [facility]. He will evaluate the patient for further management. Time: 11:30 Administered Medications Enoxaparin Sodium (Lovenox) 40 mg SQ Q24H CELINE Stop: 07/23/19 14:59 Last Admin: 06/23/19 15:40 Dose: 40 mg Documented by: [id number] Sodium Chloride (Nss 1000ml) 1,000 mls @ 100 mls/hr IV .Q10H CELINE Stop: 07/23/19 13:25 Last Admin: 06/23/19 14:14 Dose: 100 mls/hr Documented by: [id number] Discontinued Medications Sodium Chloride (Nss 1000ml) 1,000 mls @ 999 mls/hr IV .Q1H1M CELINE Stop: 06/23/19 10:45 Last Infusion: 06/23/19 11:39 Dose: 0 mls/hr Documented by: [id number] Admin: 06/23/19 09:43 Dose: 999 mls/hr Documented by: [id number] Sodium Chloride (Nss) 500 mls @ 999 mls/hr IV .Q31M ONE Stop: 06/23/19 11:55 Last Infusion: 06/23/19 12:19 Dose: 0 mls/hr Documented by: [id number] Admin: 06/23/19 11:39 Dose: 999 mls/hr Documented by: [id number] Insulin Human Regular (Novolin R U-100 Per Unit) 4 units IV NOW STA Stop: 06/23/19 10:16 Last Admin: 06/23/19 11:09 Dose: 4 units Documented by: [id number] Cosigned by: [id number] Medical Decision Making Differential Diagnosis Differential diagnoses: Headache, tension headache, cluster headache, migraine, subarachnoid hemorrhage, meningitis, mass, central venous thrombus, concussion, trauma and epidur al/subdural hemorrhage. Medical Records Attestation: I reviewed the patient's medical records. Home Medications Current Medication List: was personally reviewed by me Laboratory Data Attestation: I reviewed the patient's lab results. Result diagrams: 06/23/19 09:29 06/23/19 09:29 Lab Results 06/23/19 06/23/19 06/23/19 Range/Units 09:29 09:29 09:29 WBC 6.26 (4.8-10.8) K/uL RBC 3.36 L (4.2-5.4) M/uL Hgb 10.3 L (12.0-16.0) g/dL Hct 29.6 L (37-47) % MCV 88.1 (80-100) fL MCH 30.7 (25-34) pg MCHC 34.8 (32-36) g/dL RDW Std Deviation 47.4 H (36.4-46.3) fL RDW Coeff of Erick 14.7 H (11.5-14.5) % Plt Count 309 (130-400) K/uL MPV 9.3 (7.4-10.4) fL Immature Gran % (Auto) 0.3 % Neut % (Auto) 77.4 % Lymph % (Auto) 14.5 % Avery % (Auto) 6.5 % Eos % (Auto) 1.0 % Baso % (Auto) 0.3 % Immature Gran # (Auto) 0.02 (0.00-0.02) K/uL Neut # (Auto) 4.84 (1.4-6.5) K/uL Lymph # (Auto) 0.91 L (1.2-3.4) K/uL Avery # (Auto) 0.41 (0.11-0.59) K/uL Eos # (Auto) 0.06 (0-0.5) K/uL Baso # (Auto) 0.02 (0-0.2) K/uL PT 10.4 (9.0-12.0) Seconds INR 1.0 (0.9-1.1) Sodium 131 L (136-145) mmol/L Potassium 4.4 (3.5-5.1) mmol/L Chloride 98 (98-107) mmol/L Carbon Dioxide 21 (21-32) mmol/L Anion Gap 12.0 H (3-11) BUN 29 H (7-18) mg/dl Creatinine 1.35 H (0.6-1.2) mg/dl Est Cr Clr Drug Dosing 35.3 ml/min Est GFR ( Amer) 43.2 Est GFR (Non-Af Amer) 37.2 BUN/Creatinine Ratio 21.1 H (10-20) Glucose 332 H* (70-99) mg/dl Calcium 8.5 (8.5-10.1) mg/dl Total Bilirubin 0.6 (0.2-1) mg/dl AST 20 (15-37) U/L ALT 20 (12-78) U/L Alkaline Phosphatase 98 (45-117) U/L Troponin I < 0.015 (0-0.045) ng/ml Total Protein 7.9 (6.4-8.2) gm/dl Albumin 2.7 L (3.4-5.0) gm/dl Globulin 5.1 H (2.5-4.0) gm/dl Albumin/Globulin Ratio 0.5 L (0.9-2) Beta-Hydroxybutyric Acd 1.43 (0.2-2.81) mg/dl TSH 3.630 (0.300-4.500) uIu/ml Urine Color Urine Appearance (Clear) Urine pH (4.5-7.5) Ur Specific [place] (1.000-1.030) Urine Protein (Negative) Urine Glucose (UA) (Negative) Urine Ketones (Negative) Urine Blood (Negative) Urine Nitrite (Negative) Urine Bilirubin (Negative) Urine Urobilinogen (Negative) Ur Leukocyte Esterase (Negative) Urine WBC (Auto) (0-5) /hpf Urine RBC (Auto) (0-4) /hpf U Hyaline Cast (Auto) U Epithel Cells (Auto) (0-5) /lpf Urine Bacteria (Auto) (Negative) Urine Yeast 06/23/19 Range/Units 10:57 WBC (4.8-10.8) K/uL RBC (4.2-5.4) M/uL Hgb (12.0-16.0) g/dL Hct (37-47) % MCV (80-100) fL MCH (25-34) pg MCHC (32-36) g/dL RDW Std Deviation (36.4-46.3) fL RDW Coeff of Erick (11.5-14.5) % Plt Count (130-400) K/uL MPV (7.4-10.4) fL Immature Gran % (Auto) % Neut % (Auto) % Lymph % (Auto) % Avery % (Auto) % Eos % (Auto) % Baso % (Auto) % Immature Gran # (Auto) (0.00-0.02) K/uL Neut # (Auto) (1.4-6.5) K/uL Lymph # (Auto) (1.2-3.4) K/uL Avery # (Auto) (0.11-0.59) K/uL Eos # (Auto) (0-0.5) K/uL Baso # (Auto) (0-0.2) K/uL PT (9.0-12.0) Seconds INR (0.9-1.1) Sodium (136-145) mmol/L Potassium (3.5-5.1) mmol/L Chloride (98-107) mmol/L Carbon Dioxide (21-32) mmol/L Anion Gap (3-11) BUN (7-18) mg/dl Creatinine (0.6-1.2) mg/dl Est Cr Clr Drug Dosing ml/min Est GFR ( Amer) Est GFR (Non-Af Amer) BUN/Creatinine Ratio (10-20) Glucose (70-99) mg/dl Calcium (8.5-10.1) mg/dl Total Bilirubin (0.2-1) mg/dl AST (15-37) U/L ALT (12-78) U/L Alkaline Phosphatase (45-117) U/L Troponin I (0-0.045) ng/ml Total Protein (6.4-8.2) gm/dl Albumin (3.4-5.0) gm/dl Globulin (2.5-4.0) gm/dl Albumin/Globulin Ratio (0.9-2) Beta-Hydroxybutyric Acd (0.2-2.81) mg/dl TSH (0.300-4.500) uIu/ml Urine Color Dark Yellow Urine Appearance Clear (Clear) Urine pH 5.0 (4.5-7.5) Ur Specific [place] 1.018 (1.000-1.030) Urine Protein Negative (Negative) Urine Glucose (UA) Negative (Negative) Urine Ketones Negative (Negative) Urine Blood Negative (Negative) Urine Nitrite Negative (Negative) Urine Bilirubin Negative (Negative) Urine Urobilinogen Negative (Negative) Ur Leukocyte Esterase Trace H (Negative) Urine WBC (Auto) 1-5 (0-5) /hpf Urine RBC (Auto) 0-4 (0-4) /hpf U Hyaline Cast (Auto) Not Reportable U Epithel Cells (Auto) >30 H (0-5) /lpf Urine Bacteria (Auto) Negative (Negative) Urine Yeast Not Reportable Imaging Data Radiologist's Impression: Radiology results as stated below per my review and the radiologist's interpretation: HEAD CT NONCONTRAST CT DOSE: 537.48 mGy.cm HISTORY: Headache. TECHNIQUE: Multiaxial CT images of the head were performed without the use of intravenous contrast. Automated exposure control was utilized for this study. A dose lowering technique was utilized adhering to the principles of ALARA. Comparison: Head CT 03/19/2019. Findings: The paranasal sinuses and mastoid air cells are clear. The calvarium and skull base are intact. There is no mass, hematoma, midline shift, acute infarct. White matter hypodensity is nonspecific but suggestive of microvascular ischemic change. The ventricles and sulci demonstrate mild age-related involutional changes. Impression: No significant change compared to the prior study. No acute intracranial abnormality. Electronically signed by: Marbin Dubois M.D. 06/23/2019 10:01 AM Dictated: 06/23/1957 Transcribed: 06/23/1957 XR chest 1V portable CLINICAL HISTORY: weakness dyspnea COMPARISON STUDY: 03/19/2019 FINDINGS: Unchanged subsegmental atelectasis left base. Lungs otherwise appear clear. Central catheter remains in superior vena cava. IMPRESSION: No acute process. The above report was generated using voice recognition software. It may contain grammatical, syntax or spelling errors. Electronically signed by: Lenard Nesbitt M.D. 06/23/2019 10:41 AM Dictated: 06/23/19 1040 Transcribed: 06/23/19 104 ECG Data Attestation: I personally reviewed and interpreted this ECG as follows: Indication: other (headache) Rate (beats per minute): 76 Rhythm: sinus rhythm Findings: + other (Nonspecific T wave changes in the AV.) and + left axis deviation; no PVC Blood Pressure Blood Pressure Findings: Low blood pressure Blood Pressure Disposition: further management by hospitalist BEBETO Emmanuel Patient is a 78-year-old female with extensive past medical history as listed above in the HPI the presents the ER for headache associated with weakness and systolic blood pressures in the 60s. On evaluation patient has weakness in her bilateral lower extremities but admits to no significant back pain. She does have chronic inflammatory demyelinating polyneuropathy. She was at [facility] to receive IVIG but never received it due to her blood pressure being low in her lethargic. Upon transfer to the ER she was found to be hypotensive with systolic blood pressures in the 70s to 80s. IVs were established. Labs show mild anemia 10.3. INR was unremarkable. BMP with mild hyponatremia 131. Creatinine was at 1.35. Glucose was slightly elevated at 332. LFTs bilirubin troponin were unremarkable. UA was contaminated with multiple epithelial cells. Patient was given [address] normal saline. CT of the head showed no acute pa thology. Chest x-ray per my review showed no focal infiltrate. Patient was updated bedside. Systolic blood pressures improved to the low 100s after fluids. She was monitored closely. Discussed with the hospitalist for observation due to the weakness in the bilateral lower extremities associated with hypotension. Impression & Plan Hypotension, Headache, Weakness Critical Care Time Critical Care Time: No Discharge Plan Visit Data *Final* Discharge Date/Time: 06/23/19 12:36 Chief Complaint: Headache ED Provider: Moy Maloney Discharge Problem: Hypotension, Headache, Weakness Patient Disposition: Admitted As Inpatient Discharge Instructions Interventions: ED Discharge Assessment Last Done: 06/23/19 12:36 Discharge Problem: Hypotension Qualifiers: Hypotension type: unspecified hypotension type Qualified Code(s): I95.9 - Hypotension, unspecified Headache Qualifiers: Headache type: unspecified Headache chronicity pattern: acute headache Intractability: not intractable Qualified Code(s): R51 - Headache The scribe's documentation has been prepared under my direction and personally reviewed by me in its entirety. I confirm that the note above accurately reflects all work, treatment, procedures, and medical decision making performed by me.
[2019-06-23] MEDS ORDERED: MIRTAZAPINE TAB 15 MG TAB PO SCH (21:00)
[2019-06-23] MEDS ORDERED: INSULIN DETEMIR FLEXPEN/FLEX TOUCH 100 UNITS/ML 3ML SQ SCH (21:00)
[2019-06-24] MEDS: SODIUM CHLORIDE 0.9% 1000ML 1,000 ML IV SCH ×2 (02:17→11:20)
[2019-06-24 08:12] LABS: BUN Creatinine Ratio 24.9 (10-20); Calcium 8.4 mg/dl (8.5-10.1); Creatinine Clr Calc Pharmacy 67.1 ml/min; Est GFR (African American) 93.9; Potassium 3.5 mmol/L (3.5-5.1)
--- NOTE | 2019-06-24 08:53 | Neurology Consultation ---
Date of Consultation June 24, 2019 Assessment & Plan (1) Headache: Resolved headache which was probably related to hypotension which is currently improved. Her CT of the head is negative for hemorrhage and other acute process. No further evaluation or treatment for headache necessary at th is time. (2) CIDP (chronic inflammatory demyelinating polyneuropathy): This patient was sent to the emergency department yesterday, directly from the [facility]. She had not received her IVIG yet. At this point, I would recommend that she proceed with her IVIG treatment which she receives every 28 days. She receives 60 g of Gamunex infused over 4 to 5 hours, daily, for 2 days. She typically receives 25 mg of diphenhydramine and 325 mg of acetaminophen prior to IVIG. Should also have consultations with PT/OT while here in the hospital. I anticipate that she will be stable and tolerate her IVIG treatment well. She may follow-up with Dr. Frias in the outpatient setting. History of Present Illness Reason for Consultation: History of CIDP Requesting Physician: Alvarez Kahn MD Attending Physician: Moy Connors DO History of Present Illness The patient is a 78-year-old female with a history of chronic inflammatory demyelinating polyneuropathy diagnosed in 1999 for which she typically follows with Dr. Frias. She receives IVIG treatments every 28 days for this condition at the medical treatment unit. She was sent from the [facility] yesterday for further evaluation of hypotension and headache. In speaking with the [facility] nurse, the patient did not receive any IVIG treatments yesterday. Her CIDP typically worsens several days prior to her IVIG treatments. Her symptoms consist of chronic gait dysfunction, poor balance, and generalized weakness. She does admit that the symptoms have been chronic and have been getting worse recently, per her typical pattern. She does have some baseline dementia and seems to be a somewhat limited historian. She does admit that her headache has resolved. Her hypotension has improved. Allergies Allergy/AdvReac Type Severity Reaction Status Date / Time mycophenolate mofetil Allergy Unknown unknown Verified 06/23/19 10:24 nortriptyline Allergy Unknown unknown Verified 06/23/19 10:24 gabapentin AdvReac Intermediate DOUBLE Verified 06/23/19 10:24 VISION, NAUSEA, VOMITING Home Medications Home Medications Medication Instructions Recorded Confirmed Type acetaminophen 650 mg PO Q6H PRN #0 08/21/16 06/23/19 History hydralazine 50 mg PO Q8 #0 01/08/17 06/23/19 History clonidine HCl 0.4 mg PO Q12 #0 03/05/17 06/23/19 History Levemir U-100 Insulin 22 unit SC QAM #0 09/17/17 06/23/19 History amlodipine 10 mg PO QAM #0 01/09/18 06/23/19 History aspirin 81 mg PO QAM #0 01/09/18 06/23/19 History bisacodyl 10 mg [place] DAILY PRN #0 01/09/18 06/23/19 History magnesium hydroxide [Milk of 30 ml PO DAILY PRN #0 01/09/18 06/23/19 History Magnesia] mirtazapine [Remeron] 7.5 mg PO HS #0 01/09/18 06/23/19 History irbesartan [Avapro] 150 mg PO QAM #0 06/25/18 06/23/19 History clonidine HCl 0.1 mg PO TID PRN 08/20/18 06/23/19 History insulin lispro [Humalog U-100 1 sliding scale dose SUBCUT ACHS 08/20/18 06/23/19 History Insulin] Fleet Enema 118 ml KS HS PRN 01/06/19 06/23/19 History dimethicone [Durable Barrier] 1.36 % TOPICAL TID 06/23/19 06/23/19 History insulin detemir U-100 [Levemir 15 unit SUBCUT HS 06/23/19 06/23/19 History FlexTouch U-100 Insuln] Patient History Medical History Hypotension (Acute) Acute kidney injury (Acute) Altered mental status Obesity Hyponatremia Hyperlipidemia Diabetes mellitus (Chronic) Failure to thrive Gait abnormality Chronic inflammatory demyelinating polyneuropathy (Chronic) Dementia Hypertensive urgency CHF (congestive heart failure) Type II diastolic dysfunction per echo 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 Feels Safe at Home: Yes Safety Concerns: Feels Safe At This Time Smoking Status: Unknown if ever smoked Hx Alcohol Use: No Hx Substance Use: No Review of Systems Constitutional: no fever and no chills Eyes: no blind spots and no diplopia Ear, Nose, Mouth, Throat: no tinnitus and no hearing loss Respiratory: no cough and no dyspnea Cardiovascular: no chest pain and no palpitations Gastrointestinal: no abdominal pain and no vomiting Genitourinary: no dysuria Musculoskeletal: no myalgia Integumentary: no rash and no lesions Neurologic: as per Subjective / HPI, + gait abnormality, + unsteadiness and + numbness Psychiatric: no depression and no anxiety Hematologic / Lymphatic: no easy bleeding and no easy bruising Physical Exam Physical Exam: The patient is a well-developed, well-nourished elderly. She is alert and oriented to person, hospital, and day of the week. She exhibits slow processing speed. Recent memory mildly impaired. Remote memory intact. Attention normal. Concentration mildly impaired. Patient is able to name objects and repeat phrases. Patient exhibits an age-appropriate fund of knowledge and normal comprehension of vocabulary. Visual narvaez full to confrontation. Visual acuity normal. Pupils equal round react to light and accommodation. Eye movements normal. No ophthalmoplegia or ptosis. Facial sensation intact. There is no facial droop or weakness. Hearing intact. Palate elevates to midline. Shoulder shrug intact. Tongue protrudes to midline. There is a length dependent sensory deficit in all 4 limbs all modalities. Deep tendon reflexes are diffusely diminished. Plantar responses downgoing. There is no dysdiadochokinesia or dysmetria [id number]-[id number] or [id number]-[id number] bilaterally. Movements for the legs are somewhat slow, however. Ophthalmoscopic examination reveals normal-appearing optic disks and posterior segments. No papilledema or hemorrhages. Carotid pulses normal bilaterally, no bruits to auscultation. Gait and station not tested due to safety concerns. Patient exhibits mild generalized weakness for the arms and legs bilaterally. Muscle tone normal. No atrophy. No abnormal movements observed. Results & Data Vital Signs (Past 12 Hours) Vital Signs Temp Pulse Pulse Resp BP BP Pulse Ox 06/24/19 07:18 36.6 C 91 H 20 154/77 H 98 06/24/19 03:12 37.1 C 96 H 18 125/71 97 06/24/19 00:05 36.9 C 110 H 18 167/76 H 96 06/23/19 22:30 105 H Laboratory Results Recently completed labs reviewed. WBC 6.26, hemoglobin 10.3, hematocrit 29.6, platelet count 309, sodium 137, potassium 3.5, BUN 18, creatinine 0.71, glucose [address] of the head completed yesterday revealed chronic microvascular ischemic change and atrophy. No hemorrhage or acute process. Images and report reviewed. Electrocardiogram completed yesterday revealed sinus rhythm with sinus arrhythmia, 76 bpm. (1) Headache Headache chronicity pattern: acute headache Headache type: unspecified Intractability: not intractable Qualified Code(s): R51 - Headache
[2019-06-24] MEDS ORDERED: IRBESARTAN 150 MG TAB PO SCH (09:00)
[2019-06-24] MEDS ORDERED: ASPIRIN 81 MG CHEW PO SCH (09:00)
[2019-06-24] MEDS ORDERED: INSULIN DETEMIR FLEXPEN/FLEX TOUCH 100 UNITS/ML 3ML SC SCH ×2 (09:00)
--- NOTE | 2019-06-24 13:29 | Discharge Summary ---
Date of Service June 24, 2019 Admission HPI Per Admitting Provider 78-year-old female from [facility] who receives intravenous IVIG on a monthly basis for chronic inflammatory demyelinating polyneuropathy. She [facility] today when she was found to have hypotension. She denies any associated chest pain or shortness of breath. She states her weakness has been getting gradually worse however. She denies any fever, chills, nausea, vomiting, diarrhea, dysuria. She had a similar episode back in February of this year but had a UTI at that time. Urine analysis is unremarkable currently. She has mild CRYS with creatinine 1.3. She is not on diuretic therapy. She is responding to IV fluids. She does not appear to be septic. She will be placed in observation status for hydration and several of her blood pressure medications will be placed on hold. Neurology consultation has been requested. Admission Exam Per Admitting Provider Constitutional-no fever or chills. Worsening generalized weakness more pronounced in the lower legs bilaterally ENT-no blurred vision, no double vision, no epistaxis, no sore throat Respiratory-no cough, no wheezing, no shortness of breath Cardiac-no palpitations, no chest pain, no syncope GI-no nausea, vomiting, diarrhea, melena, hematochezia -no urinary retention, no urinary incontinence, no dysuria, no hematuria Musculoskeletal-no joint pain, no muscle tenderness Skin-no bruising, no rashes, no pruritus Neuro-chronic generalized weakness which has progressed mostly in bilateral lower extremities Psych-no depression, no anxiety Principal Diagnosis Hypotension likely secondary to dehydration Discharge Exam General: In NAD, pleasant Neuro: Alert and oriented x [address] (hx of dementia) CV: RRR, no m/r/g Pulm: CTAB, equal breath sounds bilaterally Abdomen: +BS, NTTP in all quadrants, non-distended LE: no LE edema, no calf tenderness Discharge Data Allergies Allergy/AdvReac Type Severity Reaction Status Date / Time mycophenolate mofetil Allergy Unknown unknown Verified 06/23/19 10:24 nortriptyline Allergy Unknown unknown Verified 06/23/19 10:24 gabapentin AdvReac Intermediate DOUBLE Verified 06/23/19 10:24 VISION, NAUSEA, VOMITING Consultations 06/23/19 11:37 ED Decision to Admit Stat 06/23/19 13:26 Consult Neurology Routine Ordered Studies 06/23/19 09:34 CT head/brain wo con Stat Hospital Course (1) Hypotension: 78F with hx of DM, chronic demyelinating polyneuropathy (on IVIG monthly) presented from [facility] to [facility] for [facility]. Pt was hypotensive while receiving IVIG treatment at [facility] unit to 80s/40s. Denied any symptoms aside from weakness. Found to have mild CRYS. Likely hypotensive in the setting of dehydration vs. over medication. HYPOTENSION Combined effects of multiple blood pressure medications and volume depletion BP improved shortly after admission, Pt received IVFs Recommend at least daily BP checks and adjust medications as needed Continued home Losartan, amlodipine, clonidine, hydralazine Acute kidney injury Cr 1.3 improved to 0.7 today s/p IVFs Not on any diuretic therapy Chronic inflammatory demyelinating polyneuropathy Consulted neurology: continue intravenous immunoglobulin treatment Please ensure gets IVIG treatment this week as pt did not receive it yesterday: batch attendant aware and will ensure scheduled Diabetes mellitus Continued Levemir DVT prophylaxis: Received Lovenox Full code (2) CIDP (chronic inflammatory demyelinating polyneuropathy): (3) Acute kidney injury: (4) Hypertension: (5) Depression: (6) Hyperlipidemia: (7) Diabetes mellitus: (8) Gait abnormality: (9) Dementia: Total Time Total Time Spent Total Time Spent (In Minutes): <30 mins Discharge Plan Discharge Items Patient Disposition: Transfer Assisted Fac Reason For Visit: HYPOTENSION Discharge Diagnosis: Hypotension Condition: Good Discharge Goals: Decrease discomfort, Diagnostic testing and Therapeutic intervention Activity: Resume your previous activity Non-emergency contact: Primary Care Provider Call non-emergency contact if: you have any medication questions, your symptoms worsen, your pain is worsening and your temperature is above 100.5 Follow-up/Referrals: [facility] [Primary Care Provider] - Diet: Carb Consistent or DM2 Addtl Provider Instructions: Ms. Rodriguez you were admitted for concern of mildly low blood pressure while you were receiving your IVIG treatment at our [facility] unit. Your blood pressure was likely low in the setting of you being dehydrated. Your blood pressure improved and you are being sent back to [facility]. We need to keep a close eye on your blood pressure to make sure you are not receiving too much blood pressure medication. -We recommend checking blood pressure twice daily and adjusting blood pressure medications as indicated -Ensure adequate hydration, 60oz per day Prescriptions: Continued acetaminophen 325 mg Tablet 650 mg PO Q6H PRN (Reason: Mild pain, fever) Qty: 0 RF: 0 hydralazine 50 mg Tablet 50 mg PO Q8 Qty: 0 RF: 0 clonidine HCl 0.3 mg Tablet 0.4 mg PO Q12 Qty: 0 RF: 0 Levemir U-100 Insulin 100 unit/mL Solution 22 unit SC QAM Qty: 0 RF: 0 magnesium hydroxide [Milk of Magnesia] 400 mg/5 mL Suspension 30 ml PO DAILY PRN (Reason: Constipation) Qty: 0 RF: 0 amlodipine 10 mg Tablet 10 mg PO QAM Qty: 0 RF: 0 bisacodyl 10 mg Suppository 10 mg [place] DAILY PRN (Reason: constipation) Qty: 0 RF: 0 aspirin 81 mg Tablet,Chewable 81 mg PO QAM Qty: 0 RF: 0 mirtazapine [Remeron] 15 mg Tablet 7.5 mg PO HS Qty: 0 RF: 0 irbesartan [Avapro] 150 mg Tablet 150 mg PO QAM Qty: 0 RF: 0 clonidine HCl 0.1 mg Tablet 0.1 mg PO TID PRN (Reason: sysotolic bp >/= to 170) RF: 0 insulin lispro [Humalog U-100 Insulin] 100 unit/mL Solution 1 sliding scale dose SUBCUT ACHS RF: 0 Fleet Enema 19-7 gram/118 mL Enema 118 ml [place] HS PRN (Reason: Constipation) RF: 0 Levemir FlexTouch U-100 Insuln 100 unit/mL (3 mL) Insulin Pen 15 unit SUBCUT HS RF: 0 Durable Barrier 1.3 % Cream 1.36 % TOPICAL TID RF: 0 Discharge Orders: Discharge Order (Routine); Ordered 06/24/19 Ordered By: Mauricio Camarena Skilled Items Patient informed of condition?: Yes DNR: No Discharge Level of Care: Skilled Communicable Disease: No Discharge Prognosis: Stable Admission Data Admit Date/Time: 06/23/19 12:04 Attending Provider: Moy Connors Admit Provider: Alvarez Kahn Primary Care Provider: Pippa Sheehan Other Providers: Alvarez Kahn ; Ron Frias III Service: Telemetry Medical Other Interventions: Discharge Summary Assessment (RN) Last Done: 06/24/19 12:21 DC Date/Time DO NOT enter until pt leaves facility: 06/24/19 13:35 Supervising Physician Co-Signing Physician Notes I personally examined the patient and verified all wright points of history and exam, discussed case, and agree with decision making with Dr Camarena. Feeling fine. Blood pressures noted. Discussed that her low readings may have been due to transient factors like dehydration, or possibly due to more long- term factors like as she ages she may be getting more sensitive to her blood pressure medicines, making the "effective dose" higher. Otherwise she feels good and would like to get out of the hospital. Vitals noted, in general she is awake and alert pleasant no distress. HEENT normal cephalic atraumatic mucous membranes moist. Breathing unlabored no accessory muscle use good effort. Skin shows no rashes no pallor or icterus. Low blood pressurestable for return to [facility]. PCP/nursing staff to continue to follow her blood pressures and make appropriate adjustments to her med regimen in that setting. Resident Activity Tracking Resident Involvement: Resident Care Provided Care Provided: Adult Hospital Medicine
== END 2019-06-24 13:35 ==
LOC: 2W 09:05 → ED 09:05 → SUATTDRO 12:04 → 2W 12:36